=== PATIENT | female | born 1975 | race Caucasian/White ===

== ENCOUNTER 2017-02-09 20:18 | Emergency (ER) | payer MEDICARE ==
[2017-02-09 20:56] VITALS: BP 107/71
--- NOTE | 2017-02-10 00:13 | EDM.PDOC ---
ED HPI GENERAL MEDICAL PROBLEM - General Chief Complaint: General Stated Complaint: DIZZINESS Time Seen by Provider: 02/09/17 21:08 Source of Information: Reports: Patient, Family History Limitations: Reports: No Limitations - History of Present Illness INITIAL COMMENTS - FREE TEXT/NARRATIVE: History of present illness: [41-year-old female presenting with her mother with an episode of dizziness in which she felt like she was going to pass out. In visiting with her mother she does have episodes of dizziness but has never passed out. She seems to have a learning disability but pleasant and conversant. She had no chest pain shortness breath with this. Denies any visual disturbances. No nausea or vomiting.] Review of systems: As per history of present illness and below otherwise all systems reviewed and negative. Past medical history: As per history of present illness and as reviewed below otherwise noncontributory. Surgical history: As per history of present illness and as reviewed below otherwise noncontributory. Social history: No reported history of drug or alcohol abuse. Family history: As per history of present illness and as reviewed below otherwise noncontributory. Physical exam: HEENT: Atraumatic, normocephalic, pupils reactive, negative for conjunctival pallor or scleral icterus, mucous membranes moist, throat clear, neck supple, nontender, trachea midline. Lungs: Clear to auscultation, breath sounds equal bilaterally, chest nontender. Heart: S1S2, regular, negative for clicks, rubs, or JVD. Abdomen: Soft, nondistended, nontender. Negative for masses or hepatosplenomegaly. Negative for costovertebral tenderness. Pelvis: Stable nontender. Genitourinary: Deferred. Rectal: Deferred. Extremities: Atraumatic, negative for cords or calf pain. Neurovascular unremarkable. Neuro: Awake, alert, oriented. Exam nonfocal. Diagnostics: [Head CT was obtained tonight and appears she may have a Chiari 1 malformation. 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 This was discussed with mom. I also provided some information on this disorder. Many of the symptoms that she can have with this disorder she has. The information provided was from the [facility] site. She will follow-up with her primary care to pursue further workup and ultimately perhaps a neuro referral would be helpful] Definitive disposition and diagnosis as appropriate pending reevaluation and review of above. Generalized Pain Score (Numeric/FACES): 10 - Related Data Allergies Allergy/AdvReac Type Severity Reaction Status Date / Time omeprazole AdvReac Intermediate Dizziness Verified 01/26/17 15:46 Home Meds: Home Meds Cholecalciferol (Vitamin D3) [Vitamin D] 2,000 unit PO DAILY 06/12/13 [History] Ibuprofen [Advil] 400 mg PO DAILY PRN 05/07/15 [History] Lansoprazole [Prevacid] 30 mg PO DAILY 05/07/15 [History] Sucralfate [Carafate] 1 gm PO BEDTIME 05/07/15 [History] Hydrochlorothiazide/Lisinopril [Lisinopril-HCTZ 20-25 MG] 1 tab PO DAILY [History] busPIRone [Buspar] 10 mg PO DAILY 02/09/17 [History] Past Medical History HEENT History: Reports: Other (See Below) Other HEENT History: heavy wax Cardiovascular History: Reports: Hypertension Respiratory History: Reports: None Other Gastrointestinal History: barretts esophagus Musculoskeletal History: Reports: Back Pain, Chronic Other Musculoskeletal History: scoliosis, kyphosis. bulging lumbar disk. Psychiatric History: Reports: Anxiety Other Psychiatric History: learning disabled. - Infectious Disease History Infectious Disease History: Reports: Chicken Pox - Past Surgical History HEENT Surgical History: Reports: Tonsillectomy Other HEENT Surgeries/Procedures: lasik eye surg. , adnoidectomy GI Surgical History: Reports: Appendectomy, Cholecystectomy Female Surgical History: Reports: Hysterectomy Social & Family History - Tobacco Use Smoking Status *Q: Never Smoker Second Hand Smoke Exposure: No - Caffeine Use Caffeine Use: Reports: Coffee - Alcohol Use Days Per Week of Alcohol Use: 0 - Recreational Drug Use Recreational Drug Use: No ED ROS GENERAL - Review of Systems Review Of Systems: ROS reveals no pertinent complaints other than HPI. ED EXAM, GENERAL - Physical Exam Exam: See Below Course - Vital Signs Last Recorded V/S: Last Vital Signs Temp 35.9 C 02/09/17 21:05 Pulse 94 02/09/17 21:05 Resp 16 02/09/17 21:05 BP 107/71 02/09/17 21:05 Pulse Ox 92 L 02/09/17 21:05 Orthostatic Blood Pressure [ 102/82 Standing] Orthostatic Blood Pressure [ 120/70 Sitting] Orthostatic Blood Pressure [ 106/70 Supine] - Orders/Labs/Meds Orders: Active Orders 24 hr Category Date Time Status Ear Irrigation [RC] ASDIRECTED Care 02/09/17 21:19 Active Orthostatic Vital Signs [RC] ASDIRECTED Care 02/09/17 21:20 Active Head wo Cont [CT] Stat Exams 02/09/17 22:18 Taken Labs: Laboratory Tests 02/09/17 02/09/17 Range/Units 21:55 21:55 WBC 11.5 H (4.5-11.0) K/uL RBC 4.18 (3.30-5.50) M/uL Hgb 13.2 (12.0-15.0) g/dL Hct 38.0 (36.0-48.0) % MCV 91 (80-98) fL MCH 32 H (27-31) pg MCHC 35 (32-36) % Plt Count 233 (150-400) K/uL Neut % (Auto) 71 H (36-66) % Lymph % (Auto) 23 L (24-44) % Terry % (Auto) 6 (2-6) % Eos % (Auto) 0 L (2-4) % Baso % (Auto) 0 (0-1) % Sodium 136 L (140-148) mmol/L Potassium 3.7 (3.6-5.2) mmol/L Chloride 100 (100-108) mmol/L Carbon Dioxide 30 (21-32) mmol/L Anion Gap 9.7 (5.0-14.0) mmol/L BUN 11 (7-18) mg/dL Creatinine 0.8 (0.6-1.0) mg/dL Est Cr Clr Drug Dosing 72.45 mL/min Estimated GFR (MDRD) > 60 (>60) Glucose 103 (74-106) mg/dL Calcium 9.7 (8.5-10.1) mg/dL Total Bilirubin 0.3 (0.2-1.0) mg/dL AST 15 (15-37) U/L ALT 21 (12-78) U/L Alkaline Phosphatase 42 L (46-116) U/L Total Protein 7.2 (6.4-8.2) g/dL Albumin 3.7 (3.4-5.0) g/dL Globulin 3.5 (2.3-3.5) g/dL Albumin/Globulin Ratio 1.1 L (1.2-2.2) Departure - Departure Time of Disposition: 00:13 Disposition: Home, Self-Care 01 Condition: Good Clinical Impression: Chiari I malformation - Discharge Information Forms: ED Department Discharge Additional Instructions: As discussed I would recommend following up with her primary care so that the MRIs that we discussed could be ordered. After that perhaps a referral to neurology would be helpful. - My Orders Last 24 Hours: My Active Orders 02/09/17 21:19 Ear Irrigation [RC] ASDIRECTED 02/09/17 21:20 Orthostatic Vital Signs [RC] ASDIRECTED 02/09/17 22:18 Head wo Cont [CT] Stat - Assessment/Plan Last 24 Hours: My Active Orders 02/09/17 21:19 Ear Irrigation [RC] ASDIRECTED 02/09/17 21:20 Orthostatic Vital Signs [RC] ASDIRECTED 02/09/17 22:18 Head wo Cont [CT] Stat
== END 2017-02-10 00:29 | disposition home or self-care (01) ==
LOC: JP.ED 20:18
DX: G93.5 Compression of brain (principal); I10 Essential (primary) hypertension; F41.9 Anxiety disorder, unspecified; Z90.49 Acquired absence of other specified parts of digestive tract; Z90.710 Acquired absence of both cervix and uterus; Z98.890 Other specified postprocedural states; Z79.899 Other long term (current) drug therapy; Z88.8 Allergy status to other drugs, medicaments and biological substances
CPT/HCPCS: 36415; 70450; 80053; 85025; 99284; 99285-25

== ENCOUNTER 2017-07-02 06:44 | Day surgery (SDC) | payer MEDICARE ==
[2017-07-02] MEDS ORDERED: Dextrose 5%-Lactated Ringers 1,000 ML IV SCH (07:45)
[2017-07-02] MEDS ORDERED: fentaNYL 100 MCG/2 ML SDV ONE (07:56)
[2017-07-02] MEDS ORDERED: Propofol 200 MG/20 ML SDV ONE (07:56)
[2017-07-02] MEDS ORDERED: Glycopyrrolate 0.2 MG/ML 2 ML SDV IVPUSH ONE (08:00)
[2017-07-02 09:41] VITALS: BP 122/79
--- NOTE | 2017-07-10 14:02 | OR ---
DATE OF PROCEDURE: 07/02/2017 PREOPERATIVE DIAGNOSIS: Worsening gastroesophageal reflux disease. POSTOPERATIVE DIAGNOSES: 1. Small hiatal hernia with associated active gastroesophageal reflux disease and possible Zavala's esophagus. 2. Multiple gastric polyps. 3. Retained gastric bile with diffuse gastritis. OPERATIVE PROCEDURE: Esophagogastroduodenoscopy with: 1. Biopsies of antrum for CLOtest. 2. Biopsies of esophagogastric junction for histologic evaluation. 3. Gastric polypectomy by snare technique. ANESTHESIA: IV sedation. INDICATIONS FOR PROCEDURE: A 41-year-old presenting with progressively worsening problems with gastroesophageal reflux symptoms. The plan is to proceed with upper GI endoscopy with biopsies as indicated. Potential risks including bleeding and perforation were discussed with the patient and her mother and they wished to proceed. DETAILS OF PROCEDURE: The patient was taken to the operating room and placed in a left lateral decubitus position. IV sedation was administered after which the upper GI endoscope was passed orally through the length of the esophagus and into the stomach with retroflexion view of the fundus, thereafter through the pyloric channel into the junction of the third and fourth portions of the duodenum. Findings included normal hypopharynx, larynx, upper esophageal sphincter, and esophageal body. At the EG junction, the patient had a small hiatal hernia with quite active gastroesophageal reflux disease with considerable reddening and friability of the mucosa. There was some upward extension of the gastric type mucosa consistent with possible Zavala's esophagus, no strictures or plaquing were noted. Within the stomach, there was more or less diffuse gastritis associated with some moderate amount of retained bile. There were multiple polyps located within the gastric fundus and body consistent with long-term acid blockade treatment, none of these appeared to be worrisome, but the largest one was excised for histologic confirmation. The pyloric channel and visualized portions of the duodenum were unremarkable. At this point, biopsies were obtained from the antrum and sent for CLOtest with H. pylori and then multiple biopsies were obtained from the esophagogastric junction and sent for histologic evaluation. Finally, the largest of the gastric polyps in the gastric body was encircled at its base with a snare and cauterized across its base with the snare and then retrieved with a basket and sent for histologic evaluation. Good hemostasis was noted at all sites of the biopsies and the polypectomy and the procedure was concluded. The patient was taken to the recovery room in satisfactory condition. Plan will be to continue the patient with Protonix and she would appear to be probably a reasonable candidate for antireflux procedure. This will be discussed on an ongoing basis with the patient and her mother. Ubalod Mancera MD /[id number]
== END 2017-07-02 10:21 | disposition home or self-care (01) ==
LOC: JP.SDS 06:44
PROVIDERS: ATTEND Surgery
DX: K31.7 Polyp of stomach and duodenum (principal); K29.70 Gastritis, unspecified, without bleeding; K44.9 Diaphragmatic hernia without obstruction or gangrene; K21.9 Gastro-esophageal reflux disease without esophagitis; I10 Essential (primary) hypertension; F41.9 Anxiety disorder, unspecified; Z90.49 Acquired absence of other specified parts of digestive tract; Z90.710 Acquired absence of both cervix and uterus; Z88.8 Allergy status to other drugs, medicaments and biological substances
CPT/HCPCS: 36415; 43239; 43251; 80048; 82306; 83735; 87081; 88305; J2704; J3010; J7042; J3490

== ENCOUNTER 2017-07-03 10:10 | Emergency (ER) | payer MEDICARE ==
[2017-07-03 10:28] VITALS: BP 122/77
--- NOTE | 2017-07-03 10:39 | EDM.PDOC ---
ED HPI GENERAL MEDICAL PROBLEM - General Chief Complaint: ENT Problem Stated Complaint: SOMETHING IN RIGHT SIDE OF NOSE Time Seen by Provider: 07/03/17 10:39 Source of Information: Reports: Patient History Limitations: Reports: No Limitations - History of Present Illness INITIAL COMMENTS - FREE TEXT/NARRATIVE: pt feels like her rt nostril is plugged. Onset: Gradual Duration: Day(s):, Getting Worse Location: Reports: Face Associated Symptoms: Reports: Other ( rt nare is plugged. ) - Related Data Allergies Allergy/AdvReac Type Severity Reaction Status Date / Time omeprazole AdvReac Intermediate Dizziness Verified 07/02/17 07:07 Home Meds: Home Meds Cholecalciferol (Vitamin D3) [Vitamin D] 2,000 unit PO DAILY 06/12/13 [History] Lansoprazole [Prevacid] 30 mg PO DAILY 05/07/15 [History] Sucralfate [Carafate] 1 gm PO BEDTIME 05/07/15 [History] Hydrochlorothiazide/Lisinopril [Lisinopril-HCTZ 20-25 MG] 1 tab PO DAILY [History] Acetaminophen [Tylenol] 325 - 650 mg PO Q6HR PRN 07/02/17 [History] Acetaminophen/Caffeine [Excedrin Tension Headache] 2 tab PO Q6HR PRN 07/02/17 [ History] Calcium Carbonate [Tums] 500 mg PO DAILY 07/02/17 [History] Carboxymethyl/Gly/Poly80/Pf [Refresh Optive Advanced Drops] 1 each OP ASDIRECTED 07/02/17 [History] Krill/Om-3/DHA/EPA/Phospho/Ast [Krill Oil 500 mg Softgel] 1 each PO DAILY [History] MV-Min/Vit C/Glu/Teodora HCl/HC124 [Airborne Effervescent Tablet] 1 each PO DAILY [History] Past Medical History HEENT History: Reports: Other (See Below) Other HEENT History: heavy wax Cardiovascular History: Reports: Hypertension Respiratory History: Reports: None Gastrointestinal History: Reports: GERD Other Gastrointestinal History: barretts esophagus Genitourinary History: Reports: None Musculoskeletal History: Reports: Back Pain, Chronic, Other (See Below) Other Musculoskeletal History: scoliosis, kyphosis. bulging lumbar disk. bursitis left hip Neurological History: Reports: None Psychiatric History: Reports: Anxiety Other Psychiatric History: learning disabled. - Infectious Disease History Infectious Disease History: Reports: Chicken Pox - Past Surgical History HEENT Surgical History: Reports: Adenoidectomy, Myringotomy w Tube(s), Tonsillectomy Other HEENT Surgeries/Procedures: lasik eye surg. , adnoidectomy Cardiovascular Surgical History: Reports: None GI Surgical History: Reports: Appendectomy, Cholecystectomy, Colonoscopy, EGD Female Surgical History: Reports: Hysterectomy Neurological Surgical History: Reports: C-Spine Musculoskeletal Surgical History: Reports: None Social & Family History - Family History Family Medical History: Noncontributory - Tobacco Use Smoking Status *Q: Never Smoker Second Hand Smoke Exposure: No - Caffeine Use Caffeine Use: Reports: Coffee, Soda - Alcohol Use Days Per Week of Alcohol Use: 0 - Recreational Drug Use Recreational Drug Use: No ED ROS ENT - Review of Systems Review Of Systems: See Below Constitutional: Reports: No Symptoms HEENT: Reports: Rhinitis Respiratory: Reports: Other ( difficulty breathing through the nostrils. ) Cardiovascular: Reports: No Symptoms Endocrine: Reports: No Symptoms GI/Abdominal: Reports: No Symptoms : Reports: No Symptoms Musculoskeletal: Reports: No Symptoms Skin: Reports: No Symptoms ED EXAM, ENT - Physical Exam Exam: See Below Text/Narrative:: pt feels like her nose is plugged. It was noted she had swelling in the area. Exam Limited By: No Limitations General Appearance: Alert, Anxious, Mild Distress Ears: Normal TMs Nose: Nasal Swelling, Other ( Pt has considerable swelling of the mucous membranes of the nose. She may have a polyp present. Because of all the swelling it is difficult to visualize. ) Mouth/Throat: Normal Inspection Head: Atraumatic Neck: Normal Inspection Respiratory/Chest: No Respiratory Distress Course - Vital Signs Last Recorded V/S: Last Vital Signs Temp 36.7 C 07/03/17 10:26 Pulse 77 07/03/17 10:26 Resp 14 07/03/17 10:26 BP 122/77 07/03/17 10:26 Pulse Ox 100 07/03/17 10:26 - Orders/Labs/Meds Labs: Laboratory Tests 07/03/17 Range/Units 10:41 WBC 10.7 (4.5-11.0) K/uL RBC 4.25 (3.30-5.50) M/uL Hgb 13.0 (12.0-15.0) g/dL Hct 37.7 (36.0-48.0) % MCV 89 (80-98) fL MCH 31 (27-31) pg MCHC 35 (32-36) % Plt Count 229 (150-400) K/uL Neut % (Auto) 72 H (36-66) % Lymph % (Auto) 22 L (24-44) % Moody % (Auto) 6 (2-6) % Eos % (Auto) 1 L (2-4) % Baso % (Auto) 0 (0-1) % Meds: Medications Discontinued Medications Generic Name Dose Route Start Last Admin Trade Name Freq PRN Reason Stop Dose Admin Oxymetazoline HCl 1 ml 07/03/17 10:59 07/03/17 11:10 Afrin Original 0.05% Nasal [place] TAY 07/03/17 11:00 1 ml ONETIME ONE Administration Triamcinolone Acetonide 60 mg 07/03/17 10:58 07/03/17 11:10 Kenalog-40 INJECT 07/03/17 10:59 60 mg ASDIRECTED ONE Administration Departure - Departure Time of Disposition: 11:01 Disposition: Home, Self-Care 01 Condition: Fair Clinical Impression: Acute allergic rhinitis - Discharge Information Instructions: Allergic Rhinitis Referrals: Latisha Palumbo PA [Primary Care Provider] - Forms: ED Department Discharge Care Plan Goals: cool mist humidifier, afrin nasal spray-- use tid for 1 week, referal to ENt, Consider steriod nasal spray in the future.
[2017-07-03] MEDS ORDERED: Triamcinolone Acetonide 40 MG/ML 1 ML MDV INJECT ONE (10:58)
[2017-07-03] MEDS ORDERED: Oxymetazoline 0.05% Nasal Spray 15 ML Bottle NAS ONE (10:59)
== END 2017-07-03 11:21 | disposition home or self-care (01) ==
LOC: JP.ED 10:10
DX: J30.9 Allergic rhinitis, unspecified (principal); J00 Acute nasopharyngitis [common cold]; I10 Essential (primary) hypertension; Z88.8 Allergy status to other drugs, medicaments and biological substances; Z79.899 Other long term (current) drug therapy
CPT/HCPCS: 36415; 85025; 99283; A9270; J3301

== ENCOUNTER 2017-08-22 06:23 | Inpatient (IN) | payer MEDICARE ==
[2017-08-22] MEDS ORDERED: Acetaminophen 500 MG Tab PO ONE (07:00)
[2017-08-22] MEDS ORDERED: Scopolamine 1.5 MG Transdermal Patch TOP SCH (07:00)
[2017-08-22] MEDS ORDERED: ceFAZolin 2 GM in Premix Bag 1 BAG IV ONE (07:00)
[2017-08-22] MEDS ORDERED: Dextrose 5%-Lactated Ringers 1,000 ML IV SCH (07:00)
[2017-08-22] MEDS ORDERED: Celecoxib 200 MG Cap PO ONE (07:00)
[2017-08-22] MEDS ORDERED: Neostigmine Methylsulfate 1 MG/ML 5 ML Syringe ONE (08:01)
[2017-08-22] MEDS ORDERED: Rocuronium 50 MG/5 ML Vial ONE (08:01)
[2017-08-22] MEDS ORDERED: Ondansetron 4 MG/2 ML SDV ONE (08:01)
[2017-08-22] MEDS ORDERED: Dexamethasone 4 MG/ML SDV ONE (08:01)
[2017-08-22] MEDS ORDERED: Propofol 200 MG/20 ML SDV ONE (08:01)
[2017-08-22] MEDS ORDERED: Succinylcholine 200 MG/10 ML MDV ONE (08:01)
[2017-08-22] MEDS ORDERED: Glycopyrrolate 0.2 MG/ML 5 ML MDV ONE (08:01)
[2017-08-22] MEDS ORDERED: Ropivacaine 40 ML, Dexamethasone 8 MG, EPINEPHrine 0.4 MG, Sodium Chloride 0.9% 37.6 ML NERVRT ONE ×4 (08:15)
[2017-08-22] MEDS ORDERED: Naloxone 0.4 MG/ML SDV IV PRN (11:20)
[2017-08-22] MEDS ORDERED: HYDROmorphone/Normal Saline 15 MG/30 ML PCA IV PRN (11:20)
[2017-08-22] MEDS ORDERED: hydrOXYzine HCl 25 MG Tab PO PRN (11:32)
[2017-08-22] MEDS ORDERED: hydrOXYzine HCl 100 MG/2 ML SDV IM PRN (11:32)
[2017-08-22] MEDS ORDERED: Ondansetron 4 MG/2 ML SDV IV PRN (11:33)
[2017-08-22] MEDS: Dextrose 5%-Lactated Ringers 1,000 ML IV SCH ×2 (11:48→18:26)
[2017-08-22] MEDS: Metoclopramide 10 MG/2 ML SDV IV SCH ×2 (15:24→23:58)
[2017-08-22] MEDS: Pantoprazole 40 MG Vial IV SCH (15:24)
[2017-08-22] MEDS: VERIFY SCOP PATCH TOP SCH (15:25)
[2017-08-23] MEDS: Dextrose 5%-Lactated Ringers 1,000 ML IV SCH (01:06)
[2017-08-23] MEDS: Metoclopramide 10 MG/2 ML SDV IV SCH ×3 (07:04→22:37)
[2017-08-23] MEDS ORDERED: Dextrose 5%-Lactated Ringers 1,000 ML IV SCH (07:44)
[2017-08-23] MEDS: Fluticasone Propionate Nasal Spray 16 GM Bottle NAS SCH (08:22)
[2017-08-23] MEDS ORDERED: Non-Formulary Medication 1 Each (Hydrochlorothiazide/Lisinopril [Lisinopril-Hctz 20-25 Mg] PO SCH (09:00)
[2017-08-23] MEDS ORDERED: Acetaminophen 325 MG Tab PO SCH (09:00)
[2017-08-23] MEDS: Lisinopril 20 MG Tab PO SCH (09:12)
[2017-08-23] MEDS: Hydrochlorothiazide 25 MG Tab PO SCH (09:13)
[2017-08-23] MEDS: VERIFY SCOP PATCH TOP SCH (09:13)
[2017-08-23] MEDS ORDERED: hydrOXYzine HCl 100 MG/2 ML SDV IM PRN (10:01)
[2017-08-23] MEDS: Acetaminophen 325 MG Tab PO SCH ×3 (11:23→22:37)
[2017-08-23] MEDS: Pantoprazole 40 MG Vial IV SCH (14:09)
--- NOTE | 2017-08-23 16:17 | PCM.SURGPN ---
- General Info Date of Service: 08/23/17 Date of Surgery/Procedure: 08/22/17 POD#: 2 Post-Op Diagnosis: GERD Functional Status: Reports: Pain Controlled, Tolerating Diet, Incentive Spirometry - Review of Systems General: Reports: No Symptoms Pulmonary: Reports: No Symptoms Cardiovascular: Reports: No Symptoms Gastrointestinal: Reports: No Symptoms - Patient Data Vitals - Most Recent: Last Vital Signs Temp 98.4 F 08/23/17 11:29 Pulse 58 L 08/23/17 11:29 Resp 18 08/23/17 11:29 BP 93/57 L 08/23/17 11:29 Pulse Ox 97 08/23/17 11:29 Weight - Most Recent: 178 lb I&O - Last 24 Hours: Intake & Output 08/23/17 08/23/17 08/23/17 06:59 14:59 22:59 Intake Total 2661 820 Output Total 100 500 Balance 2561 320 Med Orders - Current: Current Medications Acetaminophen (Tylenol) 650 mg PO Q6H [facility] Last Admin: 08/23/17 11:23 Dose: 650 mg Fluticasone Propionate (Flonase) 0 gm TAY DAILY [facility] Last Admin: 08/23/17 08:22 Dose: 1 spray Hydrochlorothiazide (Hydrochlorothiazide) 25 mg PO DAILY [facility] Last Admin: 08/23/17 09:13 Dose: 25 mg Hydromorphone HCl (Dilaudid Curing Oven Tender 15 Mg In Ns 30 Ml) 0 mg IV ASDIRECTED PRN; Protocol PRN Reason: SR VICE PRESIDENT PAIN CONTROL Last Admin: 08/22/17 11:32 Dose: 15 mg Hydroxyzine HCl (Atarax) 100 mg PO Q4H PRN PRN Reason: PAIN Hydroxyzine HCl (Vistaril) 100 mg IM Q4H PRN PRN Reason: PAIN Dextrose/Lactated Ringer's (Dextrose 5%-Lactated Ringers) 1,000 mls @ 80 mls/ hr IV ASDIRECTED [facility] Last Admin: 08/23/17 08:23 Dose: 80 mls/hr Ibuprofen (Motrin) 400 mg CHEW Q6H [facility] Last Admin: 08/23/17 14:09 Dose: 400 mg Lisinopril (Prinivil) 20 mg PO DAILY [facility] Last Admin: 08/23/17 09:12 Dose: 20 mg Metoclopramide HCl (Reglan) 10 mg IV Q8H [facility] Last Admin: 08/23/17 14:09 Dose: 10 mg Naloxone HCl (Narcan) 0.1 mg IV ASDIRECTED PRN PRN Reason: decreased respiratory rate Verify Scop Patch 0 each TOP DAILY [facility] Stop: 08/25/17 04:00 Last Admin: 08/23/17 09:13 Dose: Not Given Ondansetron HCl (Zofran) 4 mg IV Q4H PRN PRN Reason: N/V Pantoprazole Sodium (Protonix Iv) 40 mg IV Q24H [facility] Last Admin: 08/23/17 14:09 Dose: 40 mg Scopolamine (Transderm-Scop) 1.5 mg TOP Q72H [facility] Stop: 08/25/17 03:00 Last Admin: 08/22/17 06:50 Dose: 1.5 mg Discontinued Medications Acetaminophen (Tylenol Extra Strength) 1,000 mg PO ONETIME ONE Stop: 08/22/17 07:01 Last Admin: 08/22/17 06:50 Dose: 1,000 mg Celecoxib (Celebrex) 200 mg PO ONETIME ONE Stop: 08/22/17 07:01 Last Admin: 08/22/17 06:50 Dose: 200 mg Ropivacaine 40 ml/Dexamethasone 8 mg/Epinephrine HCl 0.4 mg/ Sodium Chloride 37.6 ml 0 ml NERVRT ONETIME ONE Stop: 08/22/17 08:16 Last Admin: 08/22/17 09:00 Dose: 80 syringe Dexamethasone (Dexamethasone) Confirm Administered Dose 4 mg .ROUTE .STK-MED ONE Stop: 08/22/17 08:02 Fentanyl Citrate (Fentanyl) Confirm Administered Dose 500 mcg .ROUTE .STK-MED ONE Stop: 08/22/17 08:02 Glycopyrrolate (Robinul) Confirm Administered Dose 1 mg .ROUTE .STK-MED ONE Stop: 08/22/17 08:02 Cefazolin Sodium 2 gm/ Premix 20 mls @ 240 mls/hr IV ONETIME ONE Stop: 08/22/17 07:04 Last Admin: 08/22/17 08:30 Dose: 240 mls/hr Dextrose/Lactated Ringer's (Dextrose 5%-Lactated Ringers) 1,000 mls @ 100 mls/ hr IV ASDIRECTED [facility] Last Admin: 08/22/17 07:16 Dose: 100 mls/hr Dextrose/Lactated Ringer's (Dextrose 5%-Lactated Ringers) 1,000 mls @ 150 mls/ hr IV ASDIRECTED [facility] Last Admin: 08/23/17 01:06 Dose: 150 mls/hr Neostigmine Methylsulfate (Neostigmine) Confirm Administered Dose 5 mg .ROUTE .STK-MED ONE Stop: 08/22/17 08:02 Ondansetron HCl (Zofran) Confirm Administered Dose 4 mg .ROUTE .STK-MED ONE Stop: 08/22/17 08:02 Propofol (Diprivan 20 Ml) Confirm Administered Dose 200 mg .ROUTE .STK-MED ONE Stop: 08/22/17 08:02 Rocuronium Chancellor (Zemuron) Confirm Administered Dose 50 mg .ROUTE .STK-MED ONE Stop: 08/22/17 08:02 Succinylcholine Chloride (Quelicin) Confirm Administered Dose 200 mg .ROUTE .STK -MED ONE Stop: 08/22/17 08:02 - Exam Wound/Incisions: Healing Well, Dressing Dry and Intact General: Alert, Oriented HEENT: EOMI Lungs: Clear to Auscultation, Normal Respiratory Effort Cardiovascular: Regular Rate, Regular Rhythm, Murmurs, Other (2/6 systolic murmur at left upper sternal border) GI/Abdominal Exam: Non-Tender, No Distention Skin: Warm, Dry, Intact Neurological: No New Focal Deficit - Problem List Review Problem List Initiated/Reviewed/Updated: Yes - My Orders Last 24 Hours: Active Orders 24 hr Category Date Time Status Admission Status [Patient Status] [ADT] Routine ADT 08/23/17 13:24 Active Communication Order [RC] ASDIRECTED Care 08/22/17 18:32 Active May Shower [RC] ASDIRECTED Care 08/23/17 07:45 Active Full Liquid Diet [DIET] Diet 08/23/17 Breakfast Ordered Acetaminophen [Tylenol] Med 08/23/17 11:00 Active 650 mg PO Q6H Dextrose 5%-Lactated Ringers 1,000 ml Med 08/23/17 07:44 Active IV ASDIRECTED Fluticasone Propionate [Flonase] Med 08/23/17 09:00 Active 0 gm TAY DAILY Hydrochlorothiazide Med 08/23/17 09:00 Active 25 mg PO DAILY Ibuprofen [Motrin] Med 08/23/17 08:00 Active 400 mg CHEW Q6H Lisinopril [Prinivil] Med 08/23/17 09:00 Active 20 mg PO DAILY Non-Formulary Medication [NF Drug] Med 08/22/17 16:00 Active 0 each TOP DAILY hydrOXYzine HCl [Vistaril] Med 08/23/17 10:01 Active 100 mg IM Q4H PRN Remove Dressing [OM.PC] Routine Oth 08/23/17 07:45 Ordered Medication Orders Acetaminophen (Tylenol) 650 mg PO Q6H [facility] Last Admin: 08/23/17 11:23 Dose: 650 mg Fluticasone Propionate (Flonase) 0 gm TAY DAILY [facility] Last Admin: 08/23/17 08:22 Dose: 1 spray Hydrochlorothiazide (Hydrochlorothiazide) 25 mg PO DAILY [facility] Last Admin: 08/23/17 09:13 Dose: 25 mg Hydromorphone HCl (Dilaudid Curing Oven Tender 15 Mg In Ns 30 Ml) 0 mg IV ASDIRECTED PRN; Protocol PRN Reason: SR VICE PRESIDENT PAIN CONTROL Last Admin: 08/22/17 11:32 Dose: 15 mg Hydroxyzine HCl (Atarax) 100 mg PO Q4H PRN PRN Reason: PAIN Hydroxyzine HCl (Vistaril) 100 mg IM Q4H PRN PRN Reason: PAIN Dextrose/Lactated Ringer's (Dextrose 5%-Lactated Ringers) 1,000 mls @ 80 mls/ hr IV ASDIRECTED [facility] Last Admin: 08/23/17 08:23 Dose: 80 mls/hr Ibuprofen (Motrin) 400 mg CHEW Q6H [facility] Last Admin: 08/23/17 14:09 Dose: 400 mg Admin: 08/23/17 08:22 Dose: 400 mg Lisinopril (Prinivil) 20 mg PO DAILY [facility] Last Admin: 08/23/17 09:12 Dose: 20 mg Metoclopramide HCl (Reglan) 10 mg IV Q8H [facility] Last Admin: 08/23/17 14:09 Dose: 10 mg Admin: 08/23/17 07:04 Dose: 10 mg Admin: 08/22/17 23:58 Dose: 10 mg Admin: 08/22/17 15:24 Dose: 10 mg Naloxone HCl (Narcan) 0.1 mg IV ASDIRECTED PRN PRN Reason: decreased respiratory rate Verify Scop Patch 0 each TOP DAILY [facility] Stop: 08/25/17 04:00 Last Admin: 08/23/17 09:13 Dose: Admin: 08/22/17 15:25 Dose: Ondansetron HCl (Zofran) 4 mg IV Q4H PRN PRN Reason: N/V Pantoprazole Sodium (Protonix Iv) 40 mg IV Q24H [facility] Last Admin: 08/23/17 14:09 Dose: 40 mg Admin: 08/22/17 15:24 Dose: 40 mg Scopolamine (Transderm-Scop) 1.5 mg TOP Q72H [facility] Stop: 08/25/17 03:00 Last Admin: 08/22/17 06:50 Dose: 1.5 mg - Assessment Assessment (Free Text/Narrative):: Roxi is a 41 year old woman here on POD#1 s/p norris funduplocation. She is doing well with pain well-controlled at 2/10, having only used her SR VICE PRESIDENT one time overnight. She is tolerating ice chips well. She is up and ambulating. She has voided. She is using incentive spirometry regularly. Dressings dry and intact. - Plan Plan (Free Text/Narrative):: Diet: Change to full liquid diet. Dressings: remove dressings today. Activity: continue ambulating, up to shower, continue use of incentive spirometer Pain: alternate between 650 tylenol mg q6hr prn and 400mg ibuprofen q4hr prn GI: 40mg IV protonix, metoclopromide Pt slightly hypotensive: initiate LR 80mL/hr Medical management per Dr. Cloud.
[2017-08-24] MEDS: Acetaminophen 325 MG Tab PO SCH ×2 (05:06→11:17)
[2017-08-24] MEDS: Metoclopramide 10 MG/2 ML SDV IV SCH (05:06)
[2017-08-24] MEDS: Fluticasone Propionate Nasal Spray 16 GM Bottle NAS SCH (08:52)
[2017-08-24] MEDS: Hydrochlorothiazide 25 MG Tab PO SCH (08:52)
[2017-08-24] MEDS: Lisinopril 20 MG Tab PO SCH (08:52)
[2017-08-24] MEDS: VERIFY SCOP PATCH TOP SCH (08:53)
[2017-08-24 11:07] VITALS: BP 104/73
--- NOTE | 2017-08-25 07:37 | DISCH ---
ADMISSION DIAGNOSES: 1. Gastroesophageal reflux disease refractory to medical management. 2. Zavala esophagus. 3. Hypertension. 4. Chiari I malformation. DISCHARGE DIAGNOSES: Laparoscopic Stefano fundoplication and excision of mediastinal lipoma for gastroesophageal reflux disease refractory to medical management and mediastinal lipoma. HISTORY: Roxi is a 41-year-old female with longstanding history of GERD refractory to medical management and Zavala esophagus. After preoperative evaluation and discussion of possible risks and possible complications, she wished to proceed with surgical procedure. HOSPITAL COURSE: Roxi had her surgery on 08/22/2017. She had no operative complications. On postop day #1, she was started on a full liquid diet and oral pain medications, Tylenol and Motrin, both chewable. Her activity was good. Her oral intake was adequate. Vital signs stable. She was able to be discharged to home on 08/24/2017. She did have one emesis prior to discharge, at that time she was taking some medication. PHYSICAL EXAMINATION: GENERAL: Roxi Patterson is a 41-year-old female. VITAL SIGNS: Height is 5 feet 3 inches. Weight is 178 pounds. BMI is 31.5. TPR is 97.7, 53, 16, and blood pressure 104/73. HEENT: Negative. NECK: Supple. HEART: Regular rate and rhythm. LUNGS: Clear. ABDOMEN: Incisions look good. Sutures in place. Abdominal binder has been on. EXTREMITIES: Without peripheral edema. DISPOSITION: Discharged to home. CONDITION: Stable and improving. FOLLOWUP APPOINTMENT: With Ubaldo Mancera MD, at [facility] on 08/31/2017 at 11 a.m. DISCHARGE MEDICATIONS: Home medications; 1. Tylenol 650 mg chewable q.6 hours, #100. 2. Motrin 400 mg chewable q.6 hours p.r.n. pain, #40. 3. She is to resume her home medications; Excedrin tension migraine 2 tabs oral q.6 hours, Lac-Hydrin 12% cream one applicator twice daily, calcium carbonate 500 to 1500 mg oral daily p.r.n. heartburn (Tums), zoopoav-zovhfwdcu-zrdg one daily, vitamin D3 2000 international units daily, Flonase one spray in each nostril daily, lisinopril/hydrochlorothiazide 20/25 one tablet daily, Prevacid 30 mg oral before breakfast, airborne effervescent tablet one oral 3 times a day p.r.n., omega-3 fish oil 500 soft gel one daily, and vitamin B complex one tablet oral daily. 4. Discontinue taking Carafate. DISCHARGE DIET: Full liquid diet for 2 weeks. Drink 8 to 10 glasses of water a day. ACTIVITY: As tolerated. No lifting greater than 10 pounds for 2 weeks. Other activity, walk inside your house 6 times daily. Shower/bathing, may shower. DISCHARGE INSTRUCTIONS: Notify provider if any fever, increased pain, nausea, or vomiting. Wound incision care, keep site clean and dry. Wear abdominal binder for 2 weeks and then as tolerated. Special instruction; use incentive spirometer 10 times every hour while awake.
--- NOTE | 2017-08-29 07:41 | OR ---
DATE OF PROCEDURE: 08/22/2017 PREOPERATIVE DIAGNOSIS: Gastroesophageal reflux disease refractory to medical management. POSTOPERATIVE DIAGNOSES: 1. Gastroesophageal reflux disease refractory to medical management. 2. Mediastinal lipoma. OPERATIVE PROCEDURE: Diagnostic laparoscopy with: 1. Repair of paraesophageal diaphragmatic hernia with mesh with concurrent Stefano fundoplication (67022). 2. Excision of mediastinal lipoma (05267). ANESTHESIA: General. TUBER MACHINE OPERATOR: Yamilex Clinton PA-C and MICHAEL Hollis3. INDICATIONS FOR PROCEDURE: This is a 41-year-old female presenting with ongoing gastroesophageal reflux disease that has became refractory to medical management. After preoperative evaluation and discussion, she and her mother wished to proceed with Stefano fundoplication. Potential risks including bleeding, infection, injury to the viscera in the area, problems with fundoplication such as dysphagia, gas-bloat syndrome, disorders of gastric emptying rate, as well as possible incomplete relief of reflux symptoms were all gone over, and they wished to proceed. DETAILS OF PROCEDURE: The patient was taken to the operating room and, after general endotracheal anesthesia was induced, was placed in a lithotomy position. Samano catheter was inserted, which was removed at the end of the procedure, and the abdomen was prepped and draped. At 15 cm inferior, 5 cm left of the xiphoid process, a transverse incision was made and the peritoneal cavity entered under direct vision with an Optiview trocar and inflated to 15 mmHg pressure of CO2. Laparoscope was then reinserted. No underlying trocar insertion site injuries were seen. Following this, bilateral subcostal transverse abdominis plane blocks were placed using direct visualization of the needle in terms of it being just underneath the peritoneum in the transverse abdominis muscle plane and the standard solution injected on both sides. Following this, 4 additional trocars were placed across the upper and mid abdomen, and general exploration was undertaken. The patient was noted to have a fairly substantial paraesophageal diaphragmatic hernia with there being a prolapse of the gastric fundus in a plane anterior to the course of the esophagus, along with some perigastric fat. This was reduced, and the peritoneum overlying the esophagogastric junction was initially divided and then down along the junction of the esophagus at the right and left crura. The esophagus was dissected away from the crura on each side, and following this, a retroesophageal window established. During the course of the dissection, a mediastinal lipoma was identified, and this was excised. The remaining attachments to the esophagus were then freed up using Harmonic Scalpel with care taken to avoid injury to the vagus nerves. This allowed development of a roughly 4-5 cm length of intraabdominal esophagus. The crural repair was then accomplished with a series of 0 Ethibond sutures reinforced with PTFE pledgets. The site of the crural defect was such that we felt adding some Phasix mesh would be helpful in terms of creating more in the way of scar in that area. The Phasix mesh was then cut such that it would lie over the crural repair and then slightly up along the crura on each side. The mesh was affixed with some titanium tacking screws. Following this, the omentum was divided away from the stomach being in the upper greater curvature. This dissection was done with Harmonic scalpel and continued up through the short gastric vessels, including the highest and posterior short gastric vessels. The fundus was felt to be satisfactorily mobilized at that point and was retrieved through the retroesophageal window. Anesthesia then passed a guidewire orally through the length of esophagus into the stomach. Over this, a 54-German Savary dilator was positioned, and a 3-stitch 2 cm fundoplication was accomplished with 0 Ethibond sutures reinforced with PTFE pledgets. Each of the fundoplication stitches included bites of underlying esophagus, and the uppermost one included also the top of the right crura. One additional stitch between the left side of fundoplication and the overlying diaphragm was then also placed to the same stitch/pledget combination. At that point, the guidewire and dilator were removed and the fundoplication was felt to be satisfactorily floppy. With no further problems noted, trocars were removed, and the peritoneal cavity was deflated. The patient was taken to the recovery room in satisfactory condition, after the skin was closed with some 4-0 Vicryl skin stitch. Physician veterinary assistant technician, Yamilex Clinton, played an essential role in assisting in this case, helping to position the patient, retract structures as needed, as well as cutting sutures and suturing when indicated. Her presence improved patient safety and decreased operative time. Ubaldo Mancera MD /[id number]
== END 2017-08-24 13:20 | disposition home or self-care (01) | DRG 326 ==
LOC: JP.SDS 06:23 → EEVIPCON 06:23 → JP.SDSSCHI 06:23 → EDSTATUS 07:30 → JP.2SS 10:10
PROVIDERS: ADMIT Surgery; ATTEND Surgery
PROC: 0DV44ZZ Restriction of Esophagogastric Junction, Percutaneous Endoscopic Approach (ICD-10-PCS; principal; 2017-08-22)
PROC: 0BUT4JZ Supplement Diaphragm with Synthetic Substitute, Percutaneous Endoscopic Approach (ICD-10-PCS; 2017-08-22)
PROC: 0WBC4ZX Excision of Mediastinum, Percutaneous Endoscopic Approach, Diagnostic (ICD-10-PCS; 2017-08-22)
PROC: 3E0T3BZ Introduction of Anesthetic Agent into Peripheral Nerves and Plexi, Percutaneous Approach (ICD-10-PCS; 2017-08-22)
DX: K21.9 Gastro-esophageal reflux disease without esophagitis (principal); G93.5 Compression of brain; D17.4 Benign lipomatous neoplasm of intrathoracic organs; I10 Essential (primary) hypertension; E55.9 Vitamin D deficiency, unspecified; Z88.8 Allergy status to other drugs, medicaments and biological substances; K22.70 Barrett's esophagus without dysplasia; K44.9 Diaphragmatic hernia without obstruction or gangrene
CPT/HCPCS: 88304; 94762; A9270-GY; C1781; C9113; J0171; J0330; J0690; J1100; J1170; J2405; J2704; J2710; J2765; J2795; J3010; J7042; J7050

== ENCOUNTER 2017-10-20 16:44 | Inpatient (IN) | payer MEDICARE ==
--- NOTE | 2017-10-20 18:38 | EDM.PDOC ---
ED HPI GENERAL MEDICAL PROBLEM - General Chief Complaint: Abdominal Pain Stated Complaint: TROUBLE EATING/ABD PAIN/SHOULDER PAIN Time Seen by Provider: 10/20/17 18:34 Source of Information: Reports: Patient, Family History Limitations: Reports: No Limitations - History of Present Illness INITIAL COMMENTS - FREE TEXT/NARRATIVE: PT ARRIVED BECAUSE AT 4 PM SHE DEVELOPED VERY ACUTE UPPER ABDOMANAL PAIN. sHE ALSO HAD ACUTE LEFT SHOULDER PAIN. . sHE WAS SWEAty and she did get very pale . She did have a Stefano in Aug and she has been struggling to eat much since that time. Onset: Today, Sudden Duration: Constant Location: Reports: Abdomen, Upper Extremity, Left Associated Symptoms: Reports: Weakness, Other (pt did become very pale, ) Abdominal Pain Score (Numeric/FACES): 10 - Related Data Allergies Allergy/AdvReac Type Severity Reaction Status Date / Time omeprazole AdvReac Intermediate Dizziness Verified 10/20/17 18:11 Home Meds: Home Meds Cholecalciferol (Vitamin D3) [Vitamin D3] 1,000 unit PO DAILY 06/12/13 [History] Hydrochlorothiazide/Lisinopril [Lisinopril-HCTZ 20-25 MG] 1 tab PO DAILY [History] Past Medical History HEENT History: Reports: Other (See Below) Other HEENT History: heavy wax Cardiovascular History: Reports: Hypertension Respiratory History: Reports: None Gastrointestinal History: Reports: GERD, Hiatal Hernia Other Gastrointestinal History: barretts esophagus Genitourinary History: Reports: None Musculoskeletal History: Reports: Back Pain, Chronic, Neck Pain, Chronic, Other (See Below) Other Musculoskeletal History: scoliosis, kyphosis. bulging lumbar disk. bursitis left hip. bilateral torn labrum Neurological History: Reports: Headaches, Chronic, Other (See Below) Other Neuro History: chiari malformation Psychiatric History: Reports: Developmental Delay, Learning Disability Other Psychiatric History: learning disabled. Endocrine/Metabolic History: Reports: Obesity/BMI 30+ - Infectious Disease History Infectious Disease History: Reports: Chicken Pox - Past Surgical History HEENT Surgical History: Reports: Adenoidectomy, LASIK, Myringotomy w Tube(s), Tonsillectomy GI Surgical History: Reports: Appendectomy, Cholecystectomy, Colonoscopy, EGD, Stefano Fundoplication Female Surgical History: Reports: Hysterectomy Neurological Surgical History: Reports: C-Spine Dermatological Surgical History: Reports: Other (See Below) Social & Family History - Family History Family Medical History: Noncontributory - Tobacco Use Smoking Status *Q: Never Smoker Second Hand Smoke Exposure: No - Caffeine Use Caffeine Use: Reports: None - Alcohol Use Days Per Week of Alcohol Use: 0 - Recreational Drug Use Recreational Drug Use: No ED ROS GENERAL - Review of Systems Review Of Systems: See Below HEENT: Reports: No Symptoms Respiratory: Reports: No Symptoms Cardiovascular: Reports: No Symptoms Endocrine: Reports: No Symptoms GI/Abdominal: Reports: Abdominal Pain, Other (pt had acute onset of upper abdomanal pain about 4 pm. She has had episodes where she gets pretty pale and she gets sweaty. She did have a Stefano In Aug.) : Reports: No Symptoms Musculoskeletal: Reports: No Symptoms Skin: Reports: No Symptoms ED EXAM, GI/ABD - Physical Exam Exam: See Below Text/Narrative:: pt arrived with acute upper abdomanal pain. Sh has been nauseated but has not been wretching. Exam Limited By: No Limitations General Appearance: Alert, Anxious, Moderate Distress, Other ( she has episodes that she gets very pale. ) Ears: Normal TMs Nose: Normal Inspection Throat/Mouth: Normal Inspection Head: Atraumatic Neck: Normal Inspection Respiratory/Chest: No Respiratory Distress Cardiovascular: Regular Rate, Rhythm, Tachycardia GI/Abdominal Exam: Tender, Other (pt is tender in the upper abdoman. This seemes to come and go. ) (Female) Exam: Deferred Rectal (Female) Exam: Deferred Back Exam: Normal Inspection Extremities: Normal Inspection Neurological: Alert, Oriented, Normal Cognition Psychiatric: Normal Affect, Other (pt is developmentally delayed) Course - Vital Signs Last Recorded V/S: Last Vital Signs Temp 35.6 C 10/20/17 18:04 Pulse 82 10/20/17 18:04 Resp 16 10/20/17 18:04 BP 133/86 10/20/17 18:04 Pulse Ox 98 10/20/17 18:04 - Orders/Labs/Meds Orders: Active Orders 24 hr Category Date Time Status EKG Documentation Completion [RC] ASDIRECTED Care 10/20/17 18:33 Active Abdomen Pelvis w Cont [CT] Stat Exams 10/20/17 19:19 Taken Abdomen Series w Chest 1V [CR] Urgent Exams 10/20/17 18:34 Taken Iopamidol [Isovue-300 (61%)] Med 10/20/17 20:00 Active 100 ml IV . DIRECTED Sodium Chloride 0.9% [Normal Saline] 1,000 ml Med 10/20/17 19:30 Active IV ASDIRECTED Sodium Chloride 0.9% [Normal Saline] 80 ml Med 10/20/17 20:00 Active IV ASDIRECTED Sodium Chloride 0.9% [Saline Flush] Med 10/20/17 19:56 Active 10 ml FLUSH ASDIRECTED PRN EKG 12 Lead [EK] Routine Ther 10/20/17 18:33 Ordered Medication Orders Sodium Chloride (Normal Saline) 1,000 mls @ 999 mls/hr IV ASDIRECTED [facility] Last Admin: 10/20/17 21:47 Dose: 999 mls/hr Sodium Chloride (Normal Saline) 80 mls @ 3 mls/sec IV ASDIRECTED [facility] Last Admin: 10/20/17 21:23 Dose: 3 mls/sec Iopamidol (Isovue-300 (61%)) 100 ml IV . DIRECTED [facility] Last Admin: 10/20/17 21:23 Dose: 100 ml Sodium Chloride (Saline Flush) 10 ml FLUSH ASDIRECTED PRN PRN Reason: Keep Vein Open Last Admin: 10/20/17 21:02 Dose: 10 ml Labs: Laboratory Tests 10/20/17 10/20/17 10/20/17 Range/Units 18:05 18:05 18:05 WBC 12.0 H (4.5-11.0) K/uL RBC 4.35 (3.30-5.50) M/uL Hgb 13.3 (12.0-15.0) g/dL Hct 38.8 (36.0-48.0) % MCV 89 (80-98) fL MCH 31 (27-31) pg MCHC 34 (32-36) % Plt Count 190 (150-400) K/uL Neut % (Auto) 75 H (36-66) % Lymph % (Auto) 20 L (24-44) % Highland % (Auto) 4 (2-6) % Eos % (Auto) 0 L (2-4) % Baso % (Auto) 0 (0-1) % Sodium 139 L (140-148) mmol/L Potassium 4.0 (3.6-5.2) mmol/L Chloride 100 (100-108) mmol/L Carbon Dioxide 30 (21-32) mmol/L Anion Gap 13.0 (5.0-14.0) mmol/L BUN 19 H D (7-18) mg/dL Creatinine 0.8 (0.6-1.0) mg/dL Est Cr Clr Drug Dosing 75.01 mL/min Estimated GFR (MDRD) > 60 (>60) Glucose 115 H (74-106) mg/dL Calcium 9.3 (8.5-10.1) mg/dL Total Bilirubin 0.2 (0.2-1.0) mg/dL AST 13 L (15-37) U/L ALT 18 (12-78) U/L Alkaline Phosphatase 52 (46-116) U/L Troponin I (0.000-0.056) ng/mL C-Reactive Protein 0.28 (0.0-0.3) mg/dL Total Protein 7.0 (6.4-8.2) g/dL Albumin 3.7 (3.4-5.0) g/dL Globulin 3.3 (2.3-3.5) g/dL Albumin/Globulin Ratio 1.1 L (1.2-2.2) Lipase (73-393) U/L 10/20/17 Range/Units 18:38 WBC (4.5-11.0) K/uL RBC (3.30-5.50) M/uL Hgb (12.0-15.0) g/dL Hct (36.0-48.0) % MCV (80-98) fL MCH (27-31) pg MCHC (32-36) % Plt Count (150-400) K/uL Neut % (Auto) (36-66) % Lymph % (Auto) (24-44) % Highland % (Auto) (2-6) % Eos % (Auto) (2-4) % Baso % (Auto) (0-1) % Sodium (140-148) mmol/L Potassium (3.6-5.2) mmol/L Chloride (100-108) mmol/L Carbon Dioxide (21-32) mmol/L Anion Gap (5.0-14.0) mmol/L BUN (7-18) mg/dL Creatinine (0.6-1.0) mg/dL Est Cr Clr Drug Dosing mL/min Estimated GFR (MDRD) (>60) Glucose (74-106) mg/dL Calcium (8.5-10.1) mg/dL Total Bilirubin (0.2-1.0) mg/dL AST (15-37) U/L ALT (12-78) U/L Alkaline Phosphatase (46-116) U/L Troponin I < 0.017 (0.000-0.056) ng/mL C-Reactive Protein (0.0-0.3) mg/dL Total Protein (6.4-8.2) g/dL Albumin (3.4-5.0) g/dL Globulin (2.3-3.5) g/dL Albumin/Globulin Ratio (1.2-2.2) Lipase 110 (73-393) U/L Meds: Medications Generic Name Dose Route Start Last Admin Trade Name Freq PRN Reason Stop Dose Admin Sodium Chloride 1,000 mls @ 999 mls/hr 10/20/17 19:30 10/20/17 21:47 Normal Saline IV 999 mls/hr ASDIRECTED KAYLA Administration Sodium Chloride 80 mls @ 3 mls/sec 10/20/17 20:00 10/20/17 21:23 Normal Saline IV 3 mls/sec ASDIRECTED KAYLA Administration Iopamidol 100 ml 10/20/17 20:00 10/20/17 21:23 Isovue-300 (61%) IV 100 ml . DIRECTED KAYLA Administration Sodium Chloride 10 ml 10/20/17 19:56 10/20/17 21:02 Saline Flush FLUSH 10 ml ASDIRECTED PRN Administration Keep Vein Open Discontinued Medications Generic Name Dose Route Start Last Admin Trade Name Freq PRN Reason Stop Dose Admin Hydromorphone HCl 0.5 mg 10/20/17 20:45 10/20/17 20:52 Dilaudid IVPUSH 10/20/17 20:46 0.5 mg ONETIME ONE Administration Lidocaine HCl Confirm 10/20/17 20:26 Xylocaine-Mpf 1% Administered 10/20/17 20:27 Dose 2 mls @ as directed .ROUTE .STK-MED ONE Ondansetron HCl 4 mg 10/20/17 19:24 10/20/17 20:56 Zofran IVPUSH 10/20/17 19:25 4 mg ONETIME ONE Administration - Re-Assessments/Exams Free Text/Narrative Re-Assessment/Exam: 10/20/17 22:12 pt hs a wbc of 12,000. She has pneumopertium of moderate size . The source of the leak can not be clearly determined. Departure - Departure Time of Disposition: 22:13 Disposition: Admitted As Inpatient 65 Condition: Fair Clinical Impression: Free intraperitoneal air, History of Stefano fundoplication - Discharge Information Referrals: Latisha Palumbo PA [Primary Care Provider] - Forms: ED Department Discharge Care Plan Goals: admit to Dr Mancera. - My Orders Last 24 Hours: My Active Orders 10/20/17 18:33 EKG Documentation Completion [RC] ASDIRECTED EKG 12 Lead [EK] Routine 10/20/17 18:34 Abdomen Series w Chest 1V [CR] Urgent 10/20/17 19:19 Abdomen Pelvis w Cont [CT] Stat 10/20/17 19:30 Sodium Chloride 0.9% [Normal Saline] 1,000 ml IV ASDIRECTED 10/20/17 19:56 Sodium Chloride 0.9% [Saline Flush] 10 ml FLUSH ASDIRECTED PRN 10/20/17 20:00 Iopamidol [Isovue-300 (61%)] 100 ml IV . DIRECTED Sodium Chloride 0.9% [Normal Saline] 80 ml IV ASDIRECTED - Assessment/Plan Last 24 Hours: My Active Orders 10/20/17 18:33 EKG Documentation Completion [RC] ASDIRECTED EKG 12 Lead [EK] Routine 10/20/17 18:34 Abdomen Series w Chest 1V [CR] Urgent 10/20/17 19:19 Abdomen Pelvis w Cont [CT] Stat 10/20/17 19:30 Sodium Chloride 0.9% [Normal Saline] 1,000 ml IV ASDIRECTED 10/20/17 19:56 Sodium Chloride 0.9% [Saline Flush] 10 ml FLUSH ASDIRECTED PRN 10/20/17 20:00 Iopamidol [Isovue-300 (61%)] 100 ml IV . DIRECTED Sodium Chloride 0.9% [Normal Saline] 80 ml IV ASDIRECTED
[2017-10-20] MEDS ORDERED: Ondansetron 4 MG/2 ML SDV IVPUSH ONE (19:24)
[2017-10-20] MEDS ORDERED: Sodium Chloride 0.9% 1,000 ML IV SCH (19:30)
[2017-10-20] MEDS ORDERED: Sodium Chloride 0.9% 10 ML Syringe FLUSH PRN (19:56)
[2017-10-20] MEDS ORDERED: Sodium Chloride 0.9% 80 ML IV SCH (20:00)
[2017-10-20] MEDS ORDERED: Iopamidol 612 MG/ML 100 ML Bottle IV SCH (20:00)
[2017-10-20] MEDS ORDERED: Lidocaine 1% 2 ML ONE (20:26)
[2017-10-20] MEDS ORDERED: HYDROmorphone 0.5 MG/0.5 ML Syringe IVPUSH ONE (20:45)
[2017-10-20] MEDS: Sodium Chloride 0.9% 1,000 ML IV SCH (22:00)
[2017-10-20] MEDS ORDERED: Naloxone 0.4 MG/ML SDV IVPUSH PRN (23:15)
[2017-10-20] MEDS ORDERED: Meropenem 500 MG in Sodium Chloride 0.9% 50 ML IV ONE (23:15)
[2017-10-20] MEDS ORDERED: HYDROmorphone/Normal Saline 15 MG/30 ML PCA IV PRN (23:15)
[2017-10-21] MEDS: Sodium Chloride 0.9% 1,000 ML IV SCH (02:37)
[2017-10-21] MEDS ORDERED: Rocuronium 50 MG/5 ML Vial ONE ×2 (04:56→07:09)
[2017-10-21] MEDS ORDERED: Ondansetron 4 MG/2 ML SDV ONE (04:56)
[2017-10-21] MEDS ORDERED: Glycopyrrolate 0.2 MG/ML 5 ML MDV ONE (04:56)
[2017-10-21] MEDS ORDERED: Neostigmine Methylsulfate 1 MG/ML 5 ML Syringe ONE (04:56)
[2017-10-21] MEDS ORDERED: Dexamethasone 4 MG/ML SDV ONE (04:56)
[2017-10-21] MEDS ORDERED: Succinylcholine 200 MG/10 ML MDV ONE ×2 (04:56→08:05)
[2017-10-21] MEDS ORDERED: Propofol 200 MG/20 ML SDV ONE (04:56)
[2017-10-21] MEDS ORDERED: Meropenem 500 MG SDV ONE ×2 (05:42→07:38)
[2017-10-21] MEDS ORDERED: Ropivacaine 38 ML, Dexamethasone 8 MG, EPINEPHrine 0.4 MG, Sodium Chloride 0.9% 39.6 ML NERVRT SCH ×4 (07:30)
[2017-10-21] MEDS ORDERED: Lidocaine 0.4%/D5W 2 GM/500 ML BAG IV SCH (07:30)
[2017-10-21] MEDS ORDERED: Ketamine 500 MG/5 ML MDV IV SCH ×2 (07:30→11:15)
[2017-10-21] MEDS ORDERED: Lidocaine 2% 100 MG/5 ML Syringe IVPUSH ONE (07:30)
--- NOTE | 2017-10-21 08:39 | CR ---
Abdomen Series w Chest 1V CLINICAL HISTORY: Abdominal pain FINDINGS: Lung ramirez are clear. There is no free intraperitoneal air. There is mild gaseous distenti on of the stomach. There is moderate retained feces in the colon. Small intestinal gas pattern is non acute. There are surgical clips in the epigastric region and right upper quadrant. IMPRESSION: Moderate retained stool Nonacute intestinal gas pattern Previous epigastric and right upper quadrant surgery
[2017-10-21] MEDS ORDERED: Scopolamine 1.5 MG Transdermal Patch ONE (08:40)
--- NOTE | 2017-10-21 09:13 | CR ---
CHEST: AP portable CLINICAL HISTORY:TLS C COMPARISON:10/20/2017 FINDINGS: There has been interval placement of a right jugular catheter. The tip is in the superior vena cava atrial junction. Heart size and pulmonary vascular normal. Lung ramirez are clear. There is a surgical drain in the left upper quadrant. IMPRESSION: Articular catheters in good position. Lung ramirez are clear Left upper quadrant abdominal drain
[2017-10-21] MEDS ORDERED: diphenhydrAMINE 50 MG/ML SDV IVPUSH PRN (11:00)
[2017-10-21] MEDS ORDERED: hydrOXYzine HCl 100 MG/2 ML SDV IM PRN (11:00)
[2017-10-21] MEDS ORDERED: Albuterol/Ipratropium 3.0-0.5 MG/3 ML Neb Soln INH SCH (11:00)
[2017-10-21] MEDS ORDERED: Labetalol 20 MG/4 ML Syringe IVPUSH PRN (11:00)
[2017-10-21] MEDS ORDERED: Ondansetron 4 MG/2 ML SDV IVPUSH PRN (11:00)
[2017-10-21] MEDS ORDERED: Metoclopramide 10 MG/2 ML SDV IVPUSH PRN (11:00)
[2017-10-21] MEDS ORDERED: Pantoprazole 40 MG Vial IVPUSH SCH (12:00)
[2017-10-21] MEDS: cefOXitin 2 GM in Sodium Chloride 0.9% 50 ML IV SCH ×3 (12:06→22:40)
[2017-10-21] MEDS: Dextrose 5%-Lactated Ringers 1,000 ML IV SCH ×2 (12:10→22:39)
[2017-10-21] MEDS ORDERED: Naloxone 0.4 MG/ML SDV IVPUSH PRN (15:09)
[2017-10-21] MEDS: Albuterol/Ipratropium 3.0-0.5 MG/3 ML Neb Soln INH PRN (15:20)
[2017-10-21] MEDS: Gabapentin 250 MG/5 ML Solution ML 470 ML Bottle PO SCH ×2 (15:44→22:06)
[2017-10-21] MEDS: Pantoprazole 40 MG Vial IVPUSH SCH (15:44)
[2017-10-21] MEDS: Heparin Sodium 5,000 Units/ML Vial SUBCUT SCH (15:44)
[2017-10-21] MEDS: Acetaminophen Soln 650 MG/20.3 ML UD Cup PO SCH ×2 (15:45→20:12)
[2017-10-21] MEDS ORDERED: MVI, Adult with Vitamin K 10 ML, Thiamine 100 MG, Chromium/Copper/Mang/Selen/Zn 1 ML in... IV SCH ×4 (16:00)
[2017-10-21] MEDS ORDERED: Lactated Ringers 500 ML IV ONE (16:30)
[2017-10-21] MEDS ORDERED: Acetaminophen 1,000 MG in Premix Bag 1 BAG IV ONE (20:10)
[2017-10-21] MEDS ORDERED: Haloperidol Lactate 5 MG/ML SDV IVPUSH PRN (20:10)
[2017-10-21] MEDS: Albuterol/Ipratropium 3.0-0.5 MG/3 ML Neb Soln INH SCH (20:46)
[2017-10-22] MEDS: Acetaminophen Soln 650 MG/20.3 ML UD Cup PO SCH ×4 (02:09→19:34)
[2017-10-22] MEDS: Albuterol/Ipratropium 3.0-0.5 MG/3 ML Neb Soln INH SCH ×4 (02:55→20:59)
[2017-10-22] MEDS ORDERED: Iohexol 647 MG/ML 50 ML SDV PO PRN (04:00)
[2017-10-22] MEDS: Heparin Sodium 5,000 Units/ML Vial SUBCUT SCH ×2 (04:30→15:30)
[2017-10-22] MEDS: cefOXitin 2 GM in Sodium Chloride 0.9% 50 ML IV SCH ×2 (04:31→10:05)
[2017-10-22] MEDS: Dextrose 5%-Lactated Ringers 1,000 ML IV SCH (05:36)
[2017-10-22] MEDS ORDERED: Lactated Ringers 500 ML IV ONE ×3 (06:45→16:15)
[2017-10-22] MEDS: Celecoxib 200 MG Cap PO SCH (10:04)
[2017-10-22] MEDS: SCOPOLAMINE PATCH CHECK TOP SCH (10:05)
[2017-10-22] MEDS: Gabapentin 250 MG/5 ML Solution ML 470 ML Bottle PO SCH ×3 (10:05→20:59)
[2017-10-22] MEDS: Magnesium Sulfate/Water 2 GM in Premix Bag 1 BAG IV SCH ×3 (10:05→21:02)
[2017-10-22] MEDS: Potassium Phosphates 25 MMOLE in Sodium Chloride 0.9% 100 ML IV SCH ×3 (10:59→18:36)
[2017-10-22] MEDS: Pantoprazole 40 MG Vial IVPUSH SCH (15:30)
[2017-10-22] MEDS: MVI, Adult with Vitamin K 10 ML, Chromium/Copper/Mang/Selen/Zn 1 ML in Dextrose 5%-Lact... IV SCH ×3 (18:35)
[2017-10-23] MEDS: Acetaminophen Soln 650 MG/20.3 ML UD Cup PO SCH ×4 (01:31→19:53)
[2017-10-23] MEDS: Albuterol/Ipratropium 3.0-0.5 MG/3 ML Neb Soln INH SCH ×4 (03:26→21:18)
[2017-10-23] MEDS: Heparin Sodium 5,000 Units/ML Vial SUBCUT SCH ×2 (04:21→15:43)
[2017-10-23] MEDS: Magnesium Sulfate/Water 2 GM in Premix Bag 1 BAG IV SCH ×4 (04:21→21:19)
[2017-10-23] MEDS: Dextrose 5%-Lactated Ringers 1,000 ML IV SCH (05:40)
[2017-10-23] MEDS ORDERED: Meropenem 500 MG SDV ONE (06:39)
[2017-10-23] MEDS ORDERED: Lidocaine 1% with EPINEPHrine 1:100,000 50 ML MDV ONE (06:39)
[2017-10-23] MEDS ORDERED: Bupivacaine 0.5% 50 ML MDV ONE (06:39)
[2017-10-23] MEDS: Albuterol/Ipratropium 3.0-0.5 MG/3 ML Neb Soln INH PRN (06:53)
[2017-10-23] MEDS ORDERED: Ropivacaine 38 ML, Dexamethasone 8 MG, EPINEPHrine 0.4 MG, Sodium Chloride 0.9% 39.6 ML NERVRT ONE ×4 (08:00)
[2017-10-23] MEDS ORDERED: Propofol 200 MG/20 ML SDV ONE ×2 (08:16)
[2017-10-23] MEDS ORDERED: Cyanocobalamin (Vitamin B12) 1,000 MCG/ML SDV IM ONE (09:00)
[2017-10-23] MEDS: Gabapentin 250 MG/5 ML Solution ML 470 ML Bottle PO SCH ×3 (10:22→21:17)
[2017-10-23] MEDS: Celecoxib 200 MG Cap PO SCH (10:23)
[2017-10-23] MEDS: SCOPOLAMINE PATCH CHECK TOP SCH (10:23)
[2017-10-23] MEDS: MVI, Adult with Vitamin K 10 ML, Chromium/Copper/Mang/Selen/Zn 1 ML in Dextrose 5%-Lact... IV SCH ×3 (15:51)
[2017-10-23] MEDS: Pantoprazole 40 MG Vial IVPUSH SCH (15:51)
[2017-10-23] MEDS ORDERED: Tamsulosin 0.4 MG Cap.ER PO ONE (17:00)
[2017-10-23] MEDS: Tamsulosin 0.4 MG Cap.ER PO SCH (21:17)
[2017-10-24] MEDS: Acetaminophen Soln 650 MG/20.3 ML UD Cup PO SCH ×4 (01:19→19:23)
[2017-10-24] MEDS: Dextrose 5%-Lactated Ringers 1,000 ML IV SCH ×2 (02:08→12:10)
[2017-10-24] MEDS: Albuterol/Ipratropium 3.0-0.5 MG/3 ML Neb Soln INH SCH ×4 (02:17→20:03)
[2017-10-24] MEDS: Magnesium Sulfate/Water 2 GM in Premix Bag 1 BAG IV SCH ×4 (04:06→22:50)
[2017-10-24] MEDS: Heparin Sodium 5,000 Units/ML Vial SUBCUT SCH ×2 (04:06→15:42)
[2017-10-24] MEDS: Celecoxib 200 MG Cap PO SCH (08:17)
[2017-10-24] MEDS: Gabapentin 250 MG/5 ML Solution ML 470 ML Bottle PO SCH ×3 (08:22→20:02)
[2017-10-24] MEDS: Lisinopril 20 MG Tab PO SCH (08:38)
[2017-10-24] MEDS: Hydrochlorothiazide 25 MG Tab PO SCH (08:38)
--- NOTE | 2017-10-24 08:42 | CR ---
UGI wo KUB HISTORY: Evaluate Sathish-en-Y. COMPARISON: CT scan 10/20/2017. FINDINGS: Postop Sathish-en-Y procedure. Small amount of contrast within the gastric remnant. Proximal s mall bowel demonstrates no significant obstruction. There is no extravasation of contrast.
--- NOTE | 2017-10-24 09:36 | PCM.SN ---
- Free Text/Narrative Note: Roxi Patterson is a 42 y/o female POD3 s/p exploratory laparotomy with total gastrectomy and chyna-en-y revision 2/2 gastroparesis causing intraperitoneal free air, and POD1 s/p delayed primary closure. Physical Exam: some bilateral lower extremity pitting edema; otherwise within normal limits with regular heart rate and rhythm, normal bowel sounds without tenderness, and clear lungs to auscultation bilaterally Pain: TAP blocks were used during both procedures and her pain has been managed remarkably well. She hasn't really needed her LEAD APPLIER, so we will discontinue that and offer oral dilaudid if needed. Respiratory: satting in 90s overnight with oxygen. Continue to encourage use of incentive spirometry. Encourage ambulation as able. : patient unable to void yesterday evening. Bladder scan revealed retention of 900 mL, thus Samano catheter was placed and patient was initiated on Flomax. Continue Flomax. Keep Samano in place; likely pull it tomorrow (10/25). Diet: Tolerating liquid diet well. Sergior jane to meet with her and Opal. IV access: triple lumen central venous catheter remains in place Chronic issues: resume home dose of lisinopril and hydrochlorothiazide.
[2017-10-24] MEDS: HYDROmorphone 2 MG Tab PO PRN ×3 (10:23→20:04)
--- NOTE | 2017-10-24 10:28 | PN ---
DATE OF SERVICE: 10/22/2017 The patient has been afebrile with stable vital signs. She was somewhat confused and agitated last night, but this has improved with stopping the lidocaine. She also received a single dose of Haldol. Otherwise, upper GI x-ray looked good this morning and we will begin a step-2 diet with no solids today. Her labs show low magnesium, phosphate, and potassium and these will be supplemented today. Otherwise, plan is to proceed with a delayed primary closure, along with a tap block tomorrow morning. Ubaldo Mancera MD /[id number] MTDD
--- NOTE | 2017-10-24 10:55 | PN ---
DATE OF SERVICE: 10/23/2017 The patient has been afebrile with stable vital signs. Oxygenation has been slightly marginal. We did switch over to Acapella, which may be helpful in terms of pulmonary toilet. Otherwise, we will need to maximize activity. Otherwise, she underwent a delayed primary closure of abdominal wall incision today. Samano catheter has come out. Urine output has now been satisfactory. We will recheck some labs tomorrow and restart a step-2 diet without solids and have Dietary begin counseling tomorrow morning. Ubaldo Mancera MD /[id number]
--- NOTE | 2017-10-24 11:52 | OR ---
DATE OF PROCEDURE: 10/23/2017 PREOPERATIVE DIAGNOSIS: Open abdominal incision. POSTOPERATIVE DIAGNOSIS: Open abdominal incision. OPERATIVE PROCEDURE: Delayed primary closure of open abdominal incision. ANESTHESIA: IV sedation plus local. INDICATION FOR PROCEDURE: This 42-year-old is status post total gastrectomy done in an emergent manner. The skin and subcutaneous tissue were felt to be at high risk for wound infection, therefore, primary closure was undertaken and therefore packed open for a planned delayed primary closure at this time. Potential risks including bleeding and infection were reviewed with the patient and mother and they wish to proceed. DETAILS OF PROCEDURE: The patient was taken to the operating room and placed in a supine position. Initially, the operative dressing was taken down and then bilateral subcostal transversus abdominis plane blocks using the standard solution were placed using ongoing ultrasound surveillance. Following this, the abdomen was prepped and draped, and the incision was anesthetized with 1% lidocaine mixed with Marcaine. The incision was then irrigated with antibiotic-containing saline solution. A 10-Estonian round Titus-Michel drain was then placed through a stab wound beneath the incision and draped across the bed of the incision which was then closed with 2 layers of 3-0 Vicryl stitch deep and kulwinder for the skin. Dressing was applied. The patient was taken to the recovery room in a satisfactory condition. Ubaldo Mancera MD /[id number]
[2017-10-24] MEDS ORDERED: Furosemide 40 MG/4 ML VIAL IVPUSH ONE (14:30)
--- NOTE | 2017-10-24 14:54 | PCM.CONS ---
H&P History of Present Illness - General Date of Service: 10/24/17 Admit Problem/Dx: Admission Diagnosis/Problem Admission Diagnosis/Problem Abdominal pain Source of Information: Patient, Family, RN History Limitations: Reports: No Limitations - History of Present Illness Initial Comments - Free Text/Narative: Roxi was admitted on October 20 after she presented with acute abdominal pain and was found to have pneumomediastinum. She was admitted to the hospital with concern for perforation. She went to the operating room the morning after admission and had surgical repair of a intestinal perforation. I was asked to see her today by Dr. Mancera regarding hypoxia and edema. Patient reports shortness of breath at rest but even more so with any activity. She was noted to desaturate into the 70s with activity earlier this afternoon. She does not report any chest pain. Her abdominal pain has been well-controlled. She has noticed progressive swelling in her hands, her arms as well as her legs. Review of intake and output suggest that she's more than 10 L on the positive side since admission. There is no recent weight. She does have orthopnea and feels more comfortable sitting up in the chair. She has not had any fevers. Abdominal Pain Score (Numeric/FACES): 5 - Related Data Allergies/Adverse Reactions: Allergies Allergy/AdvReac Type Severity Reaction Status Date / Time omeprazole AdvReac Intermediate Dizziness Verified 10/20/17 18:11 Home Medications: Home Meds Cholecalciferol (Vitamin D3) [Vitamin D3] 1,000 unit PO DAILY 06/12/13 [History] Hydrochlorothiazide/Lisinopril [Lisinopril-HCTZ 20-25 MG] 1 tab PO DAILY [History] Past Medical History HEENT History: Reports: Other (See Below) Other HEENT History: heavy wax Cardiovascular History: Reports: Hypertension Respiratory History: Reports: None Gastrointestinal History: Reports: GERD, Hiatal Hernia Other Gastrointestinal History: barretts esophagus Genitourinary History: Reports: None Musculoskeletal History: Reports: Back Pain, Chronic, Neck Pain, Chronic, Other (See Below) Other Musculoskeletal History: scoliosis, kyphosis. bulging lumbar disk. bursitis left hip. bilateral torn labrum Neurological History: Reports: Headaches, Chronic, Other (See Below) Other Neuro History: chiari malformation Psychiatric History: Reports: Developmental Delay, Learning Disability Other Psychiatric History: learning disabled. Endocrine/Metabolic History: Reports: Obesity/BMI 30+ - Infectious Disease History Infectious Disease History: Reports: Chicken Pox - Past Surgical History HEENT Surgical History: Reports: Adenoidectomy, LASIK, Myringotomy w Tube(s), Tonsillectomy GI Surgical History: Reports: Appendectomy, Cholecystectomy, Colonoscopy, EGD, Stefano Fundoplication Female Surgical History: Reports: Hysterectomy Neurological Surgical History: Reports: C-Spine Dermatological Surgical History: Reports: Other (See Below) Social & Family History - Family History Family Medical History: Noncontributory - Tobacco Use Smoking Status *Q: Never Smoker Second Hand Smoke Exposure: No - Caffeine Use Caffeine Use: Reports: None - Alcohol Use Days Per Week of Alcohol Use: 0 - Recreational Drug Use Recreational Drug Use: No H&P Review of Systems - Review of Systems: Review Of Systems: See Below Free Text/Narrative: A complete 12 point review of systems was obtained. Pertinent positives and negatives are noted in the history of present illness. All other systems were reviewed and were negative except as noted. Exam - Exam Exam: See Below - Vital Signs Vital Signs: Last Vital Signs Temp 37.2 C 10/24/17 11:15 Pulse 100 10/24/17 11:15 Resp 20 10/24/17 11:15 BP 111/75 10/24/17 14:42 Pulse Ox 94 L 10/24/17 14:03 Weight: 77.3 kg - Exam Quality Assessment: Supplemental Oxygen General: Alert, Oriented, Cooperative. No: Mild Distress HEENT: Conjunctiva Clear, Mucosa Moist & [place]. No: Scleral Icterus Neck: Supple, Trachea Midline. No: Lymphadenopathy Lungs: Normal Respiratory Effort, Decreased Breath Sounds (both bases), Crackles (both bases) Cardiovascular: Regular Rhythm, Tachycardia GI/Abdominal Exam: Soft, No Distention Extremities: Pedal Edema (pitting edema both lower legs with some edema extending proximally to the posterior thigh), Other (pitting edema of hands and forearms bilaterally). No: Increased Warmth Skin: Warm, Dry Neuro Extensive - Mental Status: Alert, Oriented x3, Nl Response to Commands Neuro Extensive - Motor, Sensory, Reflexes: No: Dysarthria, Abnormal Motor, Tremor Psychiatric: Alert, Normal Affect - Patient Data Lab Results Last 24 hrs: Laboratory Results - last 24 hr 10/24/17 Range/Units 04:20 Sodium 145 (140-148) mmol/L Potassium 4.0 (3.6-5.2) mmol/L Chloride 109 H (100-108) mmol/L Carbon Dioxide 28 (21-32) mmol/L Anion Gap 12.0 (5.0-14.0) mmol/L BUN 5 L (7-18) mg/dL Creatinine 0.7 (0.6-1.0) mg/dL Est Cr Clr Drug Dosing 85.69 mL/min Estimated GFR (MDRD) > 60 (>60) Glucose 108 H (74-106) mg/dL Calcium 7.7 L (8.5-10.1) mg/dL Phosphorus 2.7 (2.5-4.9) mg/dL Result Diagrams: 10/22/17 04:00 10/24/17 04:20 Imaging Impressions Last 24 hrs: chest x-ray - images personally reviewed - there is a small left-sided pleural effusion and pulmonary vascular congestion. No definite infiltrate or mass. Heart size appears normal. Consult PN Assessment/Plan POD#: 3 Procedures: Procedures ASSAY ALKALINE PHOSPHATASE (06/14/13) ASSAY OF MAGNESIUM (07/02/17) BILIRUBIN TOTAL (06/14/13) COMP SCREEN MAMMOGRAM ADD-ON (07/23/15) COMPLETE CBC AUTOMATED (06/14/13) COMPLETE CBC W/AUTO DIFF WBC (07/03/17) COMPREHEN METABOLIC PANEL (02/09/17) CT HEAD/BRAIN W/O DYE (02/09/17) CULTURE SCREEN ONLY (07/02/17) EGD BIOPSY SINGLE/MULTIPLE (07/02/17) EGD REMOVE LESION SNARE (07/02/17) ELECTRICAL STIMULATION (06/28/17) EMERGENCY DEPT VISIT (07/03/17) EMERGENCY DEPT VISIT (02/09/17) EMERGENCY DEPT VISIT (02/09/17) EXTREMITY STUDY (01/28/17) GAIT TRAINING THERAPY (02/08/17) INJECT TRIGGER POINTS 3/> (03/02/17) LAPAROSCOPIC CHOLECYSTECTOMY (06/14/13) LIPID PANEL (03/02/14) MANUAL THERAPY 1/> REGIONS (06/28/17) MEASURE BLOOD OXYGEN LEVEL (08/22/17) METABOLIC PANEL TOTAL CA (07/02/17) MRI BRAIN STEM W/O DYE (02/11/17) MRI CHEST SPINE W/O & W/DYE (10/17/17) MRI CHEST SPINE W/O DYE (03/09/17) MRI JNT OF LWR EXTRE W/O DYE (09/30/16) MRI LOWER EXTREMITY W/O DYE (08/17/17) MRI LUMBAR SPINE W/O & W/DYE (10/17/17) MRI LUMBAR SPINE W/O DYE (09/30/16) MRI NECK SPINE W/O & W/DYE (10/17/17) MRI NECK SPINE W/O DYE (02/17/17) NEUROMUSCULAR REEDUCATION (05/12/17) NJX INTERLAMINAR LMBR/SAC (03/02/17) PT EVAL LOW COMPLEX 20 MIN (10/13/16) PT EVAL MOD COMPLEX 30 MIN (04/14/17) ROUTINE VENIPUNCTURE (07/03/17) THERAPEUTIC EXERCISES (06/28/17) TISSUE EXAM BY PATHOLOGIST (08/22/17) TISSUE EXAM BY PATHOLOGIST (07/02/17) TISSUE EXAM BY PATHOLOGIST (06/14/13) TISSUE EXAM BY PATHOLOGIST (06/12/13) ULTRASOUND THERAPY (06/28/17) US EXAM ABDOM COMPLETE (06/13/13) VITAMIN D 25 HYDROXY (07/02/17) X-RAY BEND ONLY L-S SPINE (10/18/16) (1) Hypoxia SNOMED Code(s): 030330485 Code(s): R09.02 - HYPOXEMIA Current Visit: Yes Problem List Initiated/Reviewed/Updated: Yes My Orders Last 24 Hours: My Active Orders 10/24/17 14:51 Weight Daily [Height and Weight] [RC] DAILY Convert IV to Saline Lock [OM.PC] Routine 10/24/17 14:53 Chest 1V Frontal [CR] Urgent 10/24/17 23:00 Furosemide [Lasix] 40 mg IVPUSH Q8H 10/25/17 05:00 BASIC METABOLIC PANEL,BMP [CHEM] Timed Plan: ASSESSMENT AND PLAN - Hypoxia - suspect volume overload based on examination and intake and output imbalance. Peripheral edema of both upper and lower extremities as well as crackles at both lung bases. Intake/output balance suggest that she is about 10 L on the positive side since admission. chest x-ray shows pulmonary vascular congestion and a small left-sided pleural effusion. She is currently receiving her first dose of furosemide. there is no evidence to suggest pulmonary infection at this time. -Furosemide every 8 hours for 2 more doses, reassess volume in the morning -saline lock IV -Continue Samano catheter for intake and output monitoring -Daily weights Gastric perforation status post surgical repair with gastrectomy and Sathish-en-Y reconfiguration - pain well-controlled on postoperatively. No bowel movement as of yet. -Postoperative cares per surgical team Fei Funes M.D. Requesting Provider: Dr. Mancera Date Consult Requested: 10/24/17 Reason for Consult: hypoxia Patient History Reviewed: Yes Admission H&P Reviewed: No (not available) Notified Requestor: No Time Spent (in minutes): 50
[2017-10-24] MEDS: Pantoprazole 40 MG Delayed-Release Granules 1 Packet PO SCH (15:42)
[2017-10-24] MEDS: Tamsulosin 0.4 MG Cap.ER PO SCH (20:03)
[2017-10-24] MEDS: Furosemide 40 MG/4 ML VIAL IVPUSH SCH (22:50)
[2017-10-25] MEDS: Acetaminophen Soln 650 MG/20.3 ML UD Cup PO SCH ×4 (01:06→19:49)
[2017-10-25] MEDS: Magnesium Sulfate/Water 2 GM in Premix Bag 1 BAG IV SCH (03:03)
[2017-10-25] MEDS: Heparin Sodium 5,000 Units/ML Vial SUBCUT SCH ×2 (03:03→15:15)
[2017-10-25] MEDS: Albuterol/Ipratropium 3.0-0.5 MG/3 ML Neb Soln INH SCH ×4 (03:03→21:29)
[2017-10-25] MEDS: Furosemide 40 MG/4 ML VIAL IVPUSH SCH (06:11)
[2017-10-25] MEDS: Celecoxib 200 MG Cap PO SCH (07:39)
[2017-10-25] MEDS: HYDROmorphone 2 MG Tab PO PRN (07:39)
--- NOTE | 2017-10-25 08:32 | PN ---
DATE OF SERVICE: 10/25/2017 SUBJECTIVE: Roxi is postop day #5. Roxi had some shortness of breath yesterday secondary to fluid overload. She had a hospitalist consult; Fei Funes M.D.; ordered Lasix. Her symptoms have improved due to the Lasix. Her Samano catheter remains to be in. She had a total out yesterday of 8150, and this morning, her Samano was emptied again of 1450. She states she is less short of breath. Oral intake 1610. IHSAN drains have put out 135 and 10 mL respectively of a light pink serosanguineous drainage. Roxi is sitting up in the chair. States her pain is controlled; has no questions or concerns. Mom, Opal, is concerned about her not having a bowel movement yet, and has a history of constipation. REVIEW OF SYSTEMS: Remainder of review of systems is negative for any pertinent positives and negatives. OBJECTIVE: GENERAL: Roxi is a 42-year-old female, alert, orientated, color pale. VITAL SIGNS: TPR 99.1, 89, 18. Blood pressure 118/82. HEENT: Negative. NECK: Supple. HEART: Regular rate and rhythm. LUNGS: Clear. ABDOMEN: Dressings dry and intact. Abdominal binder is on. EXTREMITIES: With trace peripheral edema. ASSESSMENT: 1. Insertion of right triple-lumen catheter. 2. Exploratory laparotomy with takedown of Stefano fundoplication, total gastrectomy with Sathish-en-Y gastrojejunostomy and left salpingo-oophorectomy for limited peripheral vein access, gastric perforation associated with gastric distortion secondary to gastroparesis and recurrent painful left ovarian cyst. Date of surgery 10/20/2017. Surgeon, Ubaldo Mancera M.D. 3. Fluid overload resulting in dyspnea and hypoxia, resolved. PLAN: 1. Check CBC, CMP, magnesium and phosphorus in the a.m. 2. Continue dietary teaching. 3. Senokot-S 2 b.i.d. p.o. 4. Samano catheter removal to be ordered per Fei Funes M.D. 5. Good pulmonary toilet. 6. We will evaluate p.r.n. or in the a.m. Yamilex Clinton PA-C /[id number]
--- NOTE | 2017-10-25 08:46 | CR ---
Chest 1V Frontal HISTORY: Hypoxia COMPARISON: 10/21/2017 FINDINGS: Right-sided central line distal tip overlies the superior vena cava. Limited inspiration. S mall left-sided pleural effusion. Obscured contour of the left hemidiaphragm compatible with left celestino g base atelectasis or infiltrate. The mid and upper lung zones are clear. No acute congestive change. Impression: Limited inspiration with left-sided pleural effusion and adjacent atelectasis or infiltrate.
[2017-10-25] MEDS ORDERED: Ondansetron 4 MG Tab.DIS PO PRN (09:34)
[2017-10-25] MEDS: Gabapentin 250 MG/5 ML Solution ML 470 ML Bottle PO SCH ×3 (10:12→21:33)
[2017-10-25] MEDS: Hydrochlorothiazide 25 MG Tab PO SCH (10:12)
[2017-10-25] MEDS: Lisinopril 20 MG Tab PO SCH (10:13)
--- NOTE | 2017-10-25 10:38 | PCM.CONSN ---
- General Info Date of Service: 10/25/17 Functional Status: Reports: Pain Controlled, Tolerating Diet - Review of Systems General: Denies: Fever Pulmonary: Reports: Shortness of Breath Cardiovascular: Reports: Edema Systems Review Comment:: no acute events overnight. She feels less short of breath and her edema has improved. Excellent diuresis with more than 5 L removed. weight is still up 10 pounds from admission. Still requiring supplemental oxygen. - Patient Data Vitals - Most Recent: Last Vital Signs Temp 37.3 C 10/25/17 07:21 Pulse 94 10/25/17 09:00 Resp 18 10/25/17 07:21 BP 118/82 10/25/17 10:13 Pulse Ox 88 L 10/25/17 09:00 Weight - Most Recent: 81.828 kg I&O - Last 24 Hours: Intake & Output 10/24/17 10/25/17 10/25/17 22:59 06:59 14:59 Intake Total 1695 240 330 Output Total 3488 4810 1450 Balance -1790 -4570 -1120 Lab Results Last 24 Hours: Laboratory Results - last 24 hr 10/25/17 Range/Units 04:10 Sodium 146 (140-148) mmol/L Potassium 4.0 (3.6-5.2) mmol/L Chloride 106 (100-108) mmol/L Carbon Dioxide 36 H (21-32) mmol/L Anion Gap 8.0 (5.0-14.0) mmol/L BUN 6 L (7-18) mg/dL Creatinine 0.7 (0.6-1.0) mg/dL Est Cr Clr Drug Dosing 85.69 mL/min Estimated GFR (MDRD) > 60 (>60) Glucose 84 (74-106) mg/dL Calcium 8.0 L (8.5-10.1) mg/dL Med Orders - Current: Current Medications Acetaminophen (Tylenol) 650 mg PO Q6H [facility] Last Admin: 10/25/17 07:39 Dose: 650 mg Albuterol/Ipratropium (Duoneb 3.0-0.5 Mg/3 Ml) 3 ml INH ASDIRECTED PRN PRN Reason: BREATHING Last Admin: 10/23/17 06:53 Dose: 3 ml Albuterol/Ipratropium (Duoneb 3.0-0.5 Mg/3 Ml) 3 ml INH Q6H [facility] Last Admin: 10/25/17 08:59 Dose: 3 ml Celecoxib (Celebrex) 200 mg PO DAILY@0800 [facility] Last Admin: 10/25/17 07:39 Dose: 200 mg Diphenhydramine HCl (Benadryl) 25 - 50 mg IVPUSH Q4H PRN PRN Reason: ITCHING Gabapentin (Neurontin) 300 mg PO TID [facility] Last Admin: 10/25/17 10:12 Dose: 300 mg Haloperidol Lactate (Haldol) 2.5 mg IVPUSH Q1H PRN PRN Reason: Agitation Last Admin: 10/21/17 20:20 Dose: 2.5 mg Heparin Sodium (Porcine) (Heparin Sodium) 5,000 units SUBCUT Q12H [facility] Last Admin: 10/25/17 03:03 Dose: 5,000 units Heparin Sodium (Porcine) (Heparin Lock Flush 100 Units/Ml) 500 units FLUSH ASDIRECTED PRN PRN Reason: Keep Vein Open Last Admin: 10/25/17 06:11 Dose: 500 units Hydrochlorothiazide (Hydrochlorothiazide) 25 mg PO DAILY [facility] Last Admin: 10/25/17 10:12 Dose: 25 mg Hydromorphone HCl (Dilaudid) 2 - 4 mg PO Q4H PRN PRN Reason: Pain Last Admin: 10/25/17 07:39 Dose: 4 mg Hydroxyzine HCl (Vistaril) 75 - 100 mg IM Q4H PRN PRN Reason: pain Labetalol HCl (Normodyne) 5 - 15 mg IVPUSH Q1H PRN PRN Reason: SBP over 160 OR DBP over 95 Lisinopril (Prinivil) 20 mg PO DAILY [facility] Last Admin: 10/25/17 10:13 Dose: 20 mg Metoclopramide HCl (Reglan) 10 mg IVPUSH Q6H PRN PRN Reason: NAUSEA NOT CONTROL BY ZOFRAN Last Admin: 10/21/17 17:02 Dose: 10 mg Naloxone HCl (Narcan) 0.1 mg IVPUSH Q2M PRN PRN Reason: Respiratory Distress Ondansetron HCl (Zofran) 4 mg IVPUSH Q4H PRN PRN Reason: Nausea/Vomiting Last Admin: 10/21/17 14:24 Dose: 4 mg Ondansetron HCl (Zofran Odt) 4 mg PO Q4H PRN PRN Reason: Nausea/Vomiting Last Admin: 10/25/17 09:53 Dose: 4 mg Pantoprazole Sodium (Protonix Granules) 40 mg PO Q24H [facility] Last Admin: 10/24/17 15:42 Dose: 40 mg Senna/Docusate Sodium (Senna Plus) 2 tab PO BID [facility] Last Admin: 10/25/17 10:13 Dose: 2 tab Tamsulosin HCl (Flomax) 0.4 mg PO BEDTIME [facility] Last Admin: 10/24/17 20:03 Dose: 0.4 mg Discontinued Medications Albuterol/Ipratropium (Duoneb 3.0-0.5 Mg/3 Ml) 3 ml INH Q6H [facility] Last Admin: 10/21/17 14:36 Dose: Not Given Bupivacaine HCl (Marcaine 0.5%) Confirm Administered Dose 50 ml .ROUTE .STK-MED ONE Stop: 10/23/17 06:40 Last Admin: 10/23/17 08:23 Dose: 12 ml Ropivacaine 38 ml/Dexamethasone 8 mg/Epinephrine HCl 0.4 mg/ Sodium Chloride 39.6 ml 0 ml NERVRT ASDIRECTED [facility] Last Admin: 10/21/17 07:23 Dose: 80 syringe Ropivacaine 38 ml/Dexamethasone 8 mg/Epinephrine HCl 0.4 mg/ Sodium Chloride 39.6 ml 0 ml NERVRT ONETIME ONE Stop: 10/23/17 08:01 Last Admin: 10/23/17 08:17 Dose: 100 syringe Cyanocobalamin (Vitamin B12) 1,000 mcg IM ONETIME ONE Stop: 10/23/17 09:01 Last Admin: 10/23/17 10:22 Dose: 1,000 mcg Dexamethasone (Dexamethasone) Confirm Administered Dose 4 mg .ROUTE .STK-MED ONE Stop: 10/21/17 04:57 Fentanyl Citrate (Fentanyl) Confirm Administered Dose 500 mcg .ROUTE .STK-MED ONE Stop: 10/21/17 04:57 Furosemide (Lasix) 40 mg IVPUSH ONETIME ONE Stop: 10/24/17 14:31 Last Admin: 10/24/17 14:42 Dose: 40 mg Furosemide (Lasix) 40 mg IVPUSH Q8H [facility] Stop: 10/25/17 07:01 Last Admin: 10/25/17 06:11 Dose: 40 mg Glycopyrrolate (Robinul) Confirm Administered Dose 1 mg .ROUTE .K-MED ONE Stop: 10/21/17 04:57 Heparin Sodium (Porcine) (Heparin Lock Flush 100 Units/Ml) Confirm Administered Dose 1,000 units .ROUTE .STK-MED ONE Stop: 10/21/17 05:05 Last Admin: 10/21/17 06:38 Dose: 1,000 units Heparin Sodium (Porcine) (Heparin Lock Flush 100 Units/Ml) Confirm Administered Dose 500 units .ROUTE .K-MED ONE Stop: 10/22/17 04:29 Last Admin: 10/22/17 04:42 Dose: Not Given Hydromorphone HCl (Dilaudid) 0.5 mg IVPUSH ONETIME ONE Stop: 10/20/17 20:46 Last Admin: 10/20/17 20:52 Dose: 0.5 mg Hydromorphone HCl (Dilaudid Environment Artist 15 Mg In Ns 30 Ml) 0 mg IV ASDIRECTED PRN; Protocol PRN Reason: Pain Last Admin: 10/20/17 23:53 Dose: 15 mg Sodium Chloride (Normal Saline) 1,000 mls @ 999 mls/hr IV ASDIRECTED [facility] Last Admin: 10/20/17 21:47 Dose: 999 mls/hr Sodium Chloride (Normal Saline) 80 mls @ 3 mls/sec IV ASDIRECTED [facility] Last Admin: 10/20/17 21:23 Dose: 3 mls/sec Lidocaine HCl (Xylocaine-Mpf 1%) Confirm Administered Dose 2 mls @ as directed .ROUTE .STK-MED ONE Stop: 10/20/17 20:27 Meropenem 500 mg/ Sodium (Chloride) 50 mls @ 100 mls/hr IV ONETIME ONE Stop: 10/20/17 23:44 Last Admin: 10/20/17 23:58 Dose: 100 mls/hr Sodium Chloride (Normal Saline) 1,000 mls @ 300 mls/hr IV ASDIRECTED [facility] Last Admin: 10/21/17 02:37 Dose: 300 mls/hr Lidocaine HCl/Dextrose (Lidocaine 2 Gm/D5w 500 Ml) 2 gm in 500 mls @ 22.5 mls/ hr IV .[id number] [facility] PRN Reason: 1.5 MG/MIN Stop: 10/22/17 09:00 Last Admin: 10/21/17 12:09 Dose: 1.5 mg/min, 22.5 mls/hr Dextrose/Lactated Ringer's (Dextrose 5%-Lactated Ringers) 1,000 mls @ 175 mls/ hr IV ASDIRECTED [facility] Stop: 10/22/17 13:59 Last Admin: 10/22/17 05:36 Dose: 175 mls/hr Multivitamins/Minerals 10 ml/Thiamine HCl 100 mg/ Chromium/Copper/Manganese/ Seleni/Zn 1 ml/ Dextrose/Lactated Ringer's 1,012 mls @ 174.826 mls/hr IV DAILY@ 1600 [facility] Last Admin: 10/21/17 16:09 Dose: 174.826 mls/hr Cefoxitin Sodium 2 gm/ Sodium (Chloride) 50 mls @ 100 mls/hr IV Q6H [facility] Stop: 10/22/17 11:29 Last Admin: 10/22/17 10:05 Dose: 100 mls/hr Lactated Ringer's (Ringers, Lactated) 500 mls @ 500 mls/hr IV .BOLUS ONE Stop: 10/21/17 17:29 Last Admin: 10/21/17 16:29 Dose: 500 mls/hr Acetaminophen 1,000 mg/ Premix 100 mls @ 400 mls/hr IV NOW ONE Stop: 10/21/17 20:24 Last Admin: 10/21/17 20:27 Dose: 400 mls/hr Lactated Ringer's (Ringers, Lactated) 500 mls @ 500 mls/hr IV ONETIME ONE Stop: 10/22/17 07:44 Last Admin: 10/22/17 06:49 Dose: 500 mls/hr Dextrose/Lactated Ringer's (Dextrose 5%-Lactated Ringers) 1,000 mls @ 100 mls/ hr IV ASDIRECTED [facility] Last Admin: 10/24/17 12:10 Dose: 100 mls/hr Multivitamins/Minerals 10 ml/Chromium/Copper/Manganese/Seleni/Zn 1 ml/ Dextrose/ Lactated Ringer's 1,011 mls @ 100 mls/hr IV DAILY@1600 [facility] Last Admin: 10/23/17 15:51 Dose: 100 mls/hr Magnesium Sulfate 2 gm/ Premix 50 mls @ 25 mls/hr IV Q6HR [facility] Stop: 10/25/17 05:59 Last Admin: 10/25/17 03:03 Dose: 25 mls/hr Potassium Phosphate 25 mmole/ (Sodium Chloride) 108.3333 mls @ 36 mls/hr IV Q3H [facility] Stop: 10/22/17 18:59 Last Admin: 10/22/17 18:36 Dose: 36 mls/hr Lactated Ringer's (Ringers, Lactated) 500 mls @ 500 mls/hr IV .BOLUS ONE Stop: 10/22/17 14:44 Last Admin: 10/22/17 14:14 Dose: 500 mls/hr Lactated Ringer's (Ringers, Lactated) 500 mls @ 500 mls/hr IV .BOLUS ONE Stop: 10/22/17 17:14 Last Admin: 10/22/17 16:20 Dose: 500 mls/hr Iohexol (Omnipaque-300) 50 ml PO . DIRECTED PRN PRN Reason: RADIOLOGY EXAM Stop: 10/23/17 04:01 Last Admin: 10/22/17 03:57 Dose: 50 ml Iopamidol (Isovue-300 (61%)) 100 ml IV . DIRECTED [facility] Last Admin: 10/20/17 21:23 Dose: 100 ml Ketamine HCl (Ketalar) 26 mg IV ASDIRECTED [facility] Ketamine HCl (Ketalar) 36 mg IV ASDIRECTED [facility] Lidocaine HCl (Xylocaine 2%) 90 mg IVPUSH ONETIME ONE Stop: 10/21/17 07:31 Last Admin: 10/21/17 12:08 Dose: Not Given Lidocaine/Epinephrine (Xylocaine 1% With Epinephrine 1:100,000) Confirm Administered Dose 50 ml .ROUTE .STK-MED ONE Stop: 10/23/17 06:40 Last Admin: 10/23/17 08:24 Dose: 12 ml Meropenem (Merrem) Confirm Administered Dose 500 mg .ROUTE .STK-MED ONE Stop: 10/21/17 05:43 Meropenem (Merrem) Confirm Administered Dose 500 mg .ROUTE .STK-MED ONE Stop: 10/21/17 07:39 Last Admin: 10/21/17 07:49 Dose: 500 mg Meropenem (Merrem) Confirm Administered Dose 500 mg .ROUTE .STK-MED ONE Stop: 10/23/17 06:40 Last Admin: 10/23/17 08:24 Dose: 500 mg Miscellaneous Information (Remove Patch) 1 ea TRDERM ONETIME ONE Stop: 10/23/17 10:01 Last Admin: 10/23/17 10:23 Dose: Not Given Naloxone HCl (Narcan) 0.4 mg IVPUSH Q2M PRN PRN Reason: Respiratory Distress Neostigmine Methylsulfate (Neostigmine) Confirm Administered Dose 5 mg .ROUTE .STK-MED ONE Stop: 10/21/17 04:57 Scopolamine Patch (Check) 1 each TOP DAILY [facility] Stop: 10/23/17 11:01 Last Admin: 10/23/17 10:23 Dose: Not Given Ondansetron HCl (Zofran) 4 mg IVPUSH ONETIME ONE Stop: 10/20/17 19:25 Last Admin: 10/20/17 20:56 Dose: 4 mg Ondansetron HCl (Zofran) Confirm Administered Dose 4 mg .ROUTE .STK-MED ONE Stop: 10/21/17 04:57 Pantoprazole Sodium (Protonix Iv) 40 mg IVPUSH Q24H [facility] Last Admin: 10/23/17 15:51 Dose: 40 mg Propofol (Diprivan 20 Ml) Confirm Administered Dose 200 mg .ROUTE .STK-MED ONE Stop: 10/21/17 04:57 Propofol (Diprivan 20 Ml) Confirm Administered Dose 200 mg .ROUTE .STK-MED ONE Stop: 10/23/17 08:17 Propofol (Diprivan 20 Ml) Confirm Administered Dose 200 mg .ROUTE .STK-MED ONE Stop: 10/23/17 08:17 Rocuronium [place] (Zemuron) Confirm Administered Dose 50 mg .ROUTE .STK-MED ONE Stop: 10/21/17 04:57 Rocuronium [place] (Zemuron) Confirm Administered Dose 50 mg .ROUTE .STK-MED ONE Stop: 10/21/17 07:10 Scopolamine (Transderm-Scop) Confirm Administered Dose 1.5 mg .ROUTE .STK-MED ONE Stop: 10/21/17 08:41 Sodium Chloride (Saline Flush) 10 ml FLUSH ASDIRECTED PRN PRN Reason: Keep Vein Open Last Admin: 10/20/17 21:02 Dose: 10 ml Succinylcholine Chloride (Quelicin) Confirm Administered Dose 200 mg .ROUTE .STK -MED ONE Stop: 10/21/17 04:57 Succinylcholine Chloride (Quelicin) Confirm Administered Dose 200 mg .ROUTE .STK -MED ONE Stop: 10/21/17 08:06 Tamsulosin HCl (Flomax) 0.4 mg PO ONETIME ONE Stop: 10/23/17 17:01 Last Admin: 10/23/17 17:10 Dose: 0.4 mg - Exam Quality Assessment: Supplemental Oxygen General: Alert, Oriented, Cooperative, No Acute Distress Neck: Supple Lungs: Normal Respiratory Effort, Crackles (few left lung base) Cardiovascular: Regular Rate, Regular Rhythm Extremities: No Pedal Edema Psy/Mental Status: Alert, Normal Affect Consult PN Assessment/Plan POD#: 4 Procedures: Procedures ASSAY ALKALINE PHOSPHATASE (06/14/13) ASSAY OF MAGNESIUM (07/02/17) BILIRUBIN TOTAL (06/14/13) COMP SCREEN MAMMOGRAM ADD-ON (07/23/15) COMPLETE CBC AUTOMATED (06/14/13) COMPLETE CBC W/AUTO DIFF WBC (07/03/17) COMPREHEN METABOLIC PANEL (02/09/17) CT HEAD/BRAIN W/O DYE (02/09/17) CULTURE SCREEN ONLY (07/02/17) EGD BIOPSY SINGLE/MULTIPLE (07/02/17) EGD REMOVE LESION SNARE (07/02/17) ELECTRICAL STIMULATION (06/28/17) EMERGENCY DEPT VISIT (07/03/17) EMERGENCY DEPT VISIT (02/09/17) EMERGENCY DEPT VISIT (02/09/17) EXTREMITY STUDY (01/28/17) GAIT TRAINING THERAPY (02/08/17) INJECT TRIGGER POINTS 3/> (03/02/17) LAPAROSCOPIC CHOLECYSTECTOMY (06/14/13) LIPID PANEL (03/02/14) MANUAL THERAPY 1/> REGIONS (06/28/17) MEASURE BLOOD OXYGEN LEVEL (08/22/17) METABOLIC PANEL TOTAL CA (07/02/17) MRI BRAIN STEM W/O DYE (02/11/17) MRI CHEST SPINE W/O & W/DYE (10/17/17) MRI CHEST SPINE W/O DYE (03/09/17) MRI JNT OF LWR EXTRE W/O DYE (09/30/16) MRI LOWER EXTREMITY W/O DYE (08/17/17) MRI LUMBAR SPINE W/O & W/DYE (10/17/17) MRI LUMBAR SPINE W/O DYE (09/30/16) MRI NECK SPINE W/O & W/DYE (10/17/17) MRI NECK SPINE W/O DYE (02/17/17) NEUROMUSCULAR REEDUCATION (05/12/17) NJX INTERLAMINAR LMBR/SAC (03/02/17) PT EVAL LOW COMPLEX 20 MIN (10/13/16) PT EVAL MOD COMPLEX 30 MIN (04/14/17) ROUTINE VENIPUNCTURE (07/03/17) THERAPEUTIC EXERCISES (06/28/17) TISSUE EXAM BY PATHOLOGIST (08/22/17) TISSUE EXAM BY PATHOLOGIST (07/02/17) TISSUE EXAM BY PATHOLOGIST (06/14/13) TISSUE EXAM BY PATHOLOGIST (06/12/13) ULTRASOUND THERAPY (06/28/17) US EXAM ABDOM COMPLETE (06/13/13) VITAMIN D 25 HYDROXY (07/02/17) X-RAY BEND ONLY L-S SPINE (10/18/16) (1) Hypoxia SNOMED Code(s): 114629934 Code(s): R09.02 - HYPOXEMIA Current Visit: Yes Problem List Initiated/Reviewed/Updated: Yes My Orders Last 24 Hours: My Active Orders 10/24/17 14:51 Weight Daily [Height and Weight] [RC] 0500 Convert IV to Saline Lock [OM.PC] Routine 10/25/17 14:00 Furosemide [Lasix] 20 mg IVPUSH Q8H Plan: ASSESSMENT AND PLAN - Hypoxia - suspect volume overload based on examination and intake and output imbalance. improved with diuresis but still has a fair amount of fluid based on edema and weight that is still 10 pounds higher than admission. 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 No bowel movement as of yet. -MOM -Postoperative cares per surgical team Fei Funes M.D.
[2017-10-25] MEDS ORDERED: Magnesium Hydroxide 400 MG/5 ML Susp 30 ML Cup PO PRN (10:56)
[2017-10-25] MEDS: Furosemide 20 MG/2 ML VIAL IVPUSH SCH ×2 (13:37→21:27)
[2017-10-25] MEDS: Pantoprazole 40 MG Delayed-Release Granules 1 Packet PO SCH (15:15)
[2017-10-25] MEDS: Tamsulosin 0.4 MG Cap.ER PO SCH (21:28)
[2017-10-26] MEDS: Acetaminophen Soln 650 MG/20.3 ML UD Cup PO SCH ×4 (01:24→20:42)
[2017-10-26] MEDS: Heparin Sodium 5,000 Units/ML Vial SUBCUT SCH ×2 (03:04→16:25)
[2017-10-26] MEDS: Albuterol/Ipratropium 3.0-0.5 MG/3 ML Neb Soln INH SCH ×4 (03:04→21:16)
[2017-10-26] MEDS: Furosemide 20 MG/2 ML VIAL IVPUSH SCH ×3 (05:38→21:19)
[2017-10-26] MEDS ORDERED: Potassium Chloride 20 MEQ Tab.ER PO ONE (08:27)
[2017-10-26] MEDS: Celecoxib 200 MG Cap PO SCH (08:30)
[2017-10-26] MEDS: Lisinopril 20 MG Tab PO SCH (08:30)
[2017-10-26] MEDS: Hydrochlorothiazide 25 MG Tab PO SCH (08:31)
--- NOTE | 2017-10-26 09:19 | PN ---
DATE OF SERVICE: 10/26/2017 SUBJECTIVE: Roxi continues to have low oxygen saturations. She is on O2. Hemoglobin this morning 9.5, magnesium is 1.7. She is having multiple bowel movements. She states her pain is controlled. Oral intake 1610. She remains to have a Samano catheter in, output was 5975 and she had 3 doses of Lasix yesterday. REVIEW OF SYSTEMS: Remainder of review of systems negative for any pertinent positives and negatives. OBJECTIVE: GENERAL: Roxi Patterson is a 42-year-old female. She is alert and oriented, sitting up in the chair. VITAL SIGNS: TPR is 98, 115, 16. Blood pressure 111/77. O2 is 96% on 0.5 L of O2. HEENT: Negative. NECK: Supple. HEART: Regular rate and rhythm. LUNGS: Clear. ABDOMEN: Negative. EXTREMITIES: Negative. SCDs are off because she is sitting in the chair. ASSESSMENT: 1. 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 Date of surgery, 10/20/2017. Surgeon, Ubaldo Mancera MD. 2. Fluid overload resulting in dyspnea and hypoxia. 3. Magnesium 1.7. PLAN: 1. Samano catheter will be discontinued per Fei Funes MD. 2. Check ferritin level on blood that has already been drawn. 3. KCl 60 mEq with lidocaine in 3 divided doses for marginal low potassium. 4. Magnesium 2 g IV q.6 hours x72 hours. 5. Good pulmonary toilet. 6. We will evaluate p.r.n. or in a.m. Yamilex Clinton PA-C /[id number]
[2017-10-26] MEDS: Potassium Chloride 20 MEQ, Lidocaine 1% 2 ML in Sodium Chloride 0.9% 100 ML IV SCH ×3 (10:15→14:21)
[2017-10-26] MEDS: Magnesium Sulfate/Water 2 GM in Premix Bag 1 BAG IV SCH ×3 (10:15→21:15)
[2017-10-26] MEDS: Gabapentin 250 MG/5 ML Solution ML 470 ML Bottle PO SCH ×3 (10:45→20:47)
--- NOTE | 2017-10-26 11:00 | PCM.CONSN ---
- General Info Date of Service: 10/26/17 Functional Status: Reports: Pain Controlled, Tolerating Diet, Ambulating - Review of Systems Pulmonary: Reports: Shortness of Breath Gastrointestinal: Reports: Abdominal Pain Systems Review Comment:: No acute events overnight. Oxygenation slowly improving. Excellent response to diuresis again yesterday. Weight is down more than 15 pounds. Less short of breath with activity but still requiring a small amount of supplemental oxygen. Edema slowly improving. - Patient Data Vitals - Most Recent: Last Vital Signs Temp 36.6 C 10/26/17 07:15 Pulse 115 H 10/26/17 07:15 Resp 16 10/26/17 07:15 BP 111/77 10/26/17 08:30 Pulse Ox 94 L 10/26/17 07:16 Weight - Most Recent: 75.432 kg I&O - Last 24 Hours: Intake & Output 10/25/17 10/26/17 10/26/17 22:59 06:59 14:59 Intake Total 240 270 Output Total 1550 2280 Balance -1550 -2040 270 Lab Results Last 24 Hours: Laboratory Results - last 24 hr 10/26/17 10/26/17 10/26/17 Range/Units 04:15 04:15 07:29 WBC 7.1 (4.5-11.0) K/uL RBC 3.09 L (3.30-5.50) M/uL Hgb 9.5 L (12.0-15.0) g/dL Hct 28.3 L (36.0-48.0) % MCV 92 (80-98) fL MCH 31 (27-31) pg MCHC 34 (32-36) % Plt Count 231 (150-400) K/uL Sodium 144 (140-148) mmol/L Potassium 3.7 (3.6-5.2) mmol/L Chloride 102 (100-108) mmol/L Carbon Dioxide 35 H (21-32) mmol/L Anion Gap 10.7 (5.0-14.0) mmol/L BUN 8 (7-18) mg/dL Creatinine 0.7 (0.6-1.0) mg/dL Est Cr Clr Drug Dosing 85.69 mL/min Estimated GFR (MDRD) > 60 (>60) Glucose 93 (74-106) mg/dL Calcium 8.5 (8.5-10.1) mg/dL Phosphorus 5.2 H (2.5-4.9) mg/dL Magnesium 1.7 L (1.8-2.4) mg/dL Ferritin 107 (8-388) ng/ml Total Bilirubin 0.3 (0.2-1.0) mg/dL AST 22 (15-37) U/L ALT 41 (12-78) U/L Alkaline Phosphatase 78 D (46-116) U/L Total Protein 5.3 L (6.4-8.2) g/dL Albumin 2.3 L (3.4-5.0) g/dL Globulin 3.0 (2.3-3.5) g/dL Albumin/Globulin Ratio 0.8 L (1.2-2.2) Med Orders - Current: Current Medications Acetaminophen (Tylenol) 650 mg PO Q6H [facility] Last Admin: 10/26/17 08:30 Dose: 650 mg Albuterol/Ipratropium (Duoneb 3.0-0.5 Mg/3 Ml) 3 ml INH ASDIRECTED PRN PRN Reason: BREATHING Last Admin: 10/23/17 06:53 Dose: 3 ml Albuterol/Ipratropium (Duoneb 3.0-0.5 Mg/3 Ml) 3 ml INH Q6H [facility] Last Admin: 10/26/17 09:37 Dose: 3 ml Celecoxib (Celebrex) 200 mg PO DAILY@0800 [facility] Last Admin: 10/26/17 08:30 Dose: 200 mg Diphenhydramine HCl (Benadryl) 25 - 50 mg IVPUSH Q4H PRN PRN Reason: ITCHING Gabapentin (Neurontin) 300 mg PO TID [facility] Last Admin: 10/26/17 10:45 Dose: 300 mg Haloperidol Lactate (Haldol) 2.5 mg IVPUSH Q1H PRN PRN Reason: Agitation Last Admin: 10/21/17 20:20 Dose: 2.5 mg Heparin Sodium (Porcine) (Heparin Sodium) 5,000 units SUBCUT Q12H [facility] Last Admin: 10/26/17 03:04 Dose: 5,000 units Heparin Sodium (Porcine) (Heparin Lock Flush 100 Units/Ml) 500 units FLUSH ASDIRECTED PRN PRN Reason: Keep Vein Open Last Admin: 10/26/17 05:38 Dose: 500 units Hydrochlorothiazide (Hydrochlorothiazide) 25 mg PO DAILY [facility] Last Admin: 10/26/17 08:31 Dose: 25 mg Hydromorphone HCl (Dilaudid) 2 - 4 mg PO Q4H PRN PRN Reason: Pain Last Admin: 10/25/17 07:39 Dose: 4 mg Hydroxyzine HCl (Vistaril) 75 - 100 mg IM Q4H PRN PRN Reason: pain Magnesium Sulfate 2 gm/ Premix 50 mls @ 25 mls/hr IV Q6H [facility] Stop: 10/29/17 05:59 Last Admin: 10/26/17 10:15 Dose: 25 mls/hr Potassium Chloride 20 meq/Lidocaine HCl 2 ml/ Sodium Chloride 112 mls @ 50 mls/ hr IV Q2H [facility] Stop: 10/26/17 14:29 Last Admin: 10/26/17 10:15 Dose: 50 mls/hr Lisinopril (Prinivil) 20 mg PO DAILY [facility] Last Admin: 10/26/17 08:30 Dose: 20 mg Magnesium Hydroxide (Milk Of Magnesia) 30 ml PO BID PRN PRN Reason: Constipation Last Admin: 10/25/17 15:15 Dose: 30 ml Metoclopramide HCl (Reglan) 10 mg IVPUSH Q6H PRN PRN Reason: NAUSEA NOT CONTROL BY ZOFRAN Last Admin: 10/21/17 17:02 Dose: 10 mg Naloxone HCl (Narcan) 0.1 mg IVPUSH Q2M PRN PRN Reason: Respiratory Distress Ondansetron HCl (Zofran) 4 mg IVPUSH Q4H PRN PRN Reason: Nausea/Vomiting Last Admin: 10/21/17 14:24 Dose: 4 mg Ondansetron HCl (Zofran Odt) 4 mg PO Q4H PRN PRN Reason: Nausea/Vomiting Last Admin: 10/25/17 09:53 Dose: 4 mg Pantoprazole Sodium (Protonix Granules) 40 mg PO Q24H [facility] Last Admin: 10/25/17 15:15 Dose: 40 mg Senna/Docusate Sodium (Senna Plus) 2 tab PO BID [facility] Last Admin: 10/26/17 08:31 Dose: Not Given Tamsulosin HCl (Flomax) 0.4 mg PO BEDTIME [facility] Last Admin: 10/25/17 21:28 Dose: 0.4 mg Discontinued Medications Albuterol/Ipratropium (Duoneb 3.0-0.5 Mg/3 Ml) 3 ml INH Q6H [facility] Last Admin: 10/21/17 14:36 Dose: Not Given Bupivacaine HCl (Marcaine 0.5%) Confirm Administered Dose 50 ml .ROUTE .STK-MED ONE Stop: 10/23/17 06:40 Last Admin: 10/23/17 08:23 Dose: 12 ml Ropivacaine 38 ml/Dexamethasone 8 mg/Epinephrine HCl 0.4 mg/ Sodium Chloride 39.6 ml 0 ml NERVRT ASDIRECTED [facility] Last Admin: 10/21/17 07:23 Dose: 80 syringe Ropivacaine 38 ml/Dexamethasone 8 mg/Epinephrine HCl 0.4 mg/ Sodium Chloride 39.6 ml 0 ml NERVRT ONETIME ONE Stop: 10/23/17 08:01 Last Admin: 10/23/17 08:17 Dose: 100 syringe Cyanocobalamin (Vitamin B12) 1,000 mcg IM ONETIME ONE Stop: 10/23/17 09:01 Last Admin: 10/23/17 10:22 Dose: 1,000 mcg Dexamethasone (Dexamethasone) Confirm Administered Dose 4 mg .ROUTE .STK-MED ONE Stop: 10/21/17 04:57 Fentanyl Citrate (Fentanyl) Confirm Administered Dose 500 mcg .ROUTE .STK-MED ONE Stop: 10/21/17 04:57 Furosemide (Lasix) 40 mg IVPUSH ONETIME ONE Stop: 10/24/17 14:31 Last Admin: 10/24/17 14:42 Dose: 40 mg Furosemide (Lasix) 40 mg IVPUSH Q8H [facility] Stop: 10/25/17 07:01 Last Admin: 10/25/17 06:11 Dose: 40 mg Furosemide (Lasix) 20 mg IVPUSH Q8H [facility] Stop: 10/26/17 06:01 Last Admin: 10/26/17 05:38 Dose: 20 mg Glycopyrrolate (Robinul) Confirm Administered Dose 1 mg .ROUTE .STK-MED ONE Stop: 10/21/17 04:57 Heparin Sodium (Porcine) (Heparin Lock Flush 100 Units/Ml) Confirm Administered Dose 1,000 units .ROUTE .STK-MED ONE Stop: 10/21/17 05:05 Last Admin: 10/21/17 06:38 Dose: 1,000 units Heparin Sodium (Porcine) (Heparin Lock Flush 100 Units/Ml) Confirm Administered Dose 500 units .ROUTE .STK-MED ONE Stop: 10/22/17 04:29 Last Admin: 10/22/17 04:42 Dose: Not Given Hydromorphone HCl (Dilaudid) 0.5 mg IVPUSH ONETIME ONE Stop: 10/20/17 20:46 Last Admin: 10/20/17 20:52 Dose: 0.5 mg Hydromorphone HCl (Dilaudid Second Cutter 15 Mg In Ns 30 Ml) 0 mg IV ASDIRECTED PRN; Protocol PRN Reason: Pain Last Admin: 10/20/17 23:53 Dose: 15 mg Sodium Chloride (Normal Saline) 1,000 mls @ 999 mls/hr IV ASDIRECTED [facility] Last Admin: 10/20/17 21:47 Dose: 999 mls/hr Sodium Chloride (Normal Saline) 80 mls @ 3 mls/sec IV ASDIRECTED [facility] Last Admin: 10/20/17 21:23 Dose: 3 mls/sec Lidocaine HCl (Xylocaine-Mpf 1%) Confirm Administered Dose 2 mls @ as directed .ROUTE .STK-MED ONE Stop: 10/20/17 20:27 Meropenem 500 mg/ Sodium (Chloride) 50 mls @ 100 mls/hr IV ONETIME ONE Stop: 10/20/17 23:44 Last Admin: 10/20/17 23:58 Dose: 100 mls/hr Sodium Chloride (Normal Saline) 1,000 mls @ 300 mls/hr IV ASDIRECTED [facility] Last Admin: 10/21/17 02:37 Dose: 300 mls/hr Lidocaine HCl/Dextrose (Lidocaine 2 Gm/D5w 500 Ml) 2 gm in 500 mls @ 22.5 mls/ hr IV .[id number] KAYLA PRN Reason: 1.5 MG/MIN Stop: 10/22/17 09:00 Last Admin: 10/21/17 12:09 Dose: 1.5 mg/min, 22.5 mls/hr Dextrose/Lactated Ringer's (Dextrose 5%-Lactated Ringers) 1,000 mls @ 175 mls/ hr IV ASDIRECTED [facility] Stop: 10/22/17 13:59 Last Admin: 10/22/17 05:36 Dose: 175 mls/hr Multivitamins/Minerals 10 ml/Thiamine HCl 100 mg/ Chromium/Copper/Manganese/ Seleni/Zn 1 ml/ Dextrose/Lactated Ringer's 1,012 mls @ 174.826 mls/hr IV DAILY@ 1600 [facility] Last Admin: 10/21/17 16:09 Dose: 174.826 mls/hr Cefoxitin Sodium 2 gm/ Sodium (Chloride) 50 mls @ 100 mls/hr IV Q6H [facility] Stop: 10/22/17 11:29 Last Admin: 10/22/17 10:05 Dose: 100 mls/hr Lactated Ringer's (Ringers, Lactated) 500 mls @ 500 mls/hr IV .BOLUS ONE Stop: 10/21/17 17:29 Last Admin: 10/21/17 16:29 Dose: 500 mls/hr Acetaminophen 1,000 mg/ Premix 100 mls @ 400 mls/hr IV NOW ONE Stop: 10/21/17 20:24 Last Admin: 10/21/17 20:27 Dose: 400 mls/hr Lactated Ringer's (Ringers, Lactated) 500 mls @ 500 mls/hr IV ONETIME ONE Stop: 10/22/17 07:44 Last Admin: 10/22/17 06:49 Dose: 500 mls/hr Dextrose/Lactated Ringer's (Dextrose 5%-Lactated Ringers) 1,000 mls @ 100 mls/ hr IV ASDIRECTED [facility] Last Admin: 10/24/17 12:10 Dose: 100 mls/hr Multivitamins/Minerals 10 ml/Chromium/Copper/Manganese/Seleni/Zn 1 ml/ Dextrose/ Lactated Ringer's 1,011 mls @ 100 mls/hr IV DAILY@1600 [facility] Last Admin: 10/23/17 15:51 Dose: 100 mls/hr Magnesium Sulfate 2 gm/ Premix 50 mls @ 25 mls/hr IV Q6HR [facility] Stop: 10/25/17 05:59 Last Admin: 10/25/17 03:03 Dose: 25 mls/hr Potassium Phosphate 25 mmole/ (Sodium Chloride) 108.3333 mls @ 36 mls/hr IV Q3H [facility] Stop: 10/22/17 18:59 Last Admin: 10/22/17 18:36 Dose: 36 mls/hr Lactated Ringer's (Ringers, Lactated) 500 mls @ 500 mls/hr IV .BOLUS ONE Stop: 10/22/17 14:44 Last Admin: 10/22/17 14:14 Dose: 500 mls/hr Lactated Ringer's (Ringers, Lactated) 500 mls @ 500 mls/hr IV .BOLUS ONE Stop: 10/22/17 17:14 Last Admin: 10/22/17 16:20 Dose: 500 mls/hr Iohexol (Omnipaque-300) 50 ml PO . DIRECTED PRN PRN Reason: RADIOLOGY EXAM Stop: 10/23/17 04:01 Last Admin: 10/22/17 03:57 Dose: 50 ml Iopamidol (Isovue-300 (61%)) 100 ml IV . DIRECTED [facility]AY[facility] Last Admin: 10/20/17 21:23 Dose: 100 ml Ketamine HCl (Ketalar) 26 mg IV ASDIRECTED [facility]AYLA Ketamine HCl (Ketalar) 36 mg IV ASDIRECTED [facility] Labetalol HCl (Normodyne) 5 - 15 mg IVPUSH Q1H PRN PRN Reason: SBP over 160 OR DBP over 95 Lidocaine HCl (Xylocaine 2%) 90 mg IVPUSH ONETIME ONE Stop: 10/21/17 07:31 Last Admin: 10/21/17 12:08 Dose: Not Given Lidocaine/Epinephrine (Xylocaine 1% With Epinephrine 1:100,000) Confirm Administered Dose 50 ml .ROUTE .STK-MED ONE Stop: 10/23/17 06:40 Last Admin: 10/23/17 08:24 Dose: 12 ml Meropenem (Merrem) Confirm Administered Dose 500 mg .ROUTE .STK-MED ONE Stop: 10/21/17 05:43 Meropenem (Merrem) Confirm Administered Dose 500 mg .ROUTE .STK-MED ONE Stop: 10/21/17 07:39 Last Admin: 10/21/17 07:49 Dose: 500 mg Meropenem (Merrem) Confirm Administered Dose 500 mg .ROUTE .STK-MED ONE Stop: 10/23/17 06:40 Last Admin: 10/23/17 08:24 Dose: 500 mg Miscellaneous Information (Remove Patch) 1 ea TRDERM ONETIME ONE Stop: 10/23/17 10:01 Last Admin: 10/23/17 10:23 Dose: Not Given Naloxone HCl (Narcan) 0.4 mg IVPUSH Q2M PRN PRN Reason: Respiratory Distress Neostigmine Methylsulfate (Neostigmine) Confirm Administered Dose 5 mg .ROUTE .STK-MED ONE Stop: 10/21/17 04:57 Scopolamine Patch (Check) 1 each TOP DAILY [facility] Stop: 10/23/17 11:01 Last Admin: 10/23/17 10:23 Dose: Not Given Ondansetron HCl (Zofran) 4 mg IVPUSH ONETIME ONE Stop: 10/20/17 19:25 Last Admin: 10/20/17 20:56 Dose: 4 mg Ondansetron HCl (Zofran) Confirm Administered Dose 4 mg .ROUTE .STK-MED ONE Stop: 10/21/17 04:57 Pantoprazole Sodium (Protonix Iv) 40 mg IVPUSH Q24H [facility] Last Admin: 10/23/17 15:51 Dose: 40 mg Potassium Chloride (Klor-Con M20) 40 meq PO ONETIME ONE Stop: 10/26/17 08:28 Propofol (Diprivan 20 Ml) Confirm Administered Dose 200 mg .ROUTE .STK-MED ONE Stop: 10/21/17 04:57 Propofol (Diprivan 20 Ml) Confirm Administered Dose 200 mg .ROUTE .STK-MED ONE Stop: 10/23/17 08:17 Propofol (Diprivan 20 Ml) Confirm Administered Dose 200 mg .ROUTE .STK-MED ONE Stop: 10/23/17 08:17 Rocuronium [place] (Zemuron) Confirm Administered Dose 50 mg .ROUTE .STK-MED ONE Stop: 10/21/17 04:57 Rocuronium [place] (Zemuron) Confirm Administered Dose 50 mg .ROUTE .STK-MED ONE Stop: 10/21/17 07:10 Scopolamine (Transderm-Scop) Confirm Administered Dose 1.5 mg .ROUTE .STK-MED ONE Stop: 10/21/17 08:41 Sodium Chloride (Saline Flush) 10 ml FLUSH ASDIRECTED PRN PRN Reason: Keep Vein Open Last Admin: 10/20/17 21:02 Dose: 10 ml Succinylcholine Chloride (Quelicin) Confirm Administered Dose 200 mg .ROUTE .STK -MED ONE Stop: 10/21/17 04:57 Succinylcholine Chloride (Quelicin) Confirm Administered Dose 200 mg .ROUTE .STK -MED ONE Stop: 10/21/17 08:06 Tamsulosin HCl (Flomax) 0.4 mg PO ONETIME ONE Stop: 10/23/17 17:01 Last Admin: 10/23/17 17:10 Dose: 0.4 mg - Exam Quality Assessment: Supplemental Oxygen General: Alert, Oriented, Cooperative, No Acute Distress Neck: Supple Lungs: Clear to Auscultation, Normal Respiratory Effort, Crackles (rare left lung base) Cardiovascular: Regular Rate, Regular Rhythm GI/Abdominal Exam: Soft, No Distention Extremities: Pedal Edema (mild bilateral edema) Skin: Warm, Dry Psy/Mental Status: Alert, Normal Affect Consult PN Assessment/Plan POD#: 5 Procedures: Procedures ASSAY ALKALINE PHOSPHATASE (06/14/13) ASSAY OF MAGNESIUM (07/02/17) BILIRUBIN TOTAL (06/14/13) COMP SCREEN MAMMOGRAM ADD-ON (07/23/15) COMPLETE CBC AUTOMATED (06/14/13) COMPLETE CBC W/AUTO DIFF WBC (07/03/17) COMPREHEN METABOLIC PANEL (02/09/17) CT HEAD/BRAIN W/O DYE (02/09/17) CULTURE SCREEN ONLY (07/02/17) EGD BIOPSY SINGLE/MULTIPLE (07/02/17) EGD REMOVE LESION SNARE (07/02/17) ELECTRICAL STIMULATION (06/28/17) EMERGENCY DEPT VISIT (07/03/17) EMERGENCY DEPT VISIT (02/09/17) EMERGENCY DEPT VISIT (02/09/17) EXTREMITY STUDY (01/28/17) GAIT TRAINING THERAPY (02/08/17) INJECT TRIGGER POINTS 3/> (03/02/17) LAPAROSCOPIC CHOLECYSTECTOMY (06/14/13) LIPID PANEL (03/02/14) MANUAL THERAPY 1/> REGIONS (06/28/17) MEASURE BLOOD OXYGEN LEVEL (08/22/17) METABOLIC PANEL TOTAL CA (07/02/17) MRI BRAIN STEM W/O DYE (02/11/17) MRI CHEST SPINE W/O & W/DYE (10/17/17) MRI CHEST SPINE W/O DYE (03/09/17) MRI JNT OF LWR EXTRE W/O DYE (09/30/16) MRI LOWER EXTREMITY W/O DYE (08/17/17) MRI LUMBAR SPINE W/O & W/DYE (10/17/17) MRI LUMBAR SPINE W/O DYE (09/30/16) MRI NECK SPINE W/O & W/DYE (10/17/17) MRI NECK SPINE W/O DYE (02/17/17) NEUROMUSCULAR REEDUCATION (05/12/17) NJX INTERLAMINAR LMBR/SAC (03/02/17) PT EVAL LOW COMPLEX 20 MIN (10/13/16) PT EVAL MOD COMPLEX 30 MIN (04/14/17) ROUTINE VENIPUNCTURE (07/03/17) THERAPEUTIC EXERCISES (06/28/17) TISSUE EXAM BY PATHOLOGIST (08/22/17) TISSUE EXAM BY PATHOLOGIST (07/02/17) TISSUE EXAM BY PATHOLOGIST (06/14/13) TISSUE EXAM BY PATHOLOGIST (06/12/13) ULTRASOUND THERAPY (06/28/17) US EXAM ABDOM COMPLETE (06/13/13) VITAMIN D 25 HYDROXY (07/02/17) X-RAY BEND ONLY L-S SPINE (10/18/16) (1) Hypoxia SNOMED Code(s): 115021920 Code(s): R09.02 - HYPOXEMIA Current Visit: Yes Problem List Initiated/Reviewed/Updated: Yes My Orders Last 24 Hours: My Active Orders 10/25/17 10:56 Magnesium Hydroxide [Milk of Magnesia] 30 ml PO BID PRN 10/26/17 14:00 Furosemide [Lasix] 20 mg IVPUSH Q8H Plan: ASSESSMENT AND PLAN - Hypoxia - ongoing improvement with diuresis. Weight still up a few pounds from what I believe is her baseline. Edema better but not resolved. Still some hypoxia. Potassium level on the low side of normal after diuresis and she will receive some supplementation today. 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 Did have bowel movement yesterday. -Postoperative cares per surgical team Fei Funes M.D.
[2017-10-26] MEDS: HYDROmorphone 2 MG Tab PO PRN (12:50)
[2017-10-26] MEDS: Pantoprazole 40 MG Delayed-Release Granules 1 Packet PO SCH (16:26)
[2017-10-26] MEDS: Tamsulosin 0.4 MG Cap.ER PO SCH (20:43)
[2017-10-27] MEDS: Acetaminophen Soln 650 MG/20.3 ML UD Cup PO SCH ×4 (02:58→20:34)
[2017-10-27] MEDS: Magnesium Sulfate/Water 2 GM in Premix Bag 1 BAG IV SCH ×4 (03:01→22:25)
[2017-10-27] MEDS: Albuterol/Ipratropium 3.0-0.5 MG/3 ML Neb Soln INH SCH ×2 (03:01→09:36)
[2017-10-27] MEDS: Heparin Sodium 5,000 Units/ML Vial SUBCUT SCH ×2 (03:01→16:02)
[2017-10-27] MEDS: Gabapentin 250 MG/5 ML Solution ML 470 ML Bottle PO SCH ×3 (08:21→20:35)
[2017-10-27] MEDS: Lisinopril 20 MG Tab PO SCH (08:21)
[2017-10-27] MEDS: Celecoxib 200 MG Cap PO SCH (08:21)
[2017-10-27] MEDS: Hydrochlorothiazide 25 MG Tab PO SCH (08:22)
--- NOTE | 2017-10-27 08:23 | PN ---
DATE OF SERVICE: 10/27/2017 SUBJECTIVE: Roxi states that she is having no difficulty eating. The only pain she has is in her right and left hip area. Oral intake was 1560. Urine output was 4900 mL via Samano catheter. IHSAN drains have put out 45 and 3 mL respectively of light pink serosanguineous drainage. REVIEW OF SYSTEMS: Remainder of review of systems negative for any pertinent positives and negatives. OBJECTIVE: GENERAL: Roxi Patterson is a 42-year-old female. VITAL SIGNS: TPR is 98.5, 96, 18. O2 saturation by pulse oximetry is 92% at 0.5 L of O2. HEENT: Negative. NECK: Supple. HEART: Regular rate and rhythm. LUNGS: Clear. ABDOMEN: Occlusive dressing is on. IHSAN drain is intact. Abdominal binder is on. EXTREMITIES: With trace peripheral edema. ASSESSMENT: 1. Insertion of right triple-lumen catheter exploratory laparotomy and takedown of Stefano fundoplication, total gastrectomy and Sathish-en-Y gastrojejunostomy and left salpingo- oophorectomy. 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 Date of surgery, 10/20/2017. Surgeon, Ubaldo Mancera MD. 2. Fluid overload resulting in dyspnea and hypoxia. PLAN: Continue good pulmonary toilet. Samano catheter will be monitored and discontinued per Dr. Fei Funes, pending status of her fluids. We will evaluate p.r.n. or in a.m. Yamilex Clinton PA-C /[id number]
--- NOTE | 2017-10-27 11:50 | PCM.PN ---
- General Info Date of Service: 10/27/17 Functional Status: Reports: Pain Controlled, Tolerating Diet, Ambulating - Review of Systems Pulmonary: Denies: Shortness of Breath Genitourinary: Reports: Dysuria - Patient Data Vitals - Most Recent: Last Vital Signs Temp 36.6 C 10/27/17 11:00 Pulse 117 H 10/27/17 11:00 Resp 18 10/27/17 11:00 BP 111/74 10/27/17 11:00 Pulse Ox 97 10/27/17 11:00 Weight - Most Recent: 72.983 kg I&O - Last 24 Hours: Intake & Output 10/26/17 10/27/17 10/27/17 22:59 06:59 14:59 Intake Total 820 170 240 Output Total 1600 1828 Balance -780 -1658 240 Lab Results Last 24 Hours: Laboratory Results - last 24 hr 10/27/17 10/27/17 Range/Units 04:20 04:20 WBC 7.1 (4.5-11.0) K/uL RBC 3.29 L (3.30-5.50) M/uL Hgb 10.2 L (12.0-15.0) g/dL Hct 30.3 L (36.0-48.0) % MCV 92 (80-98) fL MCH 31 (27-31) pg MCHC 34 (32-36) % Plt Count 288 (150-400) K/uL Sodium 138 L (140-148) mmol/L Potassium 4.0 (3.6-5.2) mmol/L Chloride 99 L (100-108) mmol/L Carbon Dioxide 33 H (21-32) mmol/L Anion Gap 10.0 (5.0-14.0) mmol/L BUN 8 (7-18) mg/dL Creatinine 0.8 (0.6-1.0) mg/dL Est Cr Clr Drug Dosing 74.98 mL/min Estimated GFR (MDRD) > 60 (>60) Glucose 103 (74-106) mg/dL Calcium 8.8 (8.5-10.1) mg/dL Phosphorus 3.6 (2.5-4.9) mg/dL Total Bilirubin 0.2 (0.2-1.0) mg/dL AST 22 (15-37) U/L ALT 37 (12-78) U/L Alkaline Phosphatase 85 (46-116) U/L Total Protein 5.7 L (6.4-8.2) g/dL Albumin 2.4 L (3.4-5.0) g/dL Globulin 3.3 (2.3-3.5) g/dL Albumin/Globulin Ratio 0.7 L (1.2-2.2) Med Orders - Current: Current Medications Acetaminophen (Tylenol) 650 mg PO Q6H [facility] Last Admin: 10/27/17 08:22 Dose: 650 mg Albuterol/Ipratropium (Duoneb 3.0-0.5 Mg/3 Ml) 3 ml INH ASDIRECTED PRN PRN Reason: BREATHING Last Admin: 10/23/17 06:53 Dose: 3 ml Celecoxib (Celebrex) 200 mg PO DAILY@0800 [facility] Last Admin: 10/27/17 08:21 Dose: 200 mg Gabapentin (Neurontin) 300 mg PO TID [facility] Last Admin: 10/27/17 08:21 Dose: 300 mg Heparin Sodium (Porcine) (Heparin Sodium) 5,000 units SUBCUT Q12H [facility] Last Admin: 10/27/17 03:01 Dose: 5,000 units Heparin Sodium (Porcine) (Heparin Lock Flush 100 Units/Ml) 500 units FLUSH ASDIRECTED PRN PRN Reason: Keep Vein Open Last Admin: 10/27/17 06:01 Dose: 500 units Hydrochlorothiazide (Hydrochlorothiazide) 25 mg PO DAILY [facility] Last Admin: 10/27/17 08:22 Dose: 25 mg Hydromorphone HCl (Dilaudid) 2 - 4 mg PO Q4H PRN PRN Reason: Pain Last Admin: 10/26/17 12:50 Dose: 2 mg Magnesium Sulfate 2 gm/ Premix 50 mls @ 25 mls/hr IV Q6H [facility] Stop: 10/29/17 05:59 Last Admin: 10/27/17 10:13 Dose: 25 mls/hr Ceftriaxone Sodium 1 gm/ (Sodium Chloride) 50 mls @ 100 mls/hr IV ONETIME ONE Stop: 10/27/17 12:29 Lisinopril (Prinivil) 20 mg PO DAILY [facility] Last Admin: 10/27/17 08:21 Dose: 20 mg Magnesium Hydroxide (Milk Of Magnesia) 30 ml PO BID PRN PRN Reason: Constipation Last Admin: 10/25/17 15:15 Dose: 30 ml Metoclopramide HCl (Reglan) 10 mg IVPUSH Q6H PRN PRN Reason: NAUSEA NOT CONTROL BY ZOFRAN Last Admin: 10/21/17 17:02 Dose: 10 mg Naloxone HCl (Narcan) 0.1 mg IVPUSH Q2M PRN PRN Reason: Respiratory Distress Ondansetron HCl (Zofran) 4 mg IVPUSH Q4H PRN PRN Reason: Nausea/Vomiting Last Admin: 10/21/17 14:24 Dose: 4 mg Ondansetron HCl (Zofran Odt) 4 mg PO Q4H PRN PRN Reason: Nausea/Vomiting Last Admin: 10/25/17 09:53 Dose: 4 mg Pantoprazole Sodium (Protonix Granules) 40 mg PO Q24H [facility] Last Admin: 10/26/17 16:26 Dose: 40 mg Senna/Docusate Sodium (Senna Plus) 2 tab PO BID [facility] Last Admin: 10/27/17 08:22 Dose: Not Given Tamsulosin HCl (Flomax) 0.4 mg PO BEDTIME [facility] Last Admin: 10/26/17 20:43 Dose: 0.4 mg Discontinued Medications Albuterol/Ipratropium (Duoneb 3.0-0.5 Mg/3 Ml) 3 ml INH Q6H [facility] Last Admin: 10/21/17 14:36 Dose: Not Given Albuterol/Ipratropium (Duoneb 3.0-0.5 Mg/3 Ml) 3 ml INH Q6H [facility] Last Admin: 10/27/17 09:36 Dose: 3 ml Bupivacaine HCl (Marcaine 0.5%) Confirm Administered Dose 50 ml .ROUTE .STK-MED ONE Stop: 10/23/17 06:40 Last Admin: 10/23/17 08:23 Dose: 12 ml Ropivacaine 38 ml/Dexamethasone 8 mg/Epinephrine HCl 0.4 mg/ Sodium Chloride 39.6 ml 0 ml NERVRT ASDIRECTED [facility] Last Admin: 10/21/17 07:23 Dose: 80 syringe Ropivacaine 38 ml/Dexamethasone 8 mg/Epinephrine HCl 0.4 mg/ Sodium Chloride 39.6 ml 0 ml NERVRT ONETIME ONE Stop: 10/23/17 08:01 Last Admin: 10/23/17 08:17 Dose: 100 syringe Cyanocobalamin (Vitamin B12) 1,000 mcg IM ONETIME ONE Stop: 10/23/17 09:01 Last Admin: 10/23/17 10:22 Dose: 1,000 mcg Dexamethasone (Dexamethasone) Confirm Administered Dose 4 mg .ROUTE .STK-MED ONE Stop: 10/21/17 04:57 Diphenhydramine HCl (Benadryl) 25 - 50 mg IVPUSH Q4H PRN PRN Reason: ITCHING Fentanyl Citrate (Fentanyl) Confirm Administered Dose 500 mcg .ROUTE .STK-MED ONE Stop: 10/21/17 04:57 Furosemide (Lasix) 40 mg IVPUSH ONETIME ONE Stop: 10/24/17 14:31 Last Admin: 10/24/17 14:42 Dose: 40 mg Furosemide (Lasix) 40 mg IVPUSH Q8H [facility] Stop: 10/25/17 07:01 Last Admin: 10/25/17 06:11 Dose: 40 mg Furosemide (Lasix) 20 mg IVPUSH Q8H [facility] Stop: 10/26/17 06:01 Last Admin: 10/26/17 05:38 Dose: 20 mg Furosemide (Lasix) 20 mg IVPUSH Q8H [facility] Stop: 10/26/17 22:01 Last Admin: 10/26/17 21:19 Dose: 20 mg Glycopyrrolate (Robinul) Confirm Administered Dose 1 mg .ROUTE .STK-MED ONE Stop: 10/21/17 04:57 Haloperidol Lactate (Haldol) 2.5 mg IVPUSH Q1H PRN PRN Reason: Agitation Last Admin: 10/21/17 20:20 Dose: 2.5 mg Heparin Sodium (Porcine) (Heparin Lock Flush 100 Units/Ml) Confirm Administered Dose 1,000 units .ROUTE .STK-MED ONE Stop: 10/21/17 05:05 Last Admin: 10/21/17 06:38 Dose: 1,000 units Heparin Sodium (Porcine) (Heparin Lock Flush 100 Units/Ml) Confirm Administered Dose 500 units .ROUTE .STK-MED ONE Stop: 10/22/17 04:29 Last Admin: 10/22/17 04:42 Dose: Not Given Hydromorphone HCl (Dilaudid) 0.5 mg IVPUSH ONETIME ONE Stop: 10/20/17 20:46 Last Admin: 10/20/17 20:52 Dose: 0.5 mg Hydromorphone HCl (Dilaudid [employer] 15 Mg In Ns 30 Ml) 0 mg IV ASDIRECTED PRN; Protocol PRN Reason: Pain Last Admin: 10/20/17 23:53 Dose: 15 mg Hydroxyzine HCl (Vistaril) 75 - 100 mg IM Q4H PRN PRN Reason: pain Sodium Chloride (Normal Saline) 1,000 mls @ 999 mls/hr IV ASDIRECTED [facility] Last Admin: 10/20/17 21:47 Dose: 999 mls/hr Sodium Chloride (Normal Saline) 80 mls @ 3 mls/sec IV ASDIRECTED [facility] Last Admin: 10/20/17 21:23 Dose: 3 mls/sec Lidocaine HCl (Xylocaine-Mpf 1%) Confirm Administered Dose 2 mls @ as directed .ROUTE .STK-MED ONE Stop: 10/20/17 20:27 Meropenem 500 mg/ Sodium (Chloride) 50 mls @ 100 mls/hr IV ONETIME ONE Stop: 10/20/17 23:44 Last Admin: 10/20/17 23:58 Dose: 100 mls/hr Sodium Chloride (Normal Saline) 1,000 mls @ 300 mls/hr IV ASDIRECTED [facility] Last Admin: 10/21/17 02:37 Dose: 300 mls/hr Lidocaine HCl/Dextrose (Lidocaine 2 Gm/D5w 500 Ml) 2 gm in 500 mls @ 22.5 mls/ hr IV .[id number] [facility] PRN Reason: 1.5 MG/MIN Stop: 10/22/17 09:00 Last Admin: 10/21/17 12:09 Dose: 1.5 mg/min, 22.5 mls/hr Dextrose/Lactated Ringer's (Dextrose 5%-Lactated Ringers) 1,000 mls @ 175 mls/ hr IV ASDIRECTED [facility] Stop: 10/22/17 13:59 Last Admin: 10/22/17 05:36 Dose: 175 mls/hr Multivitamins/Minerals 10 ml/Thiamine HCl 100 mg/ Chromium/Copper/Manganese/ Seleni/Zn 1 ml/ Dextrose/Lactated Ringer's 1,012 mls @ 174.826 mls/hr IV DAILY@ 1600 [facility] Last Admin: 10/21/17 16:09 Dose: 174.826 mls/hr Cefoxitin Sodium 2 gm/ Sodium (Chloride) 50 mls @ 100 mls/hr IV Q6H [facility] Stop: 10/22/17 11:29 Last Admin: 10/22/17 10:05 Dose: 100 mls/hr Lactated Ringer's (Ringers, Lactated) 500 mls @ 500 mls/hr IV .BOLUS ONE Stop: 10/21/17 17:29 Last Admin: 10/21/17 16:29 Dose: 500 mls/hr Acetaminophen 1,000 mg/ Premix 100 mls @ 400 mls/hr IV NOW ONE Stop: 10/21/17 20:24 Last Admin: 10/21/17 20:27 Dose: 400 mls/hr Lactated Ringer's (Ringers, Lactated) 500 mls @ 500 mls/hr IV ONETIME ONE Stop: 10/22/17 07:44 Last Admin: 10/22/17 06:49 Dose: 500 mls/hr Dextrose/Lactated Ringer's (Dextrose 5%-Lactated Ringers) 1,000 mls @ 100 mls/ hr IV ASDIRECTED [facility] Last Admin: 10/24/17 12:10 Dose: 100 mls/hr Multivitamins/Minerals 10 ml/Chromium/Copper/Manganese/Seleni/Zn 1 ml/ Dextrose/ Lactated Ringer's 1,011 mls @ 100 mls/hr IV DAILY@1600 [facility] Last Admin: 10/23/17 15:51 Dose: 100 mls/hr Magnesium Sulfate 2 gm/ Premix 50 mls @ 25 mls/hr IV Q6HR [facility] Stop: 10/25/17 05:59 Last Admin: 10/25/17 03:03 Dose: 25 mls/hr Potassium Phosphate 25 mmole/ (Sodium Chloride) 108.3333 mls @ 36 mls/hr IV Q3H [facility] Stop: 10/22/17 18:59 Last Admin: 10/22/17 18:36 Dose: 36 mls/hr Lactated Ringer's (Ringers, Lactated) 500 mls @ 500 mls/hr IV .BOLUS ONE Stop: 10/22/17 14:44 Last Admin: 10/22/17 14:14 Dose: 500 mls/hr Lactated Ringer's (Ringers, Lactated) 500 mls @ 500 mls/hr IV .BOLUS ONE Stop: 10/22/17 17:14 Last Admin: 10/22/17 16:20 Dose: 500 mls/hr Potassium Chloride 20 meq/Lidocaine HCl 2 ml/ Sodium Chloride 112 mls @ 50 mls/ hr IV Q2H [facility] Stop: 10/26/17 14:29 Last Admin: 10/26/17 14:21 Dose: 50 mls/hr Iohexol (Omnipaque-300) 50 ml PO . DIRECTED PRN PRN Reason: RADIOLOGY EXAM Stop: 10/23/17 04:01 Last Admin: 10/22/17 03:57 Dose: 50 ml Iopamidol (Isovue-300 (61%)) 100 ml IV . DIRECTED [facility] Last Admin: 10/20/17 21:23 Dose: 100 ml Ketamine HCl (Ketalar) 26 mg IV ASDIRECTED [facility] Ketamine HCl (Ketalar) 36 mg IV ASDIRECTED [facility] Labetalol HCl (Normodyne) 5 - 15 mg IVPUSH Q1H PRN PRN Reason: SBP over 160 OR DBP over 95 Lidocaine HCl (Xylocaine 2%) 90 mg IVPUSH ONETIME ONE Stop: 10/21/17 07:31 Last Admin: 10/21/17 12:08 Dose: Not Given Lidocaine/Epinephrine (Xylocaine 1% With Epinephrine 1:100,000) Confirm Administered Dose 50 ml .ROUTE .STK-MED ONE Stop: 10/23/17 06:40 Last Admin: 10/23/17 08:24 Dose: 12 ml Meropenem (Merrem) Confirm Administered Dose 500 mg .ROUTE .STK-MED ONE Stop: 10/21/17 05:43 Meropenem (Merrem) Confirm Administered Dose 500 mg .ROUTE .STK-MED ONE Stop: 10/21/17 07:39 Last Admin: 10/21/17 07:49 Dose: 500 mg Meropenem (Merrem) Confirm Administered Dose 500 mg .ROUTE .STK-MED ONE Stop: 10/23/17 06:40 Last Admin: 10/23/17 08:24 Dose: 500 mg Miscellaneous Information (Remove Patch) 1 ea TRDERM ONETIME ONE Stop: 10/23/17 10:01 Last Admin: 03/11/18 10:23 Dose: Not Given Naloxone HCl (Narcan) 0.4 mg IVPUSH Q2M PRN PRN Reason: Respiratory Distress Neostigmine Methylsulfate (Neostigmine) Confirm Administered Dose 5 mg .ROUTE .STK-MED ONE Stop: 10/21/17 04:57 Scopolamine Patch (Check) 1 each TOP DAILY [facility] Stop: 10/23/17 11:01 Last Admin: 10/23/17 10:23 Dose: Not Given Ondansetron HCl (Zofran) 4 mg IVPUSH ONETIME ONE Stop: 10/20/17 19:25 Last Admin: 10/20/17 20:56 Dose: 4 mg Ondansetron HCl (Zofran) Confirm Administered Dose 4 mg .ROUTE .STK-MED ONE Stop: 10/21/17 04:57 Pantoprazole Sodium (Protonix Iv) 40 mg IVPUSH Q24H [facility] Last Admin: 10/23/17 15:51 Dose: 40 mg Potassium Chloride (Klor-Con M20) 40 meq PO ONETIME ONE Stop: 10/26/17 08:28 Last Admin: 10/26/17 11:03 Dose: Not Given Propofol (Diprivan 20 Ml) Confirm Administered Dose 200 mg .ROUTE .STK-MED ONE Stop: 10/21/17 04:57 Propofol (Diprivan 20 Ml) Confirm Administered Dose 200 mg .ROUTE .STK-MED ONE Stop: 10/23/17 08:17 Propofol (Diprivan 20 Ml) Confirm Administered Dose 200 mg .ROUTE .STK-MED ONE Stop: 10/23/17 08:17 Rocuronium [place] (Zemuron) Confirm Administered Dose 50 mg .ROUTE .STK-MED ONE Stop: 10/21/17 04:57 Rocuronium [place] (Zemuron) Confirm Administered Dose 50 mg .ROUTE .STK-MED ONE Stop: 10/21/17 07:10 Scopolamine (Transderm-Scop) Confirm Administered Dose 1.5 mg .ROUTE .STK-MED ONE Stop: 10/21/17 08:41 Sodium Chloride (Saline Flush) 10 ml FLUSH ASDIRECTED PRN PRN Reason: Keep Vein Open Last Admin: 10/20/17 21:02 Dose: 10 ml Succinylcholine Chloride (Quelicin) Confirm Administered Dose 200 mg .ROUTE .STK -MED ONE Stop: 10/21/17 04:57 Succinylcholine Chloride (Quelicin) Confirm Administered Dose 200 mg .ROUTE .STK -MED ONE Stop: 10/21/17 08:06 Tamsulosin HCl (Flomax) 0.4 mg PO ONETIME ONE Stop: 10/23/17 17:01 Last Admin: 10/23/17 17:10 Dose: 0.4 mg - Exam Quality Assessment: No: Supplemental Oxygen General: Alert, Oriented, Cooperative, No Acute Distress Neck: Supple Lungs: Clear to Auscultation, Normal Respiratory Effort Cardiovascular: Regular Rate, Regular Rhythm - Problem List & Annotations (1) Hypoxia SNOMED Code(s): 020991841 Code(s): R09.02 - HYPOXEMIA Status: Acute Current Visit: Yes - My Orders Last 24 Hours: My Active Orders 10/27/17 11:38 DC Samano Catheter [Urinary Catheter Removal] [RC] Per Unit Routine 10/27/17 11:39 cefTRIAXone [Rocephin] 1 gm Sodium Chloride 0.9% [Normal Saline] 50 ml IV ONETIME 10/27/17 11:40 UA W/MICROSCOPIC [URIN] Routine 10/27/17 11:42 Communication Order [RC] ROUTINE
[2017-10-27] MEDS ORDERED: cefTRIAXone 1 GM in Sodium Chloride 0.9% 50 ML IV ONE (12:00)
--- NOTE | 2017-10-27 14:21 | PCM.CONSN ---
- General Info Date of Service: 10/27/17 - Review of Systems General: Denies: Fever Genitourinary: Reports: Dysuria Systems Review Comment:: No acute events overnight. She is off supplemental oxygen and does not endorse shortness of breath. She does endorse dysuria and there does appear to be some debris in the urine this morning. No fevers. - Patient Data Vitals - Most Recent: Last Vital Signs Temp 36.6 C 10/27/17 11:00 Pulse 117 H 10/27/17 11:00 Resp 18 10/27/17 11:00 BP 111/74 10/27/17 11:00 Pulse Ox 97 10/27/17 11:00 Weight - Most Recent: 72.983 kg I&O - Last 24 Hours: Intake & Output 10/26/17 10/27/17 10/27/17 22:59 06:59 14:59 Intake Total 820 170 480 Output Total 1600 1828 250 Balance -780 -1658 230 Lab Results Last 24 Hours: Laboratory Results - last 24 hr 10/27/17 10/27/17 Range/Units 04:20 04:20 WBC 7.1 (4.5-11.0) K/uL RBC 3.29 L (3.30-5.50) M/uL Hgb 10.2 L (12.0-15.0) g/dL Hct 30.3 L (36.0-48.0) % MCV 92 (80-98) fL MCH 31 (27-31) pg MCHC 34 (32-36) % Plt Count 288 (150-400) K/uL Sodium 138 L (140-148) mmol/L Potassium 4.0 (3.6-5.2) mmol/L Chloride 99 L (100-108) mmol/L Carbon Dioxide 33 H (21-32) mmol/L Anion Gap 10.0 (5.0-14.0) mmol/L BUN 8 (7-18) mg/dL Creatinine 0.8 (0.6-1.0) mg/dL Est Cr Clr Drug Dosing 74.98 mL/min Estimated GFR (MDRD) > 60 (>60) Glucose 103 (74-106) mg/dL Calcium 8.8 (8.5-10.1) mg/dL Phosphorus 3.6 (2.5-4.9) mg/dL Total Bilirubin 0.2 (0.2-1.0) mg/dL AST 22 (15-37) U/L ALT 37 (12-78) U/L Alkaline Phosphatase 85 (46-116) U/L Total Protein 5.7 L (6.4-8.2) g/dL Albumin 2.4 L (3.4-5.0) g/dL Globulin 3.3 (2.3-3.5) g/dL Albumin/Globulin Ratio 0.7 L (1.2-2.2) Med Orders - Current: Current Medications Acetaminophen (Tylenol) 650 mg PO Q6H [facility] Last Admin: 10/27/17 13:33 Dose: 650 mg Albuterol/Ipratropium (Duoneb 3.0-0.5 Mg/3 Ml) 3 ml INH ASDIRECTED PRN PRN Reason: BREATHING Last Admin: 10/23/17 06:53 Dose: 3 ml Celecoxib (Celebrex) 200 mg PO DAILY@0800 [facility] Last Admin: 10/27/17 08:21 Dose: 200 mg Gabapentin (Neurontin) 300 mg PO TID [facility] Last Admin: 10/27/17 13:33 Dose: 300 mg Heparin Sodium (Porcine) (Heparin Sodium) 5,000 units SUBCUT Q12H [facility] Last Admin: 10/27/17 03:01 Dose: 5,000 units Heparin Sodium (Porcine) (Heparin Lock Flush 100 Units/Ml) 500 units FLUSH ASDIRECTED PRN PRN Reason: Keep Vein Open Last Admin: 10/27/17 06:01 Dose: 500 units Hydrochlorothiazide (Hydrochlorothiazide) 25 mg PO DAILY [facility] Last Admin: 10/27/17 08:22 Dose: 25 mg Hydromorphone HCl (Dilaudid) 2 - 4 mg PO Q4H PRN PRN Reason: Pain Last Admin: 10/26/17 12:50 Dose: 2 mg Magnesium Sulfate 2 gm/ Premix 50 mls @ 25 mls/hr IV Q6H [facility] Stop: 10/29/17 05:59 Last Admin: 10/27/17 10:13 Dose: 25 mls/hr Lisinopril (Prinivil) 20 mg PO DAILY [facility] Last Admin: 10/27/17 08:21 Dose: 20 mg Magnesium Hydroxide (Milk Of Magnesia) 30 ml PO BID PRN PRN Reason: Constipation Last Admin: 10/25/17 15:15 Dose: 30 ml Metoclopramide HCl (Reglan) 10 mg IVPUSH Q6H PRN PRN Reason: NAUSEA NOT CONTROL BY ZOFRAN Last Admin: 10/21/17 17:02 Dose: 10 mg Naloxone HCl (Narcan) 0.1 mg IVPUSH Q2M PRN PRN Reason: Respiratory Distress Ondansetron HCl (Zofran) 4 mg IVPUSH Q4H PRN PRN Reason: Nausea/Vomiting Last Admin: 10/21/17 14:24 Dose: 4 mg Ondansetron HCl (Zofran Odt) 4 mg PO Q4H PRN PRN Reason: Nausea/Vomiting Last Admin: 10/25/17 09:53 Dose: 4 mg Pantoprazole Sodium (Protonix Granules) 40 mg PO Q24H [facility] Last Admin: 10/26/17 16:26 Dose: 40 mg Senna/Docusate Sodium (Senna Plus) 2 tab PO BID [facility] Last Admin: 10/27/17 08:22 Dose: Not Given Tamsulosin HCl (Flomax) 0.4 mg PO BEDTIME [facility] Last Admin: 10/26/17 20:43 Dose: 0.4 mg Discontinued Medications Albuterol/Ipratropium (Duoneb 3.0-0.5 Mg/3 Ml) 3 ml INH Q6H [facility] Last Admin: 10/21/17 14:36 Dose: Not Given Albuterol/Ipratropium (Duoneb 3.0-0.5 Mg/3 Ml) 3 ml INH Q6H [facility] Last Admin: 10/27/17 09:36 Dose: 3 ml Bupivacaine HCl (Marcaine 0.5%) Confirm Administered Dose 50 ml .ROUTE .STK-MED ONE Stop: 10/23/17 06:40 Last Admin: 10/23/17 08:23 Dose: 12 ml Ropivacaine 38 ml/Dexamethasone 8 mg/Epinephrine HCl 0.4 mg/ Sodium Chloride 39.6 ml 0 ml NERVRT ASDIRECTED [facility] Last Admin: 10/21/17 07:23 Dose: 80 syringe Ropivacaine 38 ml/Dexamethasone 8 mg/Epinephrine HCl 0.4 mg/ Sodium Chloride 39.6 ml 0 ml NERVRT ONETIME ONE Stop: 10/23/17 08:01 Last Admin: 10/23/17 08:17 Dose: 100 syringe Cyanocobalamin (Vitamin B12) 1,000 mcg IM ONETIME ONE Stop: 10/23/17 09:01 Last Admin: 10/23/17 10:22 Dose: 1,000 mcg Dexamethasone (Dexamethasone) Confirm Administered Dose 4 mg .ROUTE .STK-MED ONE Stop: 10/21/17 04:57 Diphenhydramine HCl (Benadryl) 25 - 50 mg IVPUSH Q4H PRN PRN Reason: ITCHING Fentanyl Citrate (Fentanyl) Confirm Administered Dose 500 mcg .ROUTE .STK-MED ONE Stop: 10/21/17 04:57 Furosemide (Lasix) 40 mg IVPUSH ONETIME ONE Stop: 10/24/17 14:31 Last Admin: 10/24/17 14:42 Dose: 40 mg Furosemide (Lasix) 40 mg IVPUSH Q8H [facility] Stop: 10/25/17 07:01 Last Admin: 10/25/17 06:11 Dose: 40 mg Furosemide (Lasix) 20 mg IVPUSH Q8H [facility] Stop: 10/26/17 06:01 Last Admin: 10/26/17 05:38 Dose: 20 mg Furosemide (Lasix) 20 mg IVPUSH Q8H [facility] Stop: 10/26/17 22:01 Last Admin: 10/26/17 21:19 Dose: 20 mg Glycopyrrolate (Robinul) Confirm Administered Dose 1 mg .ROUTE .STK-MED ONE Stop: 10/21/17 04:57 Haloperidol Lactate (Haldol) 2.5 mg IVPUSH Q1H PRN PRN Reason: Agitation Last Admin: 10/21/17 20:20 Dose: 2.5 mg Heparin Sodium (Porcine) (Heparin Lock Flush 100 Units/Ml) Confirm Administered Dose 1,000 units .ROUTE .STK-MED ONE Stop: 10/21/17 05:05 Last Admin: 10/21/17 06:38 Dose: 1,000 units Heparin Sodium (Porcine) (Heparin Lock Flush 100 Units/Ml) Confirm Administered Dose 500 units .ROUTE .STK-MED ONE Stop: 10/22/17 04:29 Last Admin: 10/22/17 04:42 Dose: Not Given Hydromorphone HCl (Dilaudid) 0.5 mg IVPUSH ONETIME ONE Stop: 10/20/17 20:46 Last Admin: 10/20/17 20:52 Dose: 0.5 mg Hydromorphone HCl (Dilaudid Economics Teacher 15 Mg In Ns 30 Ml) 0 mg IV ASDIRECTED PRN; Protocol PRN Reason: Pain Last Admin: 10/20/17 23:53 Dose: 15 mg Hydroxyzine HCl (Vistaril) 75 - 100 mg IM Q4H PRN PRN Reason: pain Sodium Chloride (Normal Saline) 1,000 mls @ 999 mls/hr IV ASDIRECTED [facility] Last Admin: 10/20/17 21:47 Dose: 999 mls/hr Sodium Chloride (Normal Saline) 80 mls @ 3 mls/sec IV ASDIRECTED [facility] Last Admin: 10/20/17 21:23 Dose: 3 mls/sec Lidocaine HCl (Xylocaine-Mpf 1%) Confirm Administered Dose 2 mls @ as directed .ROUTE .STK-MED ONE Stop: 10/20/17 20:27 Meropenem 500 mg/ Sodium (Chloride) 50 mls @ 100 mls/hr IV ONETIME ONE Stop: 10/20/17 23:44 Last Admin: 10/20/17 23:58 Dose: 100 mls/hr Sodium Chloride (Normal Saline) 1,000 mls @ 300 mls/hr IV ASDIRECTED [facility] Last Admin: 10/21/17 02:37 Dose: 300 mls/hr Lidocaine HCl/Dextrose (Lidocaine 2 Gm/D5w 500 Ml) 2 gm in 500 mls @ 22.5 mls/ hr IV .[id number] [facility] PRN Reason: 1.5 MG/MIN Stop: 10/22/17 09:00 Last Admin: 10/21/17 12:09 Dose: 1.5 mg/min, 22.5 mls/hr Dextrose/Lactated Ringer's (Dextrose 5%-Lactated Ringers) 1,000 mls @ 175 mls/ hr IV ASDIRECTED [facility] Stop: 10/22/17 13:59 Last Admin: 10/22/17 05:36 Dose: 175 mls/hr Multivitamins/Minerals 10 ml/Thiamine HCl 100 mg/ Chromium/Copper/Manganese/ Seleni/Zn 1 ml/ Dextrose/Lactated Ringer's 1,012 mls @ 174.826 mls/hr IV DAILY@ 1600 [facility] Last Admin: 10/21/17 16:09 Dose: 174.826 mls/hr Cefoxitin Sodium 2 gm/ Sodium (Chloride) 50 mls @ 100 mls/hr IV Q6H [facility] Stop: 10/22/17 11:29 Last Admin: 10/22/17 10:05 Dose: 100 mls/hr Lactated Ringer's (Ringers, Lactated) 500 mls @ 500 mls/hr IV .BOLUS ONE Stop: 10/21/17 17:29 Last Admin: 10/21/17 16:29 Dose: 500 mls/hr Acetaminophen 1,000 mg/ Premix 100 mls @ 400 mls/hr IV NOW ONE Stop: 10/21/17 20:24 Last Admin: 10/21/17 20:27 Dose: 400 mls/hr Lactated Ringer's (Ringers, Lactated) 500 mls @ 500 mls/hr IV ONETIME ONE Stop: 10/22/17 07:44 Last Admin: 10/22/17 06:49 Dose: 500 mls/hr Dextrose/Lactated Ringer's (Dextrose 5%-Lactated Ringers) 1,000 mls @ 100 mls/ hr IV ASDIRECTED [facility] Last Admin: 10/24/17 12:10 Dose: 100 mls/hr Multivitamins/Minerals 10 ml/Chromium/Copper/Manganese/Seleni/Zn 1 ml/ Dextrose/ Lactated Ringer's 1,011 mls @ 100 mls/hr IV DAILY@1600 [facility] Last Admin: 10/23/17 15:51 Dose: 100 mls/hr Magnesium Sulfate 2 gm/ Premix 50 mls @ 25 mls/hr IV Q6HR [facility] Stop: 10/25/17 05:59 Last Admin: 10/25/17 03:03 Dose: 25 mls/hr Potassium Phosphate 25 mmole/ (Sodium Chloride) 108.3333 mls @ 36 mls/hr IV Q3H [facility] Stop: 10/22/17 18:59 Last Admin: 10/22/17 18:36 Dose: 36 mls/hr Lactated Ringer's (Ringers, Lactated) 500 mls @ 500 mls/hr IV .BOLUS ONE Stop: 10/22/17 14:44 Last Admin: 10/22/17 14:14 Dose: 500 mls/hr Lactated Ringer's (Ringers, Lactated) 500 mls @ 500 mls/hr IV .BOLUS ONE Stop: 10/22/17 17:14 Last Admin: 10/22/17 16:20 Dose: 500 mls/hr Potassium Chloride 20 meq/Lidocaine HCl 2 ml/ Sodium Chloride 112 mls @ 50 mls/ hr IV Q2H [facility] Stop: 10/26/17 14:29 Last Admin: 10/26/17 14:21 Dose: 50 mls/hr Ceftriaxone Sodium 1 gm/ (Sodium Chloride) 50 mls @ 100 mls/hr IV ONETIME ONE Stop: 10/27/17 12:29 Last Admin: 10/27/17 12:40 Dose: 100 mls/hr Iohexol (Omnipaque-300) 50 ml PO . DIRECTED PRN PRN Reason: RADIOLOGY EXAM Stop: 10/23/17 04:01 Last Admin: 10/22/17 03:57 Dose: 50 ml Iopamidol (Isovue-300 (61%)) 100 ml IV . DIRECTED [facility] Last Admin: 10/20/17 21:23 Dose: 100 ml Ketamine HCl (Ketalar) 26 mg IV ASDIRECTED [facility] Ketamine HCl (Ketalar) 36 mg IV ASDIRECTED [facility] Labetalol HCl (Normodyne) 5 - 15 mg IVPUSH Q1H PRN PRN Reason: SBP over 160 OR DBP over 95 Lidocaine HCl (Xylocaine 2%) 90 mg IVPUSH ONETIME ONE Stop: 10/21/17 07:31 Last Admin: 10/21/17 12:08 Dose: Not Given Lidocaine/Epinephrine (Xylocaine 1% With Epinephrine 1:100,000) Confirm Administered Dose 50 ml .ROUTE .STK-MED ONE Stop: 10/23/17 06:40 Last Admin: 10/23/17 08:24 Dose: 12 ml Meropenem (Merrem) Confirm Administered Dose 500 mg .ROUTE .STK-MED ONE Stop: 10/21/17 05:43 Meropenem (Merrem) Confirm Administered Dose 500 mg .ROUTE .STK-MED ONE Stop: 10/21/17 07:39 Last Admin: 10/21/17 07:49 Dose: 500 mg Meropenem (Merrem) Confirm Administered Dose 500 mg .ROUTE .STK-MED ONE Stop: 10/23/17 06:40 Last Admin: 10/23/17 08:24 Dose: 500 mg Miscellaneous Information (Remove Patch) 1 ea TRDERM ONETIME ONE Stop: 10/23/17 10:01 Last Admin: 10/23/17 10:23 Dose: Not Given Naloxone HCl (Narcan) 0.4 mg IVPUSH Q2M PRN PRN Reason: Respiratory Distress Neostigmine Methylsulfate (Neostigmine) Confirm Administered Dose 5 mg .ROUTE .STK-MED ONE Stop: 10/21/17 04:57 Scopolamine Patch (Check) 1 each TOP DAILY [facility] Stop: 10/23/17 11:01 Last Admin: 10/23/17 10:23 Dose: Not Given Ondansetron HCl (Zofran) 4 mg IVPUSH ONETIME ONE Stop: 10/20/17 19:25 Last Admin: 10/20/17 20:56 Dose: 4 mg Ondansetron HCl (Zofran) Confirm Administered Dose 4 mg .ROUTE .STK-MED ONE Stop: 10/21/17 04:57 Pantoprazole Sodium (Protonix Iv) 40 mg IVPUSH Q24H [facility] Last Admin: 10/23/17 15:51 Dose: 40 mg Potassium Chloride (Klor-Con M20) 40 meq PO ONETIME ONE Stop: 10/26/17 08:28 Last Admin: 10/26/17 11:03 Dose: Not Given Propofol (Diprivan 20 Ml) Confirm Administered Dose 200 mg .ROUTE .STK-MED ONE Stop: 10/21/17 04:57 Propofol (Diprivan 20 Ml) Confirm Administered Dose 200 mg .ROUTE .STK-MED ONE Stop: 10/23/17 08:17 Propofol (Diprivan 20 Ml) Confirm Administered Dose 200 mg .ROUTE .STK-MED ONE Stop: 10/23/17 08:17 Rocuronium [place] (Zemuron) Confirm Administered Dose 50 mg .ROUTE .STK-MED ONE Stop: 10/21/17 04:57 Rocuronium [place] (Zemuron) Confirm Administered Dose 50 mg .ROUTE .STK-MED ONE Stop: 10/21/17 07:10 Scopolamine (Transderm-Scop) Confirm Administered Dose 1.5 mg .ROUTE .STK-MED ONE Stop: 10/21/17 08:41 Sodium Chloride (Saline Flush) 10 ml FLUSH ASDIRECTED PRN PRN Reason: Keep Vein Open Last Admin: 10/20/17 21:02 Dose: 10 ml Succinylcholine Chloride (Quelicin) Confirm Administered Dose 200 mg .ROUTE .STK -MED ONE Stop: 10/21/17 04:57 Succinylcholine Chloride (Quelicin) Confirm Administered Dose 200 mg .ROUTE .STK -MED ONE Stop: 10/21/17 08:06 Tamsulosin HCl (Flomax) 0.4 mg PO ONETIME ONE Stop: 10/23/17 17:01 Last Admin: 10/23/17 17:10 Dose: 0.4 mg - Exam Quality Assessment: No: Supplemental Oxygen General: Alert, Oriented, Cooperative, No Acute Distress Neck: Supple Lungs: Clear to Auscultation, Normal Respiratory Effort Cardiovascular: Regular Rate, Regular Rhythm Extremities: No Pedal Edema Psy/Mental Status: Alert, Normal Affect Consult PN Assessment/Plan POD#: 6 Procedures: Procedures ASSAY ALKALINE PHOSPHATASE (06/14/13) ASSAY OF MAGNESIUM (07/02/17) BILIRUBIN TOTAL (06/14/13) COMP SCREEN MAMMOGRAM ADD-ON (07/23/15) COMPLETE CBC AUTOMATED (06/14/13) COMPLETE CBC W/AUTO DIFF WBC (07/03/17) COMPREHEN METABOLIC PANEL (02/09/17) CT HEAD/BRAIN W/O DYE (02/09/17) CULTURE SCREEN ONLY (07/02/17) EGD BIOPSY SINGLE/MULTIPLE (07/02/17) EGD REMOVE LESION SNARE (07/02/17) ELECTRICAL STIMULATION (06/28/17) EMERGENCY DEPT VISIT (07/03/17) EMERGENCY DEPT VISIT (02/09/17) EMERGENCY DEPT VISIT (02/09/17) EXTREMITY STUDY (01/28/17) GAIT TRAINING THERAPY (02/08/17) INJECT TRIGGER POINTS 3/> (03/02/17) LAPAROSCOPIC CHOLECYSTECTOMY (06/14/13) LIPID PANEL (03/02/14) MANUAL THERAPY 1/> REGIONS (06/28/17) MEASURE BLOOD OXYGEN LEVEL (08/22/17) METABOLIC PANEL TOTAL CA (07/02/17) MRI BRAIN STEM W/O DYE (02/11/17) MRI CHEST SPINE W/O & W/DYE (10/17/17) MRI CHEST SPINE W/O DYE (03/09/17) MRI JNT OF LWR EXTRE W/O DYE (09/30/16) MRI LOWER EXTREMITY W/O DYE (08/17/17) MRI LUMBAR SPINE W/O & W/DYE (10/17/17) MRI LUMBAR SPINE W/O DYE (09/30/16) MRI NECK SPINE W/O & W/DYE (10/17/17) MRI NECK SPINE W/O DYE (02/17/17) NEUROMUSCULAR REEDUCATION (05/12/17) NJX INTERLAMINAR LMBR/SAC (03/02/17) PT EVAL LOW COMPLEX 20 MIN (10/13/16) PT EVAL MOD COMPLEX 30 MIN (04/14/17) ROUTINE VENIPUNCTURE (07/03/17) THERAPEUTIC EXERCISES (06/28/17) TISSUE EXAM BY PATHOLOGIST (08/22/17) TISSUE EXAM BY PATHOLOGIST (07/02/17) TISSUE EXAM BY PATHOLOGIST (06/14/13) TISSUE EXAM BY PATHOLOGIST (06/12/13) ULTRASOUND THERAPY (06/28/17) US EXAM ABDOM COMPLETE (06/13/13) VITAMIN D 25 HYDROXY (07/02/17) X-RAY BEND ONLY L-S SPINE (10/18/16) (1) Hypoxia SNOMED Code(s): 232660557 Code(s): R09.02 - HYPOXEMIA Current Visit: Yes Problem List Initiated/Reviewed/Updated: Yes My Orders Last 24 Hours: My Active Orders 10/27/17 11:40 UA W/MICROSCOPIC [URIN] Routine 10/27/17 11:42 Communication Order [RC] ROUTINE Plan: ASSESSMENT AND PLAN - Hypoxia - now resolved with diuresis. Diuresis is complete and catheter can be removed. -monitor volume status -saline lock IV -Daily weights Dysuria - some debris in the catheter. No fever or elevation of her white count. -Urine culture Gastric perforation status post surgical repair with gastrectomy and Sathish-en-Y reconfiguration - pain well-controlled on postoperatively. Did have bowel movement yesterday. -Postoperative cares per surgical team Disposition - she should be safe for discharge tomorrow. If her urine culture is growing a bacteria she will need some oral antibiotics. Fei Funes M.D.
[2017-10-27] MEDS: Pantoprazole 40 MG Delayed-Release Granules 1 Packet PO SCH (16:02)
[2017-10-27] MEDS: Tamsulosin 0.4 MG Cap.ER PO SCH (20:35)
[2017-10-28] MEDS: Acetaminophen Soln 650 MG/20.3 ML UD Cup PO SCH ×2 (02:26→08:49)
[2017-10-28] MEDS: Magnesium Sulfate/Water 2 GM in Premix Bag 1 BAG IV SCH (03:38)
[2017-10-28] MEDS: Heparin Sodium 5,000 Units/ML Vial SUBCUT SCH (03:38)
[2017-10-28 08:09] VITALS: BP 121/71
[2017-10-28] MEDS: Lisinopril 20 MG Tab PO SCH (08:49)
[2017-10-28] MEDS: Hydrochlorothiazide 25 MG Tab PO SCH (08:49)
[2017-10-28] MEDS: Celecoxib 200 MG Cap PO SCH (08:50)
[2017-10-28] MEDS: Gabapentin 250 MG/5 ML Solution ML 470 ML Bottle PO SCH (08:53)
[2017-10-28] MEDS ORDERED: Cephalexin 250 MG Cap PO ONE (10:30)
--- NOTE | 2017-10-28 16:13 | OR ---
DATE OF PROCEDURE: 10/21/2017 PREOPERATIVE DIAGNOSES: 1. Limited peripheral venous access. 2. Probable gastric perforation. 3. Recurrent painful left ovarian cyst. POSTOPERATIVE DIAGNOSES: 1. Limited peripheral venous access. 2. Gastric perforation associated with massive gastric distention secondary to gastroparesis. 3. Recurrent painful left ovarian cyst. PROCEDURES: 1. Insertion of the right internal jugular vein triple-lumen catheter (01182). 2. Exploratory laparotomy with takedown of Stefano fundoplication: a. Total gastrectomy with Sathish-en-Y gastrojejunostomy (28722). b. Left salpingo-oophorectomy (64465). ANESTHESIA: General. SENIOR MARKET INTELLIGENCE CONSULTANT: Yamilex Clinton PA-C and Domitila Sexton MS3. INDICATIONS FOR PROCEDURE: This 42-year-old presenting with an acute abdomen with free air. It has been notable that the patient has been having postprandial bloating since a recent Stefano fundoplication and initial CAT scan had a quite massive gastric distention. The patient most likely has a perforation somewhere in the stomach related to the gastroparesis and associated distention versus some sort of complication related to the Stefano fundoplication. Plan is to proceed with exploratory laparotomy and procedures as indicated. If this perforation is related to massive gastric distention, it would probably best off doing more or less a total gastrectomy with Sathish-en-Y reconstruction, which would obviate the patient's problems with recent dysphagia as well as reflux and also would provide some effects in terms of weight loss, which would be generally beneficial to the patient. She also has quite limited peripheral venous access and central venous line will be inserted after induction of the anesthetic. Potential risks of the procedure including bleeding, infection, leaks from various GI tract closures, possible strictures developing at the Sathish- en-Y anastomosis whether that be to the esophagus or proximal stomach in the jejunum as well as the possibility of cardiopulmonary, septic, or hemorrhagic complications leading to , and the patient and mother where potential risks regarding central line insertion as well and wished to proceed. DETAILS OF PROCEDURE: The patient was taken to the operating room and placed in a supine position. After general endotracheal anesthesia was induced, the upper chest and neck areas were prepped and draped. Additionally, the left subclavian and subsequently the left jugular portions were initiated. At no point in the left subclavian vein did we get any return of blood. We did get a return of blood nicely in the internal jugular vein on the left side, but the guidewire would not pass, thus to the right internal jugular area where the right internal jugular vein was easily cannulated. A guidewire passed and over that a triple-lumen catheter positioned. Good in and outflow was noted. Ports were flushed with heparinized saline, and the catheter was sutured to skin with some 3-0 silk stitch. Subsequent chest x-ray showed good catheter position without evident complications. At this point, a Samano catheter had been inserted and the abdomen prepped and draped along with a nasogastric tube having been placed previously in the preoperative phase. An upper midline incision from the xiphoid, more or less to the umbilicus was made and carried down through the skin and subcutaneous tissue and fascia for its length. Upon entering the peritoneal cavity, a small amount of free air was present. Examination of the stomach showed at this point still quite a bit in the way of distention with some old food present as well as some remaining air. This was gradually manipulated such that most of that was evacuated. There was some slight staining of the lesser omental tissues in the mid lesser curvature indicating that being the likely point of perforation. The fundoplication area although acutely inflamed due to recent nature of the surgery, did not appear to have a complication associated with it. There does appear to be a gastric perforation somewhere along the lesser curvature, again likely related to the gastroparesis associated gastric distention. This confirmed the need to proceed with a total or near total gastrectomy. At this point, the Stefano fundoplication was gradually freed up from the diaphragm. There was quite a bit of inflammation in the area of the esophagogastric junction and we at this point, more or less encircled the point just above the Stefano fundoplication. At that point, it had been manipulated down such that the anastomosis would be more or less at the esophagogastric junction. This was divided with YASH black loads. The greater and then lesser omental tissues were then taken down with mesenteric YASH loads. Similarly, the tissue behind the distal antrum was freed up from the tissues overlying the pancreas with electrocautery and the dissection then continued down to a point just below the pylorus. The latter was then divided with a YASH curved purple load and the duodenal stump closure site appeared to be very secure. With the vasculature having all been divided, the stomach specimen was then delivered from the field. For reconstruction of this point, the Sathish-en-Y reconstruction appeared to be most appropriate. The small bowel was identified at the ligament of Treitz and traced out roughly 25 cm distal to that point, was divided with a YASH stapler and then traced out additional 100 cm where the [id number] enteroenterostomy was accomplished with an internal firing of the Endo-YASH 60 mm stapler. The common opening was then closed transversely with the same stapler and the angle was anastomosed with mesenteric defect were approximated with some 3-0 Vicryl stitch and was also then subsequently reinforced with fibrin sealant. The Sathish limb came up through an antecolic approach quite easily and at that point, the divided end of the esophagogastric junction was opened and the anvil of a 25 mm EEA stapler placed. This was then re-stapled with a YASH black load and the tip of the anvil brought out through the staple line, divided, and the Sathish limb was then opened, main body EEA stapler was passed several centimeters into the Sathish limb, attached to the anvil and united with it, thus creating the gastrojejunostomy. Upon removal of the stapler, double donuts of mucosa were noted within it. The anastomosis was then reinforced with some interrupted 3-0 Vicryl seromuscular stitch along with fibrin sealant. The anastomosis overall appeared to be very satisfactory. Some stitches of the mesentery of the Sathish limb to the overlying omentum and transverse colon were also then placed with 3-0 Vicryl to help close that mesenteric defect. At this point, attention was taken to the left salpingo-oophorectomy. The patient was noted to have some problems with recurrent left ovarian cyst. She had previously undergone a right salpingo-oophorectomy at the time of hysterectomy and has had several problems with cysts causing discomfort over the recent past, and as noted preoperatively with the patient and her mother, a decision was made to remove this ovary as well to avoid for future problems. They are both aware that she will become menopausal from the hormonal standpoint with removal of that ovary. The ovary was easily brought up into the field and the infundibulopelvic ligament along with portion of the uterine tube were then divided with a YASH abdullahi load and the specimen consisting of the ovary and a portion of the uterine tube was then delivered from the field. At this point, no further problems noted. The abdomen was irrigated with an antibiotic- containing saline solution. A Titus-Michel drain was taken through a stab wound in the left subcostal area and brought up against the gastrojejunostomy and at that point, the midline fascia was approximated with a #2 Vicryl stitch with some adherent contamination related to the gastric perforation as well as open small bowel. We decided to leave the skin and subcutaneous tissue open for planned delayed primary closure in 48 hours. The patient was taken to the recovery room in satisfactory condition. Physician certified medical technician assistant, Yamilex Clinton, played an essential role in assisting in this case helping to position the patient, retract structures as needed as well as suturing and cutting sutures when indicated. Her presence improved the patient's safety and decreased operative time. Ubaldo Mancera MD /[id number]
--- NOTE | 2017-10-29 03:49 | DISCH ---
ADMISSION DIAGNOSES: Severe abdominal pain, hypertension, Zavala's esophagus, history of laparoscopic Stefano, chronic back pain, chronic neck pain, hip pain, scoliosis, kyphosis, bulging lumbar disk, bursitis left hip, bilateral torn labrum, chronic headaches, Chiari malformation, developmental delay, learning disability, and obesity. DISCHARGE DIAGNOSES: 1. 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 Date of surgery 10/20/2017. Surgeon, Ubaldo Mancera M.D. 2. Postoperative urinary retention requiring placement of Samano catheter. 3. Fluid overload with dyspnea and hypoxia. 4. Delayed primary closure. HISTORY: Roxi Patterson is a 42-year-old female, who is post status lap Stefano. She developed severe abdominal pain and left shoulder pain, presented to the emergency room. After preoperative evaluation, discussion of possible risks and possible complications, she wished to proceed with surgical procedure. HOSPITAL COURSE: Roxi had her surgery on 10/20/2017. She had no operative complications. On postop day #1, she had some confusion and agitation that improved after stopping the lidocaine. She also had a single dose of Haldol. Upper GI looked good, and she was started on a step-2 diet with no solid. Potassium, magnesium, and phosphate were supplemented IV. On 10/23/2017, she had delayed primary closure. Oxygenation was slightly marginal, so she was changed to an Acapella. On 10/24/2017, she had some difficulty with shortness of breath, started on Lasix, had an Internal Medicine consult, and Samano catheter was replaced due to urine retention. She was also given some bowel stimulation. On , Samano catheter remained in. She was given Lasix for fluid overload secondary to hypoxia. Potassium and magnesium were replaced. On 10/27/2017, Samano catheter was removed and she was voiding without any difficulty, and slept last night without any supplemental oxygen and her oxygen saturation was 94%. Vital signs have been stable. Oral intake adequate. She has received dietary instruction. Activity has been good, and she is ready to be discharged to home on 10/28/2017 without any complications. PHYSICAL EXAMINATION: GENERAL: Roxi Patterson is a 42-year-old female. VITAL SIGNS: Height is 5 feet 2.99 inches. Weight is 168 pounds. TPR 98.2, 87, 16. Blood pressure 99/62. HEENT: Negative. NECK: Supple. HEART: Regular rate and rhythm. LUNGS: Clear. ABDOMEN: Aquacel dressing is on, stapled incision underneath. 4x4s will be placed and this will be removed prior to discharge. Peripheral IHSAN drain will be removed, midline drain will be left in. EXTREMITIES: Without peripheral edema. DISPOSITION: Discharged to home. CONDITION: Stable and improving. FOLLOWUP APPOINTMENT: Yamilex Clinton PA-C, on 11/04/2017 at 10:00 a.m. HOME MEDICATIONS: 1. Tylenol 650 mg oral q.6 hours, scheduled for 2 weeks, 1200 mL given. 2. Celebrex 200 mg p.o. daily, #14. 3. Zofran ODT 4 mg q.4 hours p.r.n. nausea. 4. Continue home medication of lisinopril/hydrochlorothiazide 20/25 mg 1 tablet daily. She is to discontinue vitamin D3 until after 1st postop appointment. DIET: Drink 8 to 10 glasses of water a day. Step-2 gastric bypass diet with no cereal for 2 weeks. ACTIVITY: As tolerated. No lifting greater than 10 pounds for 6 weeks. Other activity, walk around inside your house 6 times a day. Shower/bathing, may shower. DISCHARGE INSTRUCTIONS: Notify provider if any fever, increased pain, nausea, or vomiting. Wound incision care: Keep site clean and dry. Wear abdominal binder for 6 weeks and then as tolerated. Strip, empty, measure, and record IHSAN drain 4 times a day and bring record of IHSAN drain to clinic appointment. Use incentive spirometer 10 times every hour while awake.
== END 2017-10-28 11:20 | disposition home or self-care (01) | DRG 328 ==
LOC: JP.ED 16:44 → JP.2SS 22:46
PROVIDERS: ADMIT Surgery; ATTEND Surgery
PROC: 0DT60ZZ Resection of Stomach, Open Approach (ICD-10-PCS; principal; 2017-10-21)
PROC: 0UT60ZZ Resection of Left Fallopian Tube, Open Approach (ICD-10-PCS; 2017-10-21)
PROC: 0UT10ZZ Resection of Left Ovary, Open Approach (ICD-10-PCS; 2017-10-21)
PROC: 0D160ZA Bypass Stomach to Jejunum, Open Approach (ICD-10-PCS; 2017-10-21)
PROC: 02HV33Z Insertion of Infusion Device into Superior Vena Cava, Percutaneous Approach (ICD-10-PCS; 2017-10-21)
PROC: 0WQF0ZZ Repair Abdominal Wall, Open Approach (ICD-10-PCS; 2017-10-23)
PROC: 3E0T3BZ Introduction of Anesthetic Agent into Peripheral Nerves and Plexi, Percutaneous Approach (ICD-10-PCS; 2017-10-23)
DX: K66.8 Other specified disorders of peritoneum (principal); I10 Essential (primary) hypertension; G93.5 Compression of brain; R10.10 Upper abdominal pain, unspecified; M25.512 Pain in left shoulder; K31.84 Gastroparesis; K31.89 Other diseases of stomach and duodenum; N83.202 Unspecified ovarian cyst, left side; E87.70 Fluid overload, unspecified; Z48.1 Encounter for planned postprocedural wound closure; R09.02 Hypoxemia; R30.0 Dysuria; F81.9 Developmental disorder of scholastic skills, unspecified; M54.9 Dorsalgia, unspecified; G89.29 Other chronic pain; K22.70 Barrett's esophagus without dysplasia; R33.8 Other retention of urine; R45.1 Restlessness and agitation; T41.3X5A Adverse effect of local anesthetics, initial encounter; Y92.239 Unspecified place in hospital as the place of occurrence of the external cause; R41.0 Disorientation, unspecified; M54.2 Cervicalgia; M25.552 Pain in left hip; M25.551 Pain in right hip; Z87.19 Personal history of other diseases of the digestive system; E87.6 Hypokalemia; E83.42 Hypomagnesemia; E83.39 Other disorders of phosphorus metabolism; Z88.8 Allergy status to other drugs, medicaments and biological substances
CPT/HCPCS: 36415; 74022 ×2; 74177; 80053; 83690; 84484; 85025; 86140; 93005; 96361; 96374; 96375; 99284; 99285; J1170; J2405; J7030; J7040 ×2; J7050; Q9967; 71045; 71045-26; 74240; 74240-26; 76998; 80048; 81001; 82728; 83735; 83880; 84100; 85027; 87086; 88307; 94640; 94667; 94762; A9270-GY; C9113; J0131; J0171; J0330; J0694; J0696; J1100; J1630; J1642; J1644; J1940; J2001; J2185; J2704; J2710; J2765; J2795; J3010; J3411; J3420; J3475; J3480; J3490; J7042; J7620

== ENCOUNTER 2018-08-21 08:09 | Day surgery (SDC) | payer MEDICARE ==
[~2018-08-21 08:09] MED LIST: Bacitracin Oint 1 GM U/D Packet ONE; Bupivacaine 0.5% 30 ML SDV ONE; Lidocaine 1% with EPINEPHrine 1:100,000 50 ML MDV ONE
[2018-08-21] MEDS ORDERED: Dextrose 5%-Lactated Ringers 1,000 ML IV SCH (08:45)
[2018-08-21] MEDS ORDERED: Meropenem 500 MG in Sodium Chloride 0.9% 50 ML IV ONE (09:30)
[2018-08-21] MEDS ORDERED: Bupivacaine 0.5%/EPINEPHrine 1:200,000 50 ML MDV ONE (09:45)
[2018-08-21] MEDS ORDERED: fentaNYL 100 MCG/2 ML SDV ONE (10:06)
[2018-08-21] MEDS ORDERED: Midazolam 1 MG/ML 2 ML SDV ONE (10:06)
[2018-08-21] MEDS ORDERED: Propofol 200 MG/20 ML SDV ONE (10:06)
[2018-08-21] MEDS ORDERED: Lidocaine 1% 50 ML MDV ONE (10:14)
[2018-08-21 11:51] VITALS: BP 127/78
--- NOTE | 2018-08-28 14:21 | OR ---
DATE OF PROCEDURE: 08/21/2018 PREOPERATIVE DIAGNOSIS: Infected epidermoid cyst of right earlobe. POSTOPERATIVE DIAGNOSIS: Infected epidermoid cyst of right earlobe. OPERATIVE PROCEDURE: Excision of infected epidermoid cyst of right earlobe with layered closure ([id number]). ANESTHESIA: Local plus IV sedation. INDICATIONS FOR PROCEDURE: This is a 42-year-old presenting with an infected epidermoid cyst located in the right earlobe. This had drained spontaneously a few days ago and now has decreased in size significantly, and plan is to proceed with excision of this. We will plan a closure of the skin, although the patient and mother are worried that this may need to be opened at some point should some recurrent infection occur in the postoperative period. Potential risks including bleeding, infection, cosmetic deformity, and such were reviewed, and the patient and mother wished to proceed. DETAILS OF PROCEDURE: The patient was taken to the operating room and placed in a supine position with the head turned somewhat toward the left. The right ear and surrounding areas were then prepped and draped. The area over the cyst was then mapped out for an oblique elliptical incision to be placed on the posterior aspect of the earlobe, removing the cutaneous duct leading from the cyst. After this was anesthetized with 1% lidocaine mixed with Marcaine, the incision was made and carried down through the skin and subcutaneous tissue. We did break into the cyst content at one point, but eventually, all of the cyst contents appeared to be excised, and we were down to clean tissues circumferentially. The cyst almost was full thickness anteriorly with a small pinhole of skin being opened at that level during the course of the dissection. Following this, the area was irrigated with antibiotic-containing saline solution. Incision was closed with some 5-0 Vicryl stitch deep and then a 5-0 Prolene skin stitch. The lesion plus margin itself was measured at 8 mm and the incision length at 2.7 cm. Bacitracin was applied. The patient was taken to the recovery room in satisfactory condition. Ubaldo Mancera MD /[id number]
== END 2018-08-21 12:13 | disposition home or self-care (01) ==
LOC: JP.SDS 08:09
PROVIDERS: ATTEND Surgery
DX: L72.0 Epidermal cyst (principal); I10 Essential (primary) hypertension; E66.9 Obesity, unspecified; K22.70 Barrett's esophagus without dysplasia; Z88.8 Allergy status to other drugs, medicaments and biological substances; Z88.4 Allergy status to anesthetic agent
CPT/HCPCS: 11441; 12052; 87070; 87205; 88304; J2020; J2185; J2250; J2704; J3010; J3490; J7042; J7050

== ENCOUNTER 2018-09-18 10:08 | Day surgery (SDC) | payer MEDICARE, MEDICAID ==
[~2018-09-18 10:08] MED LIST changes: -Bacitracin Oint 1 GM U/D Packet ONE; -Lidocaine 1% with EPINEPHrine 1:100,000 50 ML MDV ONE; +Lidocaine 2% 20 ML MDV ONE; +Midazolam 1 MG/ML 2 ML SDV ONE; +Propofol 200 MG/20 ML SDV ONE; +fentaNYL 100 MCG/2 ML SDV ONE
[2018-09-18] MEDS ORDERED: Lactated Ringers 1,000 ML IV SCH (11:00)
[2018-09-18] MEDS ORDERED: ceFAZolin 2 GM in Premix Bag 1 BAG IV ONE (11:00)
[2018-09-18] MEDS ORDERED: Lidocaine 1% 2 ML ONE (11:38)
[2018-09-18] MEDS ORDERED: Lidocaine 2% 20 ML MDV ONE (12:18)
--- NOTE | 2018-09-18 13:54 | OR ---
DATE OF PROCEDURE: 09/18/2018 PREKINDERGARTEN TEACHER: None. 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 PROCEDURE: Excision of neuroma, left 3rd intermetatarsal space. ANESTHESIA: Local with IV sedation. HEMOSTASIS: Obtained with an ankle tourniquet on the left ankle at 250 mmHg. ESTIMATED BLOOD LOSS: 5 mL. MATERIALS: None. INJECTABLES: A total of 17 mL of 1:1 mixture of lidocaine 2% plain and Marcaine 0.5% plain was injected prior to prepping the foot. PATHOLOGY: Soft tissue mass was sent from the left 3rd intermetatarsal space. CONDITION: Stable. INDICATIONS FOR SURGERY: Painful neuroma, left 3rd intermetatarsal space, that was unresponsive to conservative measures. PROCEDURE IN DETAIL: The patient was brought to the operating room and placed on the operating table in a supine position. Following IV sedation, anesthesia was obtained with a total of 17 mL of 1:1 mixture of lidocaine 2% plain and Marcaine 0.5% plain. The left foot was then scrubbed, prepped, and draped in the usual aseptic manner, raised to 60 degrees for hemostasis and exsanguinated using Esmarch bandage. Tourniquet was inflated. Foot was lowered to table. Skin incision was made on the dorsal aspect of the left 3rd intermetatarsal space up to the base of the left 4th toe. The incisions were deepened through subcutaneous tissues with care taken to identify and retract all vital neurovascular structures. Following subcutaneous dissection, a Natalia was used to open up the 3rd intermetatarsal space. The distal, medial, and lateral branches of the left 3rd nerve branch were then located and the neuroma was carefully dissected out of the 3rd intermetatarsal space using a Metzenbaum using blunt and sharp dissection. It was dissected as far proximally as possible and then resected using sharp resection. The incision was then palpated to make sure none of the neuroma was left. The incision was then flushed with copious amounts of sterile saline. Subcutaneous closure was achieved with 3-0 Vicryl and skin closure with 3-0 nylon in a simple interrupted configuration. The foot was then dressed with Xeroform, 4x4s, Kerlix, and Coban. The patient was returned to recovery room with vital signs stable and vascular status intact to both feet. The patient remained nonweightbearing for the next 2-3 weeks, ambulate with knee scooter. The patient was told to go to the emergency room immediately if she has any nausea, vomiting, fever, chills, chest pain, calf pain, or difficulty breathing. Follow up with Dr. Rooney in 1 week. Seth Rooney DPM /[id number]
[2018-09-18 14:14] VITALS: BP 119/77
== END 2018-09-18 14:46 | disposition home or self-care (01) ==
LOC: JP.SDS 10:08
PROVIDERS: ATTEND Podiatrist Foot & Ankle Surgery
DX: G57.82 Other specified mononeuropathies of left lower limb (principal); I10 Essential (primary) hypertension; K21.9 Gastro-esophageal reflux disease without esophagitis; G47.33 Obstructive sleep apnea (adult) (pediatric); K22.70 Barrett's esophagus without dysplasia; Z79.899 Other long term (current) drug therapy; Z88.4 Allergy status to anesthetic agent; Z88.8 Allergy status to other drugs, medicaments and biological substances
CPT/HCPCS: 28080; J0690; J2001; J2250; J2704; J3010; J3490; J7120

== ENCOUNTER 2019-04-30 23:09 | Emergency (ER) | payer MEDICARE ==
[2019-05-01 00:23] VITALS: BP 137/96; PULSE 97
[2019-05-01] MEDS ORDERED: Ketorolac 60 MG/2 ML SDV IM ONE (00:36)
[2019-05-01] MEDS ORDERED: Baclofen 10 MG Tab PO ONE (00:36)
--- NOTE | 2019-05-01 00:43 | EDM.PDOC ---
ED HPI GENERAL MEDICAL PROBLEM - General Chief Complaint: Back Pain or Injury Stated Complaint: PAIN IN SHOULDER AND ARM Time Seen by Provider: 05/01/19 00:39 Source of Information: Reports: Patient History Limitations: Reports: No Limitations - History of Present Illness INITIAL COMMENTS - FREE TEXT/NARRATIVE: pt is having pain in the left shoulder area. She is having therapy and then will have some ablation at the pain clinic in [place]. She is chronicly uncomfortable because of the spasm. She has had gastric surgery and is not able to tlerate alot of pain meds, She does take tylenol. Onset: Gradual, Other (pt has been dealing with this but she is more uncomfortable tonight. ) Duration: Hour(s): Location: Reports: Upper Extremity, Left Associated Symptoms: Reports: No Other Symptoms Left Shoulder Pain Score (Numeric/FACES): 10 - Related Data Allergies Allergy/AdvReac Type Severity Reaction Status Date / Time lidocaine Allergy Other Verified 05/01/19 00:20 omeprazole AdvReac Intermediate Dizziness Verified 05/01/19 00:20 Home Meds: Home Meds Acetaminophen [Tylenol Childrens' Chewable] 2 - 4 tab PO Q4HR PRN 06/26/18 [ History] Cholecalciferol (Vitamin D3) [Vitamin D3] 3,000 mcg PO DAILY 06/26/18 [History] Cyanocobalamin (Vitamin B-12) [B-12] 1,000 mcg SL BID 06/26/18 [History] Venlafaxine HCl [Venlafaxine ER] 300 mg PO DAILY 06/26/18 [History] Calcium Citrate/Magnesium/D3 [Calcium Citrate Chewable Wafer] 1 tab PO DAILY [History] Folic Acid/Multivit-Min/Lutein [Multi-Vitamin Gummies] 1 tab PO DAILY 05/01/19 [ History] Sennosides/Docusate Sodium [Senna-S] 1 tab PO ASDIRECTED 05/01/19 [History] Past Medical History HEENT History: Reports: Other (See Below) Other HEENT History: heavy wax Cardiovascular History: Reports: Hypertension Respiratory History: Reports: None Gastrointestinal History: Reports: GERD, Hiatal Hernia Other Gastrointestinal History: barretts esophagus Genitourinary History: Reports: None Musculoskeletal History: Reports: Back Pain, Chronic, Neck Pain, Chronic, Other (See Below) Other Musculoskeletal History: scoliosis, kyphosis. bulging lumbar disk. bursitis left hip. bilateral torn labrum Neurological History: Reports: Headaches, Chronic, Other (See Below) Other Neuro History: chiari malformation Psychiatric History: Reports: Anxiety, Developmental Delay, Learning Disability Other Psychiatric History: learning disabled. Endocrine/Metabolic History: Reports: Obesity/BMI 30+ - Infectious Disease History Infectious Disease History: Reports: C-Difficile - Past Surgical History HEENT Surgical History: Reports: Adenoidectomy, LASIK, Myringotomy w Tube(s), Tonsillectomy, Other (See Below) Other HEENT Surgeries/Procedures: sebaccious cyst removed right ear GI Surgical History: Reports: Appendectomy, Cholecystectomy, Colonoscopy, EGD, Stefano Fundoplication, Other (See Below) Other GI Surgeries/Procedures: total gastrectomy Female Surgical History: Reports: Hysterectomy, Oophorectomy Neurological Surgical History: Reports: C-Spine Musculoskeletal Surgical History: Reports: Arthroscopic Knee, Other (See Below) Other Musculoskeletal Surgeries/Procedures:: arthroscopic hip Social & Family History - Family History Family Medical History: Noncontributory - Tobacco Use Smoking Status *Q: Never Smoker Second Hand Smoke Exposure: No - Caffeine Use Caffeine Use: Reports: None - Recreational Drug Use Recreational Drug Use: No ED ROS GENERAL - Review of Systems Review Of Systems: See Below Constitutional: Reports: No Symptoms HEENT: Reports: No Symptoms Respiratory: Reports: No Symptoms Cardiovascular: Reports: No Symptoms Endocrine: Reports: No Symptoms GI/Abdominal: Reports: No Symptoms : Reports: No Symptoms Musculoskeletal: Reports: Other ( pt has a shoulder which has alot of muscle spasm. ) Skin: Reports: No Symptoms Neurological: Reports: No Symptoms ED EXAM, UPPER BACK/NECK PAIN - Physical Exam Exam: See Below Text/Narrative:: pt arrived with pain in her left shoulder area . She has been receiving therapy . She is to have a ablation at the pain clinic Exam Limited By: No Limitations General Appearance: Alert, Anxious, Moderate Distress Ears Exam: Normal TMs Nose Exam: Normal Inspection Throat/Mouth Exam: Normal Inspection Head Exam: Atraumatic Neck Exam: Painful Range of Motion, Paraspinous Muscle Tender, Other (pt is very tender on the left side. She has aklot of muscle spasm present. ) Course - Vital Signs Last Recorded V/S: Last Vital Signs Temp 35.2 C 05/01/19 00:20 Pulse 97 05/01/19 00:20 Resp 16 05/01/19 00:20 BP 137/96 H 05/01/19 00:20 Pulse Ox 97 05/01/19 00:20 - Orders/Labs/Meds Meds: Medications Discontinued Medications Generic Name Dose Route Start Last Admin Trade Name Juwan PRN Reason Stop Dose Admin Baclofen 10 mg 05/01/19 00:36 05/01/19 00:46 Lioresal PO 05/01/19 00:37 10 mg ONETIME ONE Administration Ketorolac Tromethamine 60 mg 05/01/19 00:36 05/01/19 00:47 Toradol IM 05/01/19 00:37 60 mg ONETIME ONE Administration - Re-Assessments/Exams Free Text/Narrative Re-Assessment/Exam: 05/01/19 01:32 pt was given torodol 60mg im. She was also given baclofen 10mg . She is more comfortable. Departure - Departure Time of Disposition: 01:27 Disposition: Home, Self-Care 01 Condition: Fair Clinical Impression: Muscle spasms of neck - Discharge Information Referrals: Latisha Palumbo PA [Primary Care Provider] - Forms: ED Department Discharge Care Plan Goals: moist warm heat to area tylenol l4p--821 as needed for pain, baclofen 10 mg q8h
== END 2019-05-01 01:47 | disposition home or self-care (01) ==
LOC: JP.ED 23:09
DX: M62.838 Other muscle spasm (principal); I10 Essential (primary) hypertension; F41.9 Anxiety disorder, unspecified; E66.9 Obesity, unspecified; Z68.20 Body mass index [BMI] 20.0-20.9, adult; Z88.8 Allergy status to other drugs, medicaments and biological substances; Z79.899 Other long term (current) drug therapy
CPT/HCPCS: 96372; 99283; A9270; J1885

== ENCOUNTER 2019-05-09 20:56 | Emergency (ER) | payer MEDICARE ==
[2019-05-09 21:39] VITALS: BP 125/85; PULSE 95
--- NOTE | 2019-05-09 22:09 | EDM.PDOCBH ---
ED HPI GENERAL MEDICAL PROBLEM - General Chief Complaint: Neurological Problem Stated Complaint: BODY SHAKES Time Seen by Provider: 05/09/19 21:53 Source of Information: Reports: Patient, Family, RN Notes Reviewed History Limitations: Reports: No Limitations - History of Present Illness INITIAL COMMENTS - FREE TEXT/NARRATIVE: 43-year-old female presents emergency department today following an event at home at which time she was walking and then suddenly couldn't walk was able to get herself to the ground she believes she may have had a panic attack secondary to back spasms however by the time she returns to the emergency department she feels she is back to normal baseline. Does have an extensive past medical history as well as psychiatric history denies pain Pain Score (Numeric/FACES): 0 - Related Data Allergies Allergy/AdvReac Type Severity Reaction Status Date / Time lidocaine Allergy Other Verified 05/09/19 21:04 omeprazole AdvReac Intermediate Dizziness Verified 05/09/19 21:04 Home Meds: Home Meds Acetaminophen [Tylenol Childrens' Chewable] 2 - 4 tab PO Q4HR PRN 06/26/18 [ History] Cholecalciferol (Vitamin D3) [Vitamin D3] 3,000 mcg PO DAILY 06/26/18 [History] Cyanocobalamin (Vitamin B-12) [B-12] 1,000 mcg SL BID 06/26/18 [History] Venlafaxine HCl [Venlafaxine ER] 300 mg PO DAILY 06/26/18 [History] Calcium Citrate/Magnesium/D3 [Calcium Citrate Chewable Wafer] 1 tab PO DAILY [History] Folic Acid/Multivit-Min/Lutein [Multi-Vitamin Gummies] 1 tab PO DAILY 05/01/19 [ History] Sennosides/Docusate Sodium [Senna-S] 1 tab PO ASDIRECTED 05/01/19 [History] Baclofen 10 mg PO TID PRN 05/09/19 [History] Iron,Carbonyl [Iron Chews] 30 mg PO DAILY 05/09/19 [History] Past Medical History HEENT History: Reports: Other (See Below) Other HEENT History: heavy wax Cardiovascular History: Reports: Hypertension Gastrointestinal History: Reports: GERD, Hiatal Hernia Other Gastrointestinal History: barretts esophagus Musculoskeletal History: Reports: Back Pain, Chronic, Neck Pain, Chronic, Other (See Below) Other Musculoskeletal History: scoliosis, kyphosis. bulging lumbar disk. bursitis left hip. bilateral torn labrum Neurological History: Reports: Headaches, Chronic, Other (See Below) Other Neuro History: chiari malformation Psychiatric History: Reports: Anxiety, Developmental Delay, Learning Disability Other Psychiatric History: learning disabled. Endocrine/Metabolic History: Reports: Obesity/BMI 30+ - Infectious Disease History Infectious Disease History: Reports: Chicken Pox - Past Surgical History HEENT Surgical History: Reports: Adenoidectomy, LASIK, Myringotomy w Tube(s), Tonsillectomy, Other (See Below) Other HEENT Surgeries/Procedures: sebaccious cyst removed right ear GI Surgical History: Reports: Appendectomy, Cholecystectomy, Colonoscopy, EGD, Stefano Fundoplication, Other (See Below) Other GI Surgeries/Procedures: total gastrectomy Female Surgical History: Reports: Hysterectomy, Oophorectomy Neurological Surgical History: Reports: C-Spine Musculoskeletal Surgical History: Reports: Arthroscopic Knee, Other (See Below) Other Musculoskeletal Surgeries/Procedures:: arthroscopic hip Social & Family History - Family History Family Medical History: Noncontributory - Tobacco Use Smoking Status *Q: Never Smoker - Caffeine Use Caffeine Use: Reports: None - Recreational Drug Use Recreational Drug Use: No ED ROS GENERAL - Review of Systems Review Of Systems: See Below Constitutional: Reports: No Symptoms HEENT: Reports: No Symptoms Respiratory: Reports: No Symptoms Cardiovascular: Reports: No Symptoms GI/Abdominal: Reports: No Symptoms Psychiatric: Reports: Anxiety ED EXAM, BEHAVIORAL HEALTH - Physical Exam Exam: See Below Exam Limited By: No Limitations General Appearance: Alert, WD/WN, No Apparent Distress Respiratory/Chest: No Respiratory Distress Neurological: Alert, Normal Mood/Affect Psychiatric: Alert, Normal Affect, Normal Cognition, Normal Mood, Oriented COURSE, BEHAVIORAL HEALTH COMP - Course Vital Signs: Last Vital Signs Temp 95.0 F L 05/09/19 21:39 Pulse 95 05/09/19 21:39 Resp 15 05/09/19 21:39 BP 125/85 05/09/19 21:39 Pulse Ox 100 05/09/19 21:39 Departure - Departure Time of Disposition: 22:08 Disposition: Home, Self-Care 01 Condition: Poor Clinical Impression: Panic attack - Discharge Information Referrals: Latisha Palumbo PA [Primary Care Provider] - Additional Instructions: Continue with regular medications, keep your regular follow-up appointments with specialists and primary care - Assessment/Plan Plan: Assessment Acuity = acute Site and laterality = panic attack Etiology = unclear etiology Manifestations = none Location of injury = Home Lab values = none Plan Continue with regular medications keep regular follow-up appointments This note was dictated using V[employer] voice recognition software please call with any questions on syntax or grammar.
== END 2019-05-09 22:23 | disposition home or self-care (01) ==
LOC: JP.ED 20:56
DX: F41.0 Panic disorder [episodic paroxysmal anxiety] (principal); I10 Essential (primary) hypertension; E66.9 Obesity, unspecified; Z68.20 Body mass index [BMI] 20.0-20.9, adult; Z88.8 Allergy status to other drugs, medicaments and biological substances; Z79.899 Other long term (current) drug therapy
CPT/HCPCS: 99283; 99284

== ENCOUNTER 2020-07-16 15:39 | Inpatient (IN) | payer MEDICARE ==
[2020-07-16] MEDS ORDERED: Acetaminophen 650 MG Supp RECTAL PRN (16:06)
[2020-07-16] MEDS ORDERED: hydrOXYzine HCL 100 MG/2 ML SDV IM PRN (16:07)
[2020-07-16] MEDS ORDERED: Sodium Chloride 0.9% 10 ML Syringe FLUSH PRN (16:14)
[2020-07-16] MEDS ORDERED: MVI, Adult with Vitamin K 10 ML, Chromium/Copper/Mang/Selen/Zn 1 ML in Lactated Ringers... IV ONE ×3 (16:30)
[2020-07-16] MEDS: Hyoscyamine 0.125 MG Tab.SL SL SCH ×2 (19:45→19:48)
[2020-07-16] MEDS: Pantoprazole 40 MG Vial IV SCH (19:48)
[2020-07-16] MEDS: Magnesium Sulfate/Water 2 GM/50 ML BAG IV SCH ×2 (19:48→23:28)
[2020-07-16] MEDS ORDERED: Dextrose 5%-Lactated Ringers 1,000 ML IV SCH (20:30)
[2020-07-17] MEDS: Pantoprazole 40 MG Vial IV SCH ×2 (05:17→17:15)
[2020-07-17] MEDS: Magnesium Sulfate/Water 2 GM/50 ML BAG IV SCH ×3 (05:17→17:14)
[2020-07-17] MEDS: Acetaminophen 325 MG Tab PO PRN (05:22)
[2020-07-17] MEDS ORDERED: Bupivacaine 0.5% 50 ML MDV ONE (06:51)
[2020-07-17] MEDS ORDERED: Lidocaine 1% with EPINEPHrine 1:100,000 50 ML MDV ONE (06:51)
[2020-07-17] MEDS ORDERED: fentaNYL 100 MCG/2 ML SDV ONE ×2 (07:09→08:59)
[2020-07-17] MEDS ORDERED: Midazolam 1 MG/ML 2 ML SDV ONE ×2 (07:09→08:59)
[2020-07-17] MEDS ORDERED: Propofol 200 MG/20 ML SDV ONE ×2 (07:09→08:59)
[2020-07-17] MEDS: Hyoscyamine 0.125 MG Tab.SL SL SCH ×4 (07:37→19:20)
[2020-07-17] MEDS: Glycopyrrolate 0.2 MG/ML 2 ML SDV IVPUSH ONE ×2 (09:09→12:47)
[2020-07-17] MEDS ORDERED: Lactated Ringers 1,000 ML ONE (09:46)
--- NOTE | 2020-07-17 11:24 | PN ---
DATE OF SERVICE: 07/17/2020 SUBJECTIVE: Roxi was admitted as an inpatient yesterday, 07/16/2020, mid afternoon as soon as an open bed was available for her. She has been having difficulty with eating and drinking, dysphagia, abdominal pain and weight loss. She is n.p.o. currently for an EGD and placement of Nguyen catheter for TPN nutrition. A CT scan was done as an outpatient. This morning she reports pain is little bit better, but her right shoulder hurts. Does have chronic pain in her shoulders, hips, back and neck. Last bowel movement was yesterday morning, 07/16/2020. Mom states it was not as large as what she normally has. REVIEW OF SYSTEMS: Remainder of review of systems negative for any pertinent positives and negatives. OBJECTIVE: GENERAL: Roxi Patterson is a 44-year-old female. She is orientated. VITAL SIGNS: TPR is 95.4, 73, 16. Blood pressure 113/79. HEENT: Negative. NECK: Supple. HEART: Regular rate and rhythm. LUNGS: Clear. ABDOMEN: There is tenderness in the mid epigastric area, otherwise soft and nontender. EXTREMITIES: Without peripheral edema. 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 Scheduled and consent signed for EGD with possible dilation and biopsies and placement of a Nguyen catheter for TPN nutrition. We will evaluate p.r.n. or in a.m. Yamilex Clinton PA-C /[id number]
[2020-07-17] MEDS: 1: AA 5%/Calcium/D15W/Lytes 1,000 ML with MVI, Adult with Vitamin K 10 ML, Zinc/Copper/M IV SCH ×3 (15:01)
[2020-07-17] MEDS: Fat Emulsion 100 ML IV SCH (15:01)
[2020-07-17] MEDS ORDERED: Dextrose 5%-Lactated Ringers 1,000 ML IV SCH (16:00)
[2020-07-18] MEDS: Magnesium Sulfate/Water 2 GM/50 ML BAG IV SCH ×3 (00:37→11:18)
[2020-07-18] MEDS: 1: AA 5%/Calcium/D15W/Lytes 1,000 ML with MVI, Adult with Vitamin K 10 ML, Zinc/Copper/M IV SCH ×12 (01:18→21:16)
[2020-07-18] MEDS: Pantoprazole 40 MG Vial IV SCH ×2 (06:14→17:32)
[2020-07-18] MEDS ORDERED: Central Total Parenteral Nutrition Bag SCH (07:00)
[2020-07-18] MEDS: Hyoscyamine 0.125 MG Tab.SL SL SCH ×4 (07:44→19:40)
[2020-07-18] MEDS: Acetaminophen 325 MG Tab PO PRN ×2 (07:50→16:08)
--- NOTE | 2020-07-18 11:20 | PN ---
DATE OF SERVICE: 07/18/2020 SUBJECTIVE: Roxi had an upper endoscopy yesterday with a Nguyen catheter placed. She is sitting up in the chair eating breakfast. She states she may feel a little bit better. Oral intake was 1450. Urine output 4400. She did have a bowel movement yesterday. Mom states it was smaller than she normally has. 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 Remainder of review of systems negative for any pertinent positives and negatives. OBJECTIVE: GENERAL: Roxi Patterson is a pleasant 44-year-old female in good spirits. VITAL SIGNS: TPR is 98.6, 89, 18; blood pressure 112/68. HEENT: Negative. NECK: Supple. HEART: Regular rate and rhythm. LUNGS: Clear. ABDOMEN: Soft and nontender. EXTREMITIES: Without peripheral edema. ASSESSMENT: 1. EGD and placement of Nguyen catheter, 07/17/2020. 2. Weight loss. 3. Inability to eat due to pain postprandial. 4. Status post total gastrectomy with Sathish-en-Y. 5. Malnutrition. PLAN: 1. Continue same TPN rate and content. 2. Check CBC, CMP, magnesium, and phosphorus in a.m. 3. We will evaluate p.r.n. or in a.m. Yamilex Clinton PA-C /[id number]
[2020-07-18] MEDS: Fat Emulsion 100 ML IV SCH (15:41)
[2020-07-18] MEDS: diphenhydrAMINE 25 MG Cap PO PRN (19:40)
[2020-07-19] MEDS: Pantoprazole 40 MG Vial IV SCH ×2 (05:22→17:23)
[2020-07-19] MEDS: 1: AA 5%/Calcium/D15W/Lytes 1,000 ML with MVI, Adult with Vitamin K 10 ML, Zinc/Copper/M IV SCH ×6 (07:23→18:17)
[2020-07-19] MEDS: Hyoscyamine 0.125 MG Tab.SL SL SCH ×4 (07:24→20:04)
[2020-07-19] MEDS: Fat Emulsion 100 ML IV SCH (16:15)
[2020-07-19] MEDS: Acetaminophen 325 MG Tab PO PRN (18:20)
[2020-07-19] MEDS: diphenhydrAMINE 25 MG Cap PO PRN (20:05)
[2020-07-20] MEDS: 1: AA 5%/Calcium/D15W/Lytes 1,000 ML with MVI, Adult with Vitamin K 10 ML, Zinc/Copper/M IV SCH ×6 (03:27→13:36)
[2020-07-20] MEDS: Hyoscyamine 0.125 MG Tab.SL SL SCH ×4 (07:41→20:14)
[2020-07-20] MEDS: Pantoprazole 40 MG Vial IV SCH ×2 (07:41→17:03)
--- NOTE | 2020-07-20 13:07 | PN ---
DATE OF SERVICE: 07/19/2020 The patient has been afebrile with stable vital signs. She is still having some problems with sleep. I do not think we will want to give her more than Benadryl for sleep aid. Otherwise, we will continue the present TPN and plan to proceed with surgical intervention on Tuesday. Ubaldo Mancera MD /[id number]
[2020-07-20] MEDS: Fat Emulsion 100 ML IV SCH (16:19)
[2020-07-20] MEDS: diphenhydrAMINE 25 MG Cap PO PRN (20:14)
[2020-07-21] MEDS: 1: AA 5%/Calcium/D15W/Lytes 1,000 ML with MVI, Adult with Vitamin K 10 ML, Zinc/Copper/M IV SCH ×9 (00:03→19:45)
[2020-07-21] MEDS: Pantoprazole 40 MG Vial IV SCH (06:56)
[2020-07-21] MEDS ORDERED: Lidocaine 1% with EPINEPHrine 1:100,000 50 ML MDV ONE (08:09)
[2020-07-21] MEDS ORDERED: Bupivacaine 0.5% 50 ML MDV ONE (08:09)
[2020-07-21] MEDS ORDERED: Neostigmine Methylsulfate 1 MG/ML 5 ML Syringe ONE (09:17)
[2020-07-21] MEDS ORDERED: Glycopyrrolate 0.2 MG/ML 5 ML MDV ONE (09:17)
[2020-07-21] MEDS ORDERED: Ondansetron 4 MG/2 ML SDV ONE (09:17)
[2020-07-21] MEDS ORDERED: Rocuronium 50 MG/5 ML Vial ONE (09:17)
[2020-07-21] MEDS ORDERED: Succinylcholine 200 MG/10 ML MDV ONE (09:17)
[2020-07-21] MEDS ORDERED: Dexamethasone 4 MG/ML SDV ONE (09:17)
[2020-07-21] MEDS ORDERED: Propofol 200 MG/20 ML SDV ONE (09:17)
[2020-07-21] MEDS ORDERED: fentaNYL 250 MCG/5 ML SDV ONE (09:19)
[2020-07-21] MEDS ORDERED: Meropenem 500 MG SDV ONE (09:28)
[2020-07-21] MEDS ORDERED: Ketamine 50 MG in Sodium Chloride 0.9% 49.5 ML IV SCH (11:15)
[2020-07-21] MEDS ORDERED: Ketamine 500 MG/5 ML MDV IV SCH (11:15)
[2020-07-21] MEDS ORDERED: Magnesium Sulfate 1.5 GM in Sodium Chloride 0.9% 100 ML IV SCH (11:15)
[2020-07-21] MEDS ORDERED: fentaNYL 100 MCG/2 ML SDV ONE (11:31)
[2020-07-21] MEDS ORDERED: MAGNESIUM SULFATE IV ONE (11:45)
[2020-07-21] MEDS ORDERED: SODIUM CHLORIDE 0.9% IV ONE (11:45)
[2020-07-21] MEDS ORDERED: diphenhydrAMINE 25 MG Cap PO PRN (12:06)
[2020-07-21] MEDS ORDERED: HYDROmorphone/Normal Saline 15 MG/30 ML PCA IV PRN (12:06)
[2020-07-21] MEDS ORDERED: Naloxone 0.4 MG/ML SDV IVPUSH PRN (12:06)
[2020-07-21] MEDS ORDERED: Ondansetron 4 MG/2 ML SDV IVPUSH PRN (12:06)
[2020-07-21] MEDS ORDERED: diphenhydrAMINE 50 MG/ML SDV IVPUSH PRN (12:06)
[2020-07-21] MEDS ORDERED: Naloxone 0.4 MG/ML SDV IV PRN (13:00)
[2020-07-21] MEDS: cefOXitin 2 GM in Sodium Chloride 0.9% 50 ML IV ONE ×2 (13:12→14:29)
[2020-07-21] MEDS ORDERED: Dextrose 5%-Lactated Ringers 1,000 ML IV SCH (13:15)
[2020-07-21] MEDS: Hyoscyamine 0.125 MG Tab.SL SL SCH (13:30)
[2020-07-21] MEDS ORDERED: Cyclobenzaprine 10 MG Tab PO PRN (13:35)
[2020-07-21] MEDS: cefOXitin 2 GM in Sodium Chloride 0.9% 50 ML IV SCH ×2 (13:37→19:45)
[2020-07-21] MEDS ORDERED: Hypromellose 0.3% Ophth Soln 15 ML Bottle EYEBOTH PRN (13:43)
--- NOTE | 2020-07-21 13:50 | PN ---
DATE OF SERVICE: 07/20/2020 The patient has been afebrile with stable vital signs. She moved her bowels overnight and tolerated the TPN satisfactorily. Plan will be to proceed with exploratory laparotomy, release of bowel obstruction, and possible bowel resection tomorrow for what is likely a partial small-bowel obstruction. Potential risks were reviewed with the patient and mother, and they wished to proceed. Ubaldo Mancera MD /[id number]
[2020-07-21] MEDS ORDERED: Acetaminophen 500 MG Tab PO PRN (14:00)
[2020-07-21] MEDS ORDERED: hydrOXYzine HCL 100 MG/2 ML SDV IM PRN (14:00)
[2020-07-21] MEDS ORDERED: Metoclopramide 10 MG/2 ML SDV IVPUSH PRN (14:00)
[2020-07-21] MEDS ORDERED: Labetalol 20 MG/4 ML Syringe IVPUSH PRN (14:00)
[2020-07-21] MEDS: Ondansetron 4 MG/2 ML SDV IVPUSH PRN (15:14)
[2020-07-21] MEDS ORDERED: Scopolamine 1.5 MG Transdermal Patch TOP SCH (15:30)
[2020-07-21] MEDS: Acetaminophen 500 MG Tab PO SCH (15:53)
[2020-07-21] MEDS: Heparin Sodium 5,000 Units/ML Vial SUBCUT SCH (19:45)
[2020-07-21] MEDS: diphenhydrAMINE 50 MG/ML SDV IVPUSH PRN (22:04)
[2020-07-22] MEDS: Acetaminophen 500 MG Tab PO SCH ×4 (00:15→23:00)
[2020-07-22] MEDS: cefOXitin 2 GM in Sodium Chloride 0.9% 50 ML IV SCH ×2 (01:16→08:13)
[2020-07-22] MEDS: diphenhydrAMINE 50 MG/ML SDV IVPUSH PRN ×2 (05:09→22:55)
[2020-07-22] MEDS: Ondansetron 4 MG/2 ML SDV IVPUSH PRN (05:39)
[2020-07-22] MEDS: 1: AA 5%/Calcium/D15W/Lytes 1,000 ML with MVI, Adult with Vitamin K 10 ML, Zinc/Copper/M IV SCH ×9 (05:41→17:14)
[2020-07-22] MEDS ORDERED: Iopamidol 612 MG/ML 50 ML SDV PO STA (06:04)
[2020-07-22] MEDS ORDERED: Dextrose 5%-Lactated Ringers 1,000 ML IV SCH (07:45)
[2020-07-22] MEDS: Heparin Sodium 5,000 Units/ML Vial SUBCUT SCH ×2 (08:14→20:05)
[2020-07-22] MEDS: Celecoxib 200 MG Cap PO SCH ×2 (08:14→20:05)
[2020-07-22] MEDS: VERIFY SCOP PATCH TOP SCH (08:15)
--- NOTE | 2020-07-22 09:00 | CR ---
UGI Limited HISTORY: Postbariatric surgery FINDINGS: Patient swallowed water-soluble contrast. Upright views of the abdomen show no evidence of extravasation or obstruction. IMPRESSION: Status post bariatric surgery No extravasation or obstruction seen
[2020-07-23] MEDS: 1: AA 5%/Calcium/D15W/Lytes 1,000 ML with MVI, Adult with Vitamin K 10 ML, Zinc/Copper/M IV SCH ×12 (01:17→21:08)
[2020-07-23] MEDS ORDERED: Central Total Parenteral Nutrition Bag SCH (08:00)
[2020-07-23] MEDS ORDERED: Cyanocobalamin (Vitamin B12) 1,000 MCG/ML SDV IM ONE (09:00)
[2020-07-23] MEDS: Acetaminophen 500 MG Tab PO SCH ×3 (09:27→23:02)
[2020-07-23] MEDS: Heparin Sodium 5,000 Units/ML Vial SUBCUT SCH ×2 (09:27→19:42)
[2020-07-23] MEDS: Celecoxib 200 MG Cap PO SCH ×2 (09:27→21:08)
[2020-07-23] MEDS: HYDROmorphone 2 MG Tab PO PRN ×2 (09:39→23:01)
--- NOTE | 2020-07-23 10:10 | PN ---
DATE OF SERVICE: 07/23/2020 SUBJECTIVE: Roxi is sitting up in the chair. Eating breakfast. She states that they had put oxygen back on her last night after giving her Benadryl and her oxygen sats went down. Pain is controlled using the AERONAUTICAL DRAFTER. Oral intake was 2360. Urine output 3950. She has no other concerns or questions today. OBJECTIVE: GENERAL: Roxi is a 44-year-old female. Mom is present in the room. VITAL SIGNS: TPR is 98.3; 88; 16; blood pressure 104/70. HEENT: Negative. NECK: Supple. HEART: Regular rate and rhythm. LUNGS: Clear. ABDOMEN: Dressings dry and intact. Abdominal binder is on. EXTREMITIES: Without peripheral edema. ASSESSMENT: 1. Esophagogastroduodenoscopy and placement of Nguyen catheter. Date: 07/17/2020. Surgeon: Ubaldo Mancera MD. 2. Exploratory laparotomy with lysis of adhesions and revision of the jejunojejunostomy and placement of Interceed mesh. Date of procedure: 07/21/2020. Surgeon: Ubaldo Mancera MD. 3. TPN therapy. PLAN: 1. Step 3 gastric bypass diet. 2. Discontinue AERONAUTICAL DRAFTER and continuous pulse ox. 3. Dilaudid 2 mg 1 to 2 every 4 hours p.r.n. pain. 4. Decrease TPN to 60 mL/h. 5. We will check into [facility] for chronic constipation depending on which medication the pharmacy will pay for. 6. Continue use of incentive spirometer. 7. We will evaluate p.r.n. or in a.m. Yamilex Clinton PA-C /[id number]
[2020-07-23] MEDS: VERIFY SCOP PATCH TOP SCH (10:41)
[2020-07-23] MEDS: Ondansetron 4 MG/2 ML SDV IVPUSH PRN (23:09)
[2020-07-24] MEDS: 1: AA 5%/Calcium/D15W/Lytes 1,000 ML with MVI, Adult with Vitamin K 10 ML, Zinc/Copper/M IV SCH ×6 (06:10→06:37)
[2020-07-24] MEDS ORDERED: Lubiprostone 24 MCG Cap PO SCH (08:00)
[2020-07-24] MEDS: Acetaminophen 500 MG Tab PO SCH (09:03)
[2020-07-24] MEDS: Celecoxib 200 MG Cap PO SCH (09:03)
[2020-07-24] MEDS: Heparin Sodium 5,000 Units/ML Vial SUBCUT SCH (09:09)
[2020-07-24] MEDS: VERIFY SCOP PATCH TOP SCH (09:11)
[2020-07-24 09:15] VITALS: BP 126/76; PULSE 92
--- NOTE | 2020-07-24 11:32 | DISCH ---
ADMISSION DIAGNOSES: 1. Dysphagia. 2. Mid epigastric abdominal pain. 3. Weight loss. 4. Inability to eat. 5. Status post gastrectomy with Sathish-en-Y esophagojejunostomy. 6. Chronic constipation. 7. Vitamin B12 deficiency. 8. Vitamin B complex deficiency. DISCHARGE DIAGNOSES: 1. Esophagogastroduodenoscopy and placement of Nguyen catheter on 07/17/2020. Surgeon: Ubaldo Mancera MD. 2. Exploratory laparotomy with lysis of adhesion and revision of the jejunojejunostomy and placement of Interceed mesh. Date of procedure 07/21/2020. Surgeon: Ubaldo Mancera MD. HISTORY: Roxi is a 44-year-old female who had the above chief complaints. She was admitted to the hospital on 07/16/2020 and had an EGD and placement of Nguyen catheter on 07/17/2020. She tolerated the procedure well. She was started on TPN and her nutritional status was built up so she could have surgery on 07/21/2020. After her above procedure on 07/21/2020, her pain was managed with a PLATFORM LOADER. She was continued to have TPN therapy. She was gradually switched over to oral pain medication. She started eating. Her PLATFORM LOADER was discontinued and she was started on oral pain medication. On 07/24/2020, she remained afebrile. Vital signs were stable. Oral intake was adequate at 2360. Urine output was 3950. Last bowel movement was on 07/22/2020. Radha was able to be discharged to home with no complications. PHYSICAL EXAMINATION: GENERAL: Roxi is a 44-year-old female. Height is 5 feet 2.99 inches. Weight is 123 pounds. VITAL SIGNS: TPR is 96.7, 82, 18, blood pressure 121/81. HEENT: Negative. NECK: Supple. HEART: Regular rate and rhythm. LUNGS: Clear. ABDOMEN: Aquacel dressing is on. Abdominal binder is on. EXTREMITIES: Without peripheral edema. DISPOSITION: Discharged home. CONDITION: Stable and improving. FOLLOWUP APPOINTMENT: 07/31/2020 at 10:15 a.m. HOME MEDICATION: 1. Amitiza 24 mcg oral b.i.d. #60, 11 refills. 2. Celebrex 200 mg p.o. b.i.d., #28. 3. Dilaudid 2 to 4 mg every 4 hours p.r.n. pain #40. 4. Tylenol 1000 mg every 6 hours p.r.n. pain. DIET: Step 3 gastric bypass diet. Drink 8 to 10 glasses of water a day. ACTIVITY: No lifting over 10 pounds for 6 weeks. Other activity: Walk inside your house 6 times daily. May shower. DISCHARGE INSTRUCTIONS: Notify provider if any fever, increased pain, swelling, redness, drainage, nausea, or vomiting. Keep site clean and dry. Take off Aquacel dressing on 07/28/2020. Wear abdominal binder for 2 weeks or longer if tolerated. SPECIAL INSTRUCTION: Use incentive spirometer 10 times every hour while awake. Nguyen catheter will be left in until first postop appointment and decision will be made whether or not to take this out at this time or flush it and change dressing and leave it in. /[id number]
--- NOTE | 2020-07-27 11:05 | OR ---
DATE OF PROCEDURE: 07/21/2020 SURGEON: Ubaldo Mancera MD PREOPERATIVE DIAGNOSIS: Partial small bowel obstruction. POSTOPERATIVE DIAGNOSES: 1. Partial small bowel obstruction at jejunojejunostomy. 2. Extensive intraabdominal adhesions. 3. Incarcerated incisional hernia. OPERATIVE PROCEDURES: Exploratory laparotomy with: 1. Small bowel resection (12791). 2. Secondary enteroenterostomy to restore Sathish-en-Y small bowel anatomy (04710). 3. Repair of incarcerated incisional hernia (63091). 4. Placement of Interceed mesh to limit recurrent adhesion formation between pelvic and abdominal wall and underlying viscera (90715). ANESTHESIA: General. ARTIFICIAL LEATHER CALENDER OPERATOR: Yamilex Clinton PA-C INDICATIONS FOR PROCEDURE: This is a 44-year-old female presenting with chronic postprandial abdominal pain. She is status post previous resection of proximal stomach with Sathish-en-Y reconstruction, and the plan is to proceed with limited laparotomy, lysis of adhesions, and bowel resection as indicated. Potential risks including bleeding, infection, leaks from various GI tract closures, or problems with persistent or recurrence of symptoms were all gone over, and the patient and her mother wished to proceed. DETAILS OF PROCEDURE: The patient was taken to the operating room, and after general endotracheal anesthesia was induced, a Samano catheter was inserted, and the abdomen prepped and draped. A midline incision from the umbilicus roughly a handsbreadth towards the xiphoid was made and carried down through the full-thickness of abdominal wall. Upon entering the peritoneal cavity, there was quite a bit in way of adhesions between the omentum, the transverse colon, and the anterior abdominal wall. The patient was noted to have, on entrance of the abdomen, an incarcerated trocar site hernia, which included some preperitoneal fat incarcerated within it. This was excised. After the adhesions were lysed, it became evident at that point that partial obstruction was at the junction of the Sathish limb as it entered the jejunojejunostomy, and the decision made to proceed with resection and revision of that anastomosis. The three components were divided with YASH kulwinder and the underlying mesentery divided with YASH kulwinder as well. GI tract continuity was initially restored with a [id number] anastomosis between what had been the distal-most biliopancreatic limb into the proximal-most common limb with a side-to- side enterostomy with a 60 mm internal firing of the Endo-YASH stapler. Common limb was closed transversely with the same stapler. Angles were anastomosed and was reinforced with some 3-0 Vicryl stitch and the mesenteric defect with a 2-0 silk stitch. Sathish-en-Y anatomy was then restored with anastomosis between the end of Sathish limb and the small bowel roughly 20 cm distal to the first anastomosis with the same sequence of kulwinder and mesenteric closures. At this point, no further problems were noted. The abdomen was irrigated with antibiotic-containing saline solution. Interceed mesh was then placed underneath the incision and down towards the pelvis to limit recurrent adhesion formation. Bilateral transversus abdominis plane blocks at that point had been placed, and the midline fascia was then approximated with #2 Vicryl stitch, which included repair of the incisional hernia. The subcutaneous tissue was closed with 2 layers of 3-0 and 4-0 Vicryl stitch deep, and the skin was stapled. Dressing was applied. The patient was taken to the recovery room in satisfactory condition. Physician assistant facility manager, Yamilex Clinton, played an essential role in assisting in this case, helping to position the patient, retract structures as needed, as well as stapling and suturing as indicated. Her presence improved patient safety and decreased the operative time. Ubaldo Mancera MD /[id number]
--- NOTE | 2020-07-27 11:38 | OR ---
DATE OF PROCEDURE: 07/17/2020 SURGEON: Ubaldo Mancera MD PREOPERATIVE DIAGNOSES: 1. Indication for central venous access. 2. Upper and mid abdominal pain in the postprandial period. POSTOPERATIVE DIAGNOSES: 1. Indication for central venous access. 2. Normal upper gastrointestinal endoscopic examination, status post partial gastrectomy suggestive of partial small-bowel obstruction distal to the area of endoscopic examination. OPERATIVE PROCEDURES: 1. Insertion of double-lumen Nguyen catheter via left subclavian approach (27550). 2. Upper gastrointestinal endoscopy (81971). ANESTHESIA: IV sedation plus local. INDICATIONS FOR PROCEDURE: The patient presents with significant malnutrition. She has been having problems with postprandial abdominal pain and bloating and now has developed malnutrition to an extent that her BMI is in the 19 range. The plan is to proceed with a central line insertion to initiate some TPN, and we will also then proceed concurrently with an upper GI endoscopy to make sure there are not some contributing problems with the area around the esophagogastric junction that would be needing correction to facilitate adequate oral intake. Potential risks of the procedure including bleeding, infection, pneumohemothorax, or vascular injury were all reviewed, and the patient and mother wished to proceed. DETAILS OF PROCEDURE: The patient was taken to the operating room, placed in a left lateral decubitus position. IV sedation was administered after which the upper GI endoscope was passed orally through the length of the esophagus, through the Sathish limb for roughly 20 cm. To that level, no abnormalities were noted. There were no areas of inflammation or stricturing. The exam was entirely normal. The scope was then withdrawn, and the procedure was then concluded. The patient now placed in the supine position. The upper chest and neck areas were then prepped and draped, and the left subclavian area was anesthetized with 1% lidocaine mixed with Marcaine and left subclavian vein was then cannulated. A guidewire passed and manipulated into the superior vena cava. Some additional local was injected, and 2 stab wounds were placed, one at the wire and one probably 4 fingerbreadths inferior to that on the chest wall, and the Nguyen catheter was then tunneled between those 2 points and cut such that the tip would lie in the area of the superior vena cava and right atrial junction. The catheter was then deployed over the introducer and peel-away catheter without difficulty. Good in and outflow was noted at the ports, which were flushed with heparinized saline. The catheter was sutured at the external skin level with 2-0 nylon stitch, and the initial puncture site was closed with 4-0 Vicryl subcuticular stitch and Steri-Strips were applied. The patient was taken to the recovery room in satisfactory condition. There were no other complications. Ubaldo Mancera MD /[id number]
--- NOTE | 2020-07-27 12:11 | PN ---
DATE OF SERVICE: 07/22/2020 The patient has been afebrile with stable vital signs. No major problems were noted overnight. Urine output has been satisfactory, and the labs show no significant problems. We will back down the IV rate, stay on her step-2 diet, discontinue the Samano catheter, and begin some bowel stimulation. Ubaldo Mancera MD /[id number]
== END 2020-07-24 11:50 | disposition home or self-care (01) | DRG 330 ==
LOC: JP.ICU 15:58
PROVIDERS: ADMIT Surgery; ATTEND Surgery
PROC: 02H633Z Insertion of Infusion Device into Right Atrium, Percutaneous Approach (ICD-10-PCS; principal; 2020-07-17)
PROC: 0DJ08ZZ Inspection of Upper Intestinal Tract, Via Natural or Artificial Opening Endoscopic (ICD-10-PCS; 2020-07-17)
PROC: 0DB80ZZ Excision of Small Intestine, Open Approach (ICD-10-PCS; 2020-07-21)
PROC: 0WQF0ZZ Repair Abdominal Wall, Open Approach (ICD-10-PCS; 2020-07-21)
PROC: 0DN80ZZ Release Small Intestine, Open Approach (ICD-10-PCS; 2020-07-21)
PROC: 3E0M05Z Introduction of Adhesion Barrier into Peritoneal Cavity, Open Approach (ICD-10-PCS; 2020-07-21)
DX: K91.2 Postsurgical malabsorption, not elsewhere classified (principal); E46 Unspecified protein-calorie malnutrition; K56.51 Intestinal adhesions [bands], with partial obstruction; E53.8 Deficiency of other specified B group vitamins; E53.9 Vitamin B deficiency, unspecified; E55.9 Vitamin D deficiency, unspecified; E61.0 Copper deficiency; E60 Dietary zinc deficiency; E50.9 Vitamin A deficiency, unspecified; Z20.828 Contact with and (suspected) exposure to other viral communicable diseases; F41.9 Anxiety disorder, unspecified; K22.70 Barrett's esophagus without dysplasia; K21.9 Gastro-esophageal reflux disease without esophagitis; I10 Essential (primary) hypertension; F79 Unspecified intellectual disabilities; G47.33 Obstructive sleep apnea (adult) (pediatric); R62.50 Unspecified lack of expected normal physiological development in childhood; M47.816 Spondylosis without myelopathy or radiculopathy, lumbar region; R13.10 Dysphagia, unspecified; K59.09 Other constipation; R63.4 Abnormal weight loss; Z79.899 Other long term (current) drug therapy; Z90.49 Acquired absence of other specified parts of digestive tract; Z90.710 Acquired absence of both cervix and uterus; Z90.3 Acquired absence of stomach [part of]; Z98.0 Intestinal bypass and anastomosis status; Z68.22 Body mass index [BMI] 22.0-22.9, adult
CPT/HCPCS: 36415; 74240; 74240-26; 77001; 80053; 83735; 83880; 84100; 85025; 85027; 88302; 88307; 94667; 94762; 97110-GP; 97161-GP; A9270-GY; C9113; J0171; J0330; J0694; J1100; J1170; J1200; J1642; J1644; J2185; J2250; J2405; J2704; J2710; J2795; J3010; J3410; J3420; J3475; J3490; J7050; J7120; J7121; Q9967; U0002

== ENCOUNTER 2021-03-19 18:28 | Emergency (ER) | payer MEDICARE | END 2021-03-19 20:08 | disposition left against medical advice (07) | LOC: JP.ED 18:28 | DX: Z53.21 Procedure and treatment not carried out due to patient leaving prior to being seen by health care provider (principal) ==

== ENCOUNTER 2021-05-14 05:26 | Day surgery (SDC) | payer MEDICARE ==
[2021-05-14] MEDS ORDERED: Lactated Ringers 1,000 ML IV SCH (06:00)
[2021-05-14] MEDS ORDERED: Propofol 200 MG/20 ML SDV ONE (07:14)
[2021-05-14] MEDS ORDERED: fentaNYL 100 MCG/2 ML SDV ONE (07:14)
[2021-05-14] MEDS ORDERED: Glycopyrrolate 0.2 MG/ML 2 ML SDV IVPUSH ONE (07:15)
[2021-05-14] MEDS ORDERED: Cyanocobalamin (Vitamin B12) 1,000 MCG/ML SDV IM ONE (07:30)
[2021-05-14] MEDS ORDERED: MVI, Adult with Vitamin K 10 ML, Thiamine 200 MG, Zinc/Copper/Manganese/Selenium 1 ML i... IV ONE ×4 (08:00)
[2021-05-14] MEDS ORDERED: Dexamethasone 4 MG/ML SDV ONE (08:16)
[2021-05-14 08:42] VITALS: BP 133/86; PULSE 86
--- NOTE | 2021-05-18 12:57 | OR ---
DATE OF PROCEDURE: 05/14/2021 SURGEON: Ubaldo Mancera MD PREOPERATIVE DIAGNOSIS: Laryngopharyngeal dysphagia. POSTOPERATIVE DIAGNOSES: Laryngopharyngeal distal dysphagia associated with: 1. Normal laryngopharynx and upper esophageal sphincter. 2. Very mild inflammation at esophagogastric junction. OPERATIVE PROCEDURE: Upper GI endoscopy with biopsies of gastric pouch for CLOtest. ANESTHESIA: IV sedation. INDICATIONS FOR PROCEDURE: This is a 45-year-old female presenting with some laryngopharyngeal dysphagia. She gags and spits up when trying to swallow especially with pills. The plan is to proceed with upper GI endoscopy with biopsies and/or dilation as indicated. Potential risks including bleeding and perforation were discussed, and the patient wishes to proceed. DETAILS OF PROCEDURE: The patient was taken to the operating room and placed in a left lateral decubitus position. IV sedation was administered after which the upper GI endoscope was passed orally through the length of the esophagus and into the area of the gastrojejunostomy and from there roughly 20 cm into the Sathish limb. Overall exam was entirely normal, although there was some very mild redness at the esophagogastric junction. No blood, bleeding, or ulceration were seen at laryngopharynx and close examination appeared to be completely normal with no areas of reddening, edema, or structural abnormalities noted. Remainder of exam was also entirely normal. At this point, biopsies were obtained from the gastric pouch and sent for CLOtest for H pylori. Minimal bleeding from the biopsy site was seen, and the procedure was then concluded. The patient recently had an ENT examination in [facility], and they likewise did not find anything anatomically problematic in the laryngopharyngeal area. The amount of inflammation at EG junction I think would not warrant starting her on any additional medication at this time. We will obtain a swallow study with Speech Pathology consultation, and otherwise have her see Latisha Palumbo PA-C, following the swallowing study to review those findings and any recommendations that might be rendered from that consultation. Otherwise, we will have her see Yamilex Clinton in 2 months for a bariatric followup. Ubaldo Mancera MD /[id number]
== END 2021-05-14 09:00 | disposition home or self-care (01) ==
LOC: JP.SDS 05:26
PROVIDERS: ATTEND Surgery
DX: K21.00 Gastro-esophageal reflux disease with esophagitis, without bleeding (principal); R13.19 Other dysphagia; I10 Essential (primary) hypertension; K21.9 Gastro-esophageal reflux disease without esophagitis
CPT/HCPCS: 43239; 87081; J2704; J3010; J3411; J3420; J3490; J7120; J1100

== ENCOUNTER 2022-03-03 05:59 | Day surgery (SDC) | payer MEDICARE ==
[2022-03-03] MEDS ORDERED: Bupivacaine 0.5% 30 ML SDV ONE ×2 (06:45→07:26)
[2022-03-03] MEDS ORDERED: Nozin Nasal Sanitizer NASBOTH ONE (07:00)
[2022-03-03] MEDS ORDERED: Lactated Ringers 1,000 ML IV SCH (07:00)
[2022-03-03 07:15] LABS: ESTIMATED GFR 107 mL/min (>60)
[2022-03-03] MEDS ORDERED: fentaNYL 100 MCG/2 ML SDV ONE (07:23)
[2022-03-03] MEDS ORDERED: Propofol 200 MG/20 ML SDV ONE ×2 (07:24→09:01)
[2022-03-03] MEDS ORDERED: Midazolam 1 MG/ML 2 ML SDV ONE (07:24)
[2022-03-03] MEDS ORDERED: ceFAZolin 1 GM in Premix Bag 1 BAG IV ONE (07:30)
[2022-03-03] MEDS ORDERED: Lactated Ringers 1,000 ML ONE (09:34)
[2022-03-03] MEDS ORDERED: Morphine 2 MG/ML SYRINGE IVPUSH ONE (09:55)
[2022-03-03] MEDS ORDERED: Acetaminophen/HYDROcodone 325-5 MG Tab PO PRN (11:09)
[2022-03-03 12:30] VITALS: BP 126/86; PULSE 64
[2022-03-03] MEDS ORDERED: Acetaminophen 160 MG Tab,Disintegrating PO ONE (12:30)
== END 2022-03-03 12:53 | disposition home or self-care (01) ==
LOC: JP.SDS 05:59
PROVIDERS: ATTEND Specialist
DX: S43.432A Superior glenoid labrum lesion of left shoulder, initial encounter (principal); M25.812 Other specified joint disorders, left shoulder; M75.52 Bursitis of left shoulder; I10 Essential (primary) hypertension; F41.9 Anxiety disorder, unspecified; G47.33 Obstructive sleep apnea (adult) (pediatric); Z88.5 Allergy status to narcotic agent; Z98.890 Other specified postprocedural states
CPT/HCPCS: 29807; 29826; 36415; 80053; 85027; A9270; C1713; J0690; J2250; J2270; J2704; J3010; J3490; J7120

== ENCOUNTER 2022-08-11 06:47 | Day surgery (SDC) | payer MEDICARE ==
[2022-08-11] MEDS ORDERED: Lactated Ringers 1,000 ML IV SCH (07:30)
[2022-08-11] MEDS ORDERED: Propofol 200 MG/20 ML SDV ONE (09:39)
[2022-08-11] MEDS ORDERED: Acetaminophen 160 MG Tab,Disintegrating PO ONE (10:26)
[2022-08-11 10:53] VITALS: BP 144/91; PULSE 98
== END 2022-08-11 11:05 | disposition home or self-care (01) ==
LOC: JP.SDS 06:47
PROVIDERS: ATTEND Specialist
DX: M75.02 Adhesive capsulitis of left shoulder (principal); I10 Essential (primary) hypertension; G47.33 Obstructive sleep apnea (adult) (pediatric); K21.9 Gastro-esophageal reflux disease without esophagitis; Z79.899 Other long term (current) drug therapy; Z91.048 Other nonmedicinal substance allergy status; Z88.4 Allergy status to anesthetic agent; Z88.8 Allergy status to other drugs, medicaments and biological substances
CPT/HCPCS: 23929; A9270; J2704; J7120

== ENCOUNTER 2022-11-15 07:26 | Day surgery (SDC) | payer MEDICARE ==
[~2022-11-15 07:26] MED LIST changes: -Bupivacaine 0.5% 30 ML SDV ONE; +Bupivacaine 0.5% 50 ML MDV ONE; -Lidocaine 2% 20 ML MDV ONE; -Midazolam 1 MG/ML 2 ML SDV ONE; -Propofol 200 MG/20 ML SDV ONE; -fentaNYL 100 MCG/2 ML SDV ONE
[2022-11-15] MEDS ORDERED: Scopolamine 1.5 MG Transdermal Patch TOP ONE (07:44)
[2022-11-15] MEDS ORDERED: Nozin Nasal Sanitizer NASBOTH ONE (08:00)
[2022-11-15] MEDS ORDERED: Lactated Ringers 1,000 ML IV SCH (08:00)
[2022-11-15] MEDS ORDERED: ceFAZolin 2 GM in Premix Bag 1 BAG IV ONE (08:30)
[2022-11-15] MEDS ORDERED: Rocuronium 50 MG/5 ML Vial ONE (09:06)
[2022-11-15] MEDS ORDERED: Ondansetron 4 MG/2 ML SDV ONE (09:06)
[2022-11-15] MEDS ORDERED: Neostigmine Methylsulfate 1 MG/ML 5 ML Syringe ONE (09:06)
[2022-11-15] MEDS ORDERED: Dexamethasone 4 MG/ML SDV ONE (09:06)
[2022-11-15] MEDS ORDERED: Propofol 200 MG/20 ML SDV ONE (09:06)
[2022-11-15] MEDS ORDERED: Glycopyrrolate 0.2 MG/ML 5 ML MDV ONE (09:06)
[2022-11-15] MEDS ORDERED: fentaNYL 250 MCG/5 ML SDV ONE (09:07)
[2022-11-15] MEDS ORDERED: Thiamine 200 MG/2 ML MDV IM ONE (10:00)
[2022-11-15] MEDS ORDERED: Ketorolac 30 MG/ML SDV ONE (10:57)
[2022-11-15] MEDS ORDERED: traMADol 50 MG Tab PO PRN (11:43)
[2022-11-15 13:16] VITALS: BP 112/75; PULSE 67
== END 2022-11-15 14:26 | disposition home or self-care (01) ==
LOC: JP.SDS 07:26
PROVIDERS: ATTEND Specialist
DX: S73.102A Unspecified sprain of left hip, initial encounter (principal); M21.852 Other specified acquired deformities of left thigh; M94.252 Chondromalacia, left hip; I10 Essential (primary) hypertension; K21.9 Gastro-esophageal reflux disease without esophagitis; G47.33 Obstructive sleep apnea (adult) (pediatric); Z88.8 Allergy status to other drugs, medicaments and biological substances; Z91.048 Other nonmedicinal substance allergy status
CPT/HCPCS: 29914; 36415; 76000; 85027; A9270-GY; C1769; J0690; J1100; J1885; J2405; J2704; J2710; J3010; J3411; J3490; J7120

== ENCOUNTER 2023-02-21 07:08 | Day surgery (SDC) | payer MEDICARE ==
[2023-02-21] MEDS ORDERED: Neostigmine Methylsulfate 1 MG/ML 5 ML Syringe ONE (07:48)
[2023-02-21] MEDS ORDERED: Rocuronium 50 MG/5 ML Vial ONE (07:48)
[2023-02-21] MEDS ORDERED: Propofol 200 MG/20 ML SDV ONE (07:48)
[2023-02-21] MEDS ORDERED: Ondansetron 4 MG/2 ML SDV ONE (07:48)
[2023-02-21] MEDS ORDERED: Dexamethasone 4 MG/ML SDV ONE (07:48)
[2023-02-21] MEDS ORDERED: Glycopyrrolate 0.2 MG/ML 5 ML MDV ONE (07:48)
[2023-02-21] MEDS ORDERED: fentaNYL 250 MCG/5 ML SDV ONE (07:50)
[2023-02-21] MEDS ORDERED: Lactated Ringers 1,000 ML IV SCH (08:00)
[2023-02-21] MEDS ORDERED: Nozin Nasal Sanitizer NASBOTH ONE (08:00)
[2023-02-21] MEDS ORDERED: ceFAZolin 1 GM in Premix Bag 1 BAG IV ONE (08:00)
[2023-02-21 08:20] LABS: HEMATOCRIT 35.5 % (34.3-46.0); HEMOGLOBIN 12.1 g/dL (11.2-15.5); MEAN CORPUSCULAR HEMOGLOBIN 31.3 pg (31.6-35.5); MEAN CORPUSCULAR HGB CONC 34.1 g/dL (31.6-35.5); RED BLOOD CELL COUNT 3.86 M/uL (3.77-5.24)
[2023-02-21 08:35] LABS: ANION GAP 4.4 mmol/L (5.0-14.0); CALCIUM 9.2 mg/dL (8.5-10.1); CREATININE 0.7 mg/dL (0.6-1.0); EST CRCL DRUG DOSING (CG) 81.3 mL/min; POTASSIUM,K 3.9 mmol/L (3.6-5.2)
[2023-02-21] MEDS: Bupivacaine 0.5% 50 ML MDV ONE ×2 (09:10→09:18)
[2023-02-21] MEDS ORDERED: Sugammadex Sodium 200 MG/2 ML VIAL ONE (09:17)
[2023-02-21 11:19] VITALS: BP 108/74; PULSE 54
== END 2023-02-21 12:25 | disposition home or self-care (01) ==
LOC: JP.SDS 07:08
PROVIDERS: ATTEND Specialist
DX: M76.32 Iliotibial band syndrome, left leg (principal); G89.29 Other chronic pain; I10 Essential (primary) hypertension; Z88.8 Allergy status to other drugs, medicaments and biological substances
CPT/HCPCS: 27299; 36415; 80048; 84703; 85027; J0131; J0690; J1100; J2405; J2704; J2710; J3010; J3490; J7120

== ENCOUNTER 2023-03-16 09:45 | Day surgery (SDC) | payer MEDICARE ==
[~2023-03-16 09:45] MED LIST changes: -Bupivacaine 0.5% 50 ML MDV ONE; +Dexamethasone 4 MG/ML SDV ONE; +Glycopyrrolate 0.2 MG/ML 5 ML MDV ONE; +Neostigmine Methylsulfate 1 MG/ML 5 ML Syringe ONE; +Ondansetron 4 MG/2 ML SDV ONE; +Propofol 200 MG/20 ML SDV ONE; +Rocuronium 50 MG/5 ML Vial ONE; +fentaNYL 250 MCG/5 ML SDV ONE
[2023-03-16] MEDS ORDERED: Nozin Nasal Sanitizer NASBOTH ONE (10:00)
[2023-03-16] MEDS ORDERED: Lactated Ringers 1,000 ML IV SCH (11:00)
[2023-03-16] MEDS ORDERED: ceFAZolin 2 GM in Premix Bag 1 BAG IV ONE (11:30)
[2023-03-16 11:47] LABS: HEMATOCRIT 35.6 % (34.3-46.0); HEMOGLOBIN 12.2 g/dL (11.2-15.5); MEAN CORPUSCULAR HEMOGLOBIN 31.8 pg (31.6-35.5); MEAN CORPUSCULAR HGB CONC 34.3 g/dL (31.6-35.5); MEAN CORPUSCULAR VOLUME 92.7 fL (81.4-99.0); RED BLOOD CELL COUNT 3.84 M/uL (3.77-5.24); WHITE BLOOD CELL COUNT,WBC 4.6 K/uL (3.2-11.0)
[2023-03-16 12:09] LABS: A/G RATIO 1.4 (1.2-2.2); ALANINE AMINOTRANSFERASE,ALT 25 U/L (12-78); ALBUMIN 3.7 g/dL (3.4-5.0); ALKALINE PHOSPHATASE 59 U/L (46-116); ASPARTATE AMNIOTRANSFERASE,AST 22 U/L (15-37); BILIRUBIN TOTAL 0.4 mg/dL (0.2-1.0); BLOOD UREA NITROGEN,BUN 10 mg/dL (7-18); CALCIUM 9.1 mg/dL (8.5-10.1); CARBON DIOXIDE,CO2 33 mmol/L (21-32); CHLORIDE,CL 104 mmol/L (100-108); CREATININE 0.7 mg/dL (0.6-1.0); ESTIMATED GFR 107 mL/min (>60); GLUCOSE RANDOM 104 mg/dL (74-106); POTASSIUM,K 4.4 mmol/L (3.6-5.2); PROTEIN TOTAL,TP 6.4 g/dL (6.4-8.2); SODIUM,NA 143 mmol/L (140-148)
[2023-03-16 12:14] LABS: ANION GAP 10.4 mmol/L (5.0-14.0)
[2023-03-16] MEDS ORDERED: Bupivacaine 0.5% 50 ML MDV ONE (12:20)
[2023-03-16] MEDS ORDERED: Thiamine 200 MG/2 ML MDV IM ONE (13:00)
[2023-03-16] MEDS ORDERED: Lactated Ringers 1,000 ML ONE (14:56)
[2023-03-16] MEDS ORDERED: hydrOXYzine HCL 100 MG/2 ML SDV IM ONE (16:45)
[2023-03-16 17:55] VITALS: BP 130/90; PULSE 90
== END 2023-03-16 18:00 | disposition home or self-care (01) ==
LOC: JP.SDS 09:45
PROVIDERS: ATTEND Specialist
DX: M25.851 Other specified joint disorders, right hip (principal); M76.31 Iliotibial band syndrome, right leg; G89.29 Other chronic pain; I10 Essential (primary) hypertension; G47.33 Obstructive sleep apnea (adult) (pediatric); F41.0 Panic disorder [episodic paroxysmal anxiety]; M54.12 Radiculopathy, cervical region; Z88.8 Allergy status to other drugs, medicaments and biological substances; Z79.899 Other long term (current) drug therapy; Z91.048 Other nonmedicinal substance allergy status
CPT/HCPCS: 29914; 29999; 36415; 76000; 80053; 85027; A9270; J0131; J0690; J1100; J2405; J2704; J2710; J3010; J3410; J3411; J3490; J7120

== ENCOUNTER 2024-09-24 06:14 | Day surgery (SDC) | payer MEDICARE ==
[2024-09-24] MEDS ORDERED: Midazolam 1 MG/ML 2 ML SDV ONE (07:25)
[2024-09-24] MEDS ORDERED: Propofol 200 MG/20 ML SDV ONE ×2 (07:25→08:09)
[2024-09-24] MEDS: Lactated Ringers 1,000 ML IV SCH (07:31)
[2024-09-24 09:45] VITALS: BP 147/94; PULSE 74
== END 2024-09-24 10:12 | disposition home or self-care (01) ==
LOC: JP.SDS 06:14
PROVIDERS: ATTEND Surgery
DX: Z12.11 Encounter for screening for malignant neoplasm of colon (principal); I10 Essential (primary) hypertension; K21.9 Gastro-esophageal reflux disease without esophagitis
CPT/HCPCS: G0121; J2250; J2704; J7120; 00812-QZ

== ENCOUNTER → 2025-01-22 | Day surgery (SDC) | payer MEDICARE ==
[~2025-01-22] MED LIST changes: -Dexamethasone 4 MG/ML SDV ONE; -Glycopyrrolate 0.2 MG/ML 5 ML MDV ONE; +Midazolam 1 MG/ML 2 ML SDV ONE; -Neostigmine Methylsulfate 1 MG/ML 5 ML Syringe ONE; -Ondansetron 4 MG/2 ML SDV ONE; -Rocuronium 50 MG/5 ML Vial ONE; -fentaNYL 250 MCG/5 ML SDV ONE
[2025-01-22] MEDS: Lactated Ringers 1,000 ML IV SCH (06:44)
[2025-01-22 08:40] VITALS: BP 122/86; PULSE 65
== END ==
LOC: JP.SDS 06:18
PROVIDERS: ATTEND Surgery
DX: K22.70 Barrett's esophagus without dysplasia (principal); I10 Essential (primary) hypertension; K21.9 Gastro-esophageal reflux disease without esophagitis
CPT/HCPCS: 00731; 43239; 88305; J2250; J2704; J7120